=== PATIENT | female | born 1990 | race Caucasian/White ===

== ENCOUNTER → 2022-11-12 10:28 | Outpatient (BNVA) | payer MEDICAID, SELFPAY | PROVIDERS: Visit Provider Nurse Practitioner Family | DX: N89.8 Other specified noninflammatory disorders of vagina (principal) | CPT/HCPCS: 81000 ==

== ENCOUNTER → 2022-11-15 11:44 | Outpatient (BNVA) | payer MEDICAID, SELFPAY | PROVIDERS: Visit Provider Psychiatry & Neurology Psychiatry | DX: F20.9 Schizophrenia, unspecified (principal); F15.21 Other stimulant dependence, in remission | CPT/HCPCS: 80053; 80061; 83036; 84443; 85025 ==

== ENCOUNTER 2022-11-26 15:43 | Inpatient (IN) | payer MEDICAID, SELFPAY ==
[2022-11-26 15:55] VITALS: BP 101/78; PULSE 96; RESP 18; TEMP 36.8; O2SAT 96; BMI 43.3
--- NOTE | 2022-11-26 16:09 | W.ED.PSYCHS ---
HPI - Psych General: Chief Complaint: Psychiatric Symptoms Stated Complaint: 96 hr hold Time Seen by Provider: 11/26/22 15:55 Source: patient Mode of arrival: other (Police Department for 96-hour hold) Limitations: no limitations History of Present Illness: This patient was transported to our emergency department by Police Department under the auspices of a court ordered 96-hour hold. There is no illuminating history provided in terms of affidavit's etc. with this patient. Patient states that her understanding is that she was transported here by police department because she had used meth earlier today. Her rehab facility and apparently had used meth and resulted in her winding up in our facility. She denies any current thoughts of harm to self or harm to others. She denies any other drug or alcohol use today. She denies any constitutional or physical complaints. Associated symptoms: Deny homicidal ideation or suicidal ideation Treatments prior to arrival: placed on mental health hold Review of Systems Const: Denies: fever(s) or chills Eyes: Denies: change in vision ENMT: Denies: throat pain, odynophagia, nasal congestion or nasal obstruction Card: Denies: chest pain or syncope Resp: Denies: dyspnea, productive cough or non-productive cough GI: Denies: abdominal pain, nausea, vomiting or diarrhea : Reports: amenorrhea (Approximately 3 months); Denies: flank pain or vaginal bleeding Musc: Denies: neck pain, back pain, extremity pain or extremity swelling Skin/Breast: Denies: rash Psych: Denies: suicidal ideation or homicidal ideation Endo: Denies: polyuria or polydipsia PFSH ED PFSH: Medical History Psychiatric care Schizoaffective disorder Surgical History History of left knee surgery Family History Mother Cancer cervical Other Diabetes Hyperlipidemia Hypertension Denies family history of Colon cancer Ovarian cancer Heart disease Breast cancer Uterine cancer Thyroid disease Stroke Physical Exam Narrative: EXAM NARRATIVE: The patient has some intermittent lipsmacking behavior but makes good eye contact and will answer my questions in a reasonable and goal-directed fashion. She is cooperative. Const: COMMON NORMALS: patient oriented x3 and alert GENERAL APPEARANCE: cooperative NUTRITIONAL APPEARANCE: overweight ORIENTATION/CONSCIOUSNESS: Yes awake, Yes oriented to person and Yes oriented to place HENMT: COMMON NORMALS: normocephalic, Normal nasal mucous membranes and turbinates present, moist oral mucous membranes and oropharynx normal HEAD & SCALP: normocephalic NOSE: Normal nasal mucous membranes and turbinates present Eye: COMMON NORMALS: Equal, round and reactive pupils present, EOMs intact bilaterally and conjunctivae normal CONJUNCTIVA: Yes conjunctivae normal PUPIL: Yes Equal, round and reactive pupils present Neck/C-Spine: COMMON NORMALS: full ROM and no lymphadenopathy Chest: COMMONS NORMALS: normal inspection of the chest Resp: COMMON NORMALS: normal respiratory effort and clear to auscultation bilaterally EFFORT & INSPECTION: Yes able to speak in complete sentences AUSCULTATION: clear to auscultation bilaterally Cardio: COMMON NORMALS: regular rate, regular rhythm and Peripheral pulses 2+ throughout RATE: regular rate RHYTHM: regular rhythm PERIPHERAL PULSES: Peripheral pulses 2+ throughout GI: COMMON NORMALS: Normal to inspection, nondistended, normoactive bowel sounds present INSPECTION: Yes central obesity : COMMON NORMALS: Yes no CVA tenderness BLADDER/KIDNEY EXAM: Yes no CVA tenderness Back/Pelvis: COMMON NORMALS: no CVA tenderness, no thoracic nor lumbar tenderness and thoraco-lumbar ROM normal Extremity: COMMON NORMALS: normal to inspection, full ROM and no pedal edema Neuro: COMMON NORMALS: patient oriented x3, moves all extremities and no focal motor deficits SENSORIUM/ORIENTATION: Yes alert, Yes oriented to person and Yes oriented to place Psych: COMMON NORMALS: denies homicidal ideation and denies suicidal ideation ACTIVITY/MOTOR BEHAVIOR: Yes appropriate eye contact and Yes fidgeting SPEECH: Yes delayed MOOD & AFFECT: Yes anxious THOUGHT PROCESS: Circumstantial thought process present ATTENTION/CONCENTRATION: Yes attention grossly intact Skin: COMMON NORMALS: no rashes or lesions noted, no wounds and turgor normal GENERAL SKIN EXAM: no rashes or lesions noted and turgor normal Course Reevaluation(s): Reevaluation #1: We obtained additional information included the affidavit and application for her 96-hour hold. She apparently has been displaying increasingly bizarre behavior and hallucinations according to the affidavit. Time: 17:45 Consultations: Consultation #1: Discussed with on-call psychiatrist who agreed to admit the patient. Time: 17:50 Vital Signs: Vital signs: Vital Signs Temperature 98.3 F 11/26/22 15:55 Pulse Rate 96 11/26/22 15:55 Respiratory Rate 18 11/26/22 15:55 Blood Pressure 101/78 11/26/22 15:55 Pulse Oximetry 96 11/26/22 16:13 Oxygen Delivery Me thod Room Air 11/26/22 16:13 MDM - Psych Medical Decision Making This patient was transported to our emergency department by police department with 96-hour court ordered hold for mental health evaluation. Accompanying affidavit which eventually made its way to the emergency department attested to her bizarre behavior, hallucinations and history of methamphetamine abuse. There was no current reference of homicidality or suicidality. Clinical examination reveals her to not display any signs of acute medical illness. She did have reasonable eye contact, was cooperative during the evaluation and her clinical examination was otherwise reassuring. She denies any thoughts of self-harm or harm to others at the time of her ED evaluation. She had no obvious physical stigmata on clinical examination or laboratory evaluation that would preclude her from being placed as an inpatient for additional mental health evaluation. Differential Diagnosis Likely chronic schizophrenia and drug-induced psychotic disorder Lab Data I reviewed the patient's lab results. 11/26/22 16:23 11/26/22 16:23 Laboratory Results WBC 11.07 10^3/uL (3.29-11.43) 11/26/22 16: RBC 4.46 10^6/uL (3.85-5.65) 11/26/22 16: Hgb 13.70 g/dL (11.27-16.99) 11/26/22 16:23 Hct 39.5 % (36-47) 11/26/22 16:23 MCV 88.6 fl (85-98) 11/26/22 16: MCH 30.7 pg (27-33) 11/26/22 16: MCHC 34.7 g/dL (30-55) 11/26/22 16: RDW 11.8 % (12.1-15.1) L 11/26/22 16:23 Plt Count 263 10^3/cmm (157-399) 11/26/22 16: MPV 9.3 fL (7.4-10.4) 11/26/22 16: Neut % (Auto) 63.4 % 11/26/22 16:23 Lymph % (Auto) 28.0 % 11/26/22 16:23 Cass % (Auto) 6.7 % 11/26/22 16:23 Eos % (Auto) 1.0 % 11/26/22 16:23 Baso % (Auto) 0.4 % 11/26/22 16:23 Neut # (Auto) 7.03 10^3/uL (1.8-7.7) 11/26/22 16:23 Lymph # (Auto) 3.1 10^3/uL (0.8-4.8) 11/26/22 16:23 Cass # (Auto) 0.7 10^3/uL (0.2-0.9) 11/26/22 16:23 Eos # (Auto) 0.1 10^3/uL (0.0-0.8) 11/26/22 16: Baso # (Auto) 0.0 10^3/uL (0.0-0.1) 11/26/22 16: Nucleated RBC % (auto) 0 % 11/26/22 16: Nucleated RBCs # 0.0 /100WBC 11/26/22 16:23 Sodium 141 mmol/L (136-145) 11/26/22 16:23 Potassium 3.8 mmol/L (3.5-5.1) 11/26/22 16:23 Chloride 107 mmol/L (98-107) 11/26/22 16:23 Carbon Dioxide 26 mmol/L (22-29) 11/26/22 16:23 Anion Gap 11.8 (5-19) 11/26/22 16:23 BUN 16 mg/dL (6-20) 11/26/22 16:23 Creatinine 0.7 mg/dL (0.5-0.9) 11/26/22 16:23 GFR Calculation 97.0 mL/min (90-130) 11/26/22 16:23 Glucose 95 mg/dL (65-115) 11/26/22 16:23 Calculated Osmolality 293 mOsm/kg (285-295) 11/26/22 16:23 Calcium 9.1 mg/dL (8.5-10.5) 11/26/22 16:23 Total Bilirubin 0.2 mg/dL (0.15-1.2) 11/26/22 16:23 AST 13 U/L (0-32) 11/26/22 16:23 ALT 12 U/L (0-33) 11/26/22 16:23 Alkaline Phosphatase 74 U/L (35-105) 11/26/22 16:23 Total Protein 6.6 g/dL (6.6-8.7) 11/26/22 16:23 Albumin 4.0 g/dL (3.5-5.2) 11/26/22 16:23 Globulin 2.6 g/dL (1.3-4.6) 11/26/22 16:23 Salicylates 0.4 mg/dL (3-10) L 11/26/22 16:23 Acetaminophen < 5.0 ug/mL (10-30) L 11/26/22 16:23 Ethyl Alcohol < 10 mg/dL (0-10) 11/26/22 16:23 No radiology studies performed this visit Discharge Plan Discharge Patient Disposition: Admitted As Inpatient Clinical Impression: Chronic schizophrenia, Drug-induced psychotic disorder Condition: Stable Prescriptions: No Action Invega Sustenna 234 mg/1.5 mL syringe 234 mg IM .Q 3 weeks Qty: 1.5 2RF lamotrigine 25 mg tablet 25 mg PO DAILY gabapentin 300 mg capsule 300 mg PO BID escitalopram oxalate 10 mg tablet 10 mg PO DAILY Invega 6 mg Tablet Extended Release 24 Hr 6 mg PO QAM Coding Level of Care Code ED Financial Service Professional for Samantha Loco
[2022-11-26 16:13] VITALS: O2SAT 96
[2022-11-26 16:33] LABS: Basophils % 0.4 %; Eosinophils # 0.1 10^3/uL (0.0-0.8); Hematocrit 39.5 % (36-47); Lymphocytes # 3.1 10^3/uL (0.8-4.8); Mean Corpuscular HGB Conc 34.7 g/dL (30-55); Mean Corpuscular Hemoglobin 30.7 pg (27-33); Mean Corpuscular Volume 88.6 fl (85-98); Mean Platelet Volume 9.3 fL (7.4-10.4); Monocytes # 0.7 10^3/uL (0.2-0.9); Monocytes % 6.7 %; Neutrophils # 7.03 10^3/uL (1.8-7.7); Neutrophils % 63.4 %; Nucleated Red Blood Cells % 0 %; Platelet Count 263 10^3/cmm (157-399); Red Blood Count 4.46 10^6/uL (3.85-5.65); Red Cell Distribution Width 11.8 % (12.1-15.1); White Blood Count 11.07 10^3/uL (3.29-11.43)
[2022-11-26 16:46] LABS: Alanine Aminotransferase 12 U/L (0-33); Alkaline Phosphatase 74 U/L (35-105); Anion Gap 11.8 (5-19); Aspartate Amino Transferase 13 U/L (0-32); Blood Urea Nitrogen 16 mg/dL (6-20); Calcium 9.1 mg/dL (8.5-10.5); Carbon Dioxide 26 mmol/L (22-29); Chloride 107 mmol/L (98-107); Globulin 2.6 g/dL (1.3-4.6); Glucose 95 mg/dL (65-115); Osmolality Calculated 293 mOsm/kg (285-295); Potassium 3.8 mmol/L (3.5-5.1); Salicylate 0.4 mg/dL (3-10); Sodium 141 mmol/L (136-145); Total Bilirubin 0.2 mg/dL (0.15-1.2); Total Protein 6.6 g/dL (6.6-8.7)
[2022-11-26 17:08] LABS: Acetaminophen < 5.0 ug/mL (10-30); Alcohol Level < 10 mg/dL (0-10)
[2022-11-26 17:53] VITALS: BP 121/85; PULSE 86; RESP 18; TEMP 36.9; O2SAT 97
[2022-11-26 17:58] LABS: HCG Qualitative Urine. Negative (Negative)
[2022-11-26 18:09] LABS: Amphetamines Screen Urine Negative (Negative); Barbiturates Screen Urine Negative (Negative); Benzodiazepines Screen Urine Negative (Negative); Cocaine Screen Urine Negative (Negative); Opiate Screen Urine Negative (Negative); PCP Screen Urine Negative (Negative); THC Screen Urine Negative (Negative)
[2022-11-26 19:02] LABS: HCG Qualitative Urine. Negative (Negative)
[2022-11-26] MEDS: ibuprofen 600 mg Tablet PO (19:31)
[2022-11-26 20:24] VITALS: BP 121/78; PULSE 84; RESP 20; TEMP 36.9; O2SAT 95
[2022-11-27 06:00] VITALS: BP 98/61; PULSE 80; RESP 16; TEMP 36.9; O2SAT 93
[2022-11-27] MEDS: ibuprofen 600 mg Tablet PO (09:29)
[2022-11-27] MEDS: lamoTRIgine 25 mg Tablet PO (09:30)
[2022-11-27] MEDS: escitalopram 10 mg Tablet PO (09:30)
[2022-11-27] MEDS: gabapentin 300 mg Capsule PO ×2 (09:30→18:30)
--- NOTE | 2022-11-27 09:57 | PC.NURSE ---
Patient got up to eat breakfast this morning and then went back to bed. She appears disheveled in appearance. Patient denied si/hi and avh. However, she did take an extended period of time to respond to questions and would look around the room as if she was confused.
[2022-11-27 13:20] VITALS: BP 101/64; PULSE 76; RESP 14; TEMP 36.9; O2SAT 93
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
[2022-11-27 19:34] VITALS: BP 106/77; PULSE 89; RESP 18; TEMP 36.9; O2SAT 95
[2022-11-27 19:36] VITALS: BMI 43.2
[2022-11-28 06:00] VITALS: BP 120/84; PULSE 66; RESP 16; TEMP 36.8; O2SAT 95
[2022-11-28] MEDS: escitalopram 10 mg Tablet PO (09:52)
[2022-11-28] MEDS: lamoTRIgine 25 mg Tablet PO ×2 (09:52→17:41)
[2022-11-28] MEDS: gabapentin 300 mg Capsule PO ×2 (09:53→17:41)
[2022-11-28] MEDS: ibuprofen 600 mg Tablet PO (09:53)
[2022-11-28 14:00] VITALS: BP 78/51; PULSE 76; RESP 14; TEMP 36.8; O2SAT 97
[2022-11-28] MEDS: haloperidol 5 mg Tablet PO ×2 (14:33→17:42)
--- NOTE | 2022-11-28 16:12 | P.NPUPN_ITS ---
Subjective NPU Subjective: The patient is a 32-year-old white female with a history of methamphetamine abuse and psychosis who was admitted due to bizarre behavior and active paranoia and auditory hallucinations with an inability to care for herself. The patient continued to appear to be wandering around the unit without any particular direction. She had required some prompting to engage in leaving her room and e ating and showering. Patient had not engaged in any meaningful conversation today and appeared to isolate herself throughout the day. Mental Status Exam MSE Comments: Disheveled white female who appeared older than her stated age she was sitting in dayroom with a blank stare on her face. There was significant psychomotor retardation. There was no evidence of any abnormal involuntary motor movements tics or tremors appreciated. Her speech was monotone diminished in volume and diminished in productivity with signficant paucity of speech. Her thought process was concrete as she appeared very guarded on interview. She did appear at times to be responding to internal stimuli. Her mood was described as okay. Her affect was odd and subdued. She denied any homicidal or suicidal ideation. She appeared quite paranoid and she repeatedly asked at times why the administrative underwriter was asking these questions. Her recent and remote memory appeared impaired. Her insight is feeble. Her judgment is poor. Her impulse control appeared limited. Her attention span appeared impaired. Vitals/I&O/Wt Last Vital Signs Temp 98.2 F 11/28/22 14:00 Pulse 76 11/28/22 14:00 Resp 14 11/28/22 14:00 BP 78/51 11/28/22 14:00 Pulse Ox 97 11/28/22 14:00 O2 Del Method Room Air 11/28/22 14:00 Weight last 48 hrs Weight 128.962 kg Data NPU 11/26/22 16:23 11/26/22 16:23 A&P Assessment and plan (1) Chronic schizophrenia: (2) Drug-induced psychotic disorder: (3) Post-traumatic stress disorder, chronic: (4) Methamphetamine dependence: Plan This is a 32-year-old white female with schizophrenia admitted with disorganized thinking and disorganized behavior unable to maintain safety while residing in an inpatient substance abuse treatment center. 1. ?Encourage individual, group and milieu therapy. 2. Recommend sober living treatment at the highest level of care to which the patient is willing to commit. 3. Continue q-15 minute checks for safety.? 4. Haldol 5mg bid, lamotrigine 25mg bid. Involuntary Hold Information 96 Hour Hold: 96 Hour Involuntary Admission: Yes 96 Hour Hold Ending Date: 12/02/22 96 Hour Hold Ending Time: 15:55 Attestations NPU Medical Necessity Statement*: Inpatient hospitalization is medically necessary and deemed to be the ?clinically appropriate intervention ?at this time.? We will monitor/initiate medications and make changes as indicated.?? Her likely length of stay 7-10 days. Coding Level of Care Code Acute Code for [facility] Fwd Diagnoses Chronic schizophrenia F20.9 Drug-induced psychotic disorder F19.959 Post-traumatic stress disorder, chronic F43.12 Methamphetamine dependence F15.20
[2022-11-28 20:08] VITALS: BP 106/72; PULSE 88; RESP 15; O2SAT 93
[2022-11-28] MEDS: quetiapine 300 mg Tablet 150 MG PO (21:10)
[2022-11-29 06:00] VITALS: BP 110/72; PULSE 78; RESP 15; O2SAT 95
--- NOTE | 2022-11-29 08:56 | PC.NURSE ---
During morning assessment, patient stated that she was well . Patient denies all. Patient's responses are delayed. Patient pacing in place while this nurse attempted assessment.
[2022-11-29] MEDS: gabapentin 300 mg Capsule PO ×2 (09:48→17:25)
[2022-11-29] MEDS: escitalopram 10 mg Tablet PO (09:48)
[2022-11-29] MEDS: haloperidol 5 mg Tablet PO ×2 (09:48→17:25)
[2022-11-29] MEDS: lamoTRIgine 25 mg Tablet PO ×2 (09:48→17:25)
[2022-11-29 13:23] VITALS: BP 98/62; PULSE 85; RESP 14; O2SAT 95
--- NOTE | 2022-11-29 17:07 | W.PM.NPUPNS ---
Subjective NPU Subjective: The patient is a 32-year-old white female with a history of methamphetamine abuse and psychosis who was admitted due to bizarre behavior and active paranoia and auditory hallucinations with an inability to care for herself. previous notes had indicated that the patient had been prescribed Invega IM every 3 weeks it is unknown as to when she last received her IM Invega. She was restarted back on Haldol as previously suggested by Dr. Pace and continued to appear psychotic on the unit. She had come out for breakfast and did not appear to attend groups. She had continued to struggle with completion of activities of daily living. She had reported very little regarding her overall mood and continued to appear somewhat suspicious of others. The patient answered questions using a yes no fashion and was unable to elaborate regarding anything meaningful on interview other than the fact that she stated that she did not think that she needed to go back to [facility] for addiction treatment. Mental Status Exam MSE Comments: Disheveled white female who appeared older than her stated age who was seen staring off into space. There was significant psychomotor retardation. There was no evidence of any abnormal involuntary motor movements tics or tremors appreciated. Her speech was monotone diminished in volume and diminished in productivity in speech. Her thought process was concrete as she appeared very guarded on interview. She did appear at times to be responding to internal stimuli. Her mood was described as fine. Her affect was odd and subdued. She denied any homicidal or suicidal ideation. She appeared quite paranoid and she questioned the validity of the questions asked of her. Her recent and remote memory appeared impaired. Her insight is feeble. Her judgment is poor. Her impulse control appeared limited. Her attention span appeared impaired. Vitals/I&O/Wt Last Vital Signs Temp 98.2 F 11/28/22 14:00 Pulse 85 11/29/22 13:23 Resp 14 11/29/22 13:23 BP 98/62 11/29/22 13:23 Pulse Ox 95 11/29/22 13:23 O2 Del Method Room Air 11/29/22 13:23 Weight last 48 hrs Weight 128.962 kg Data NPU 11/26/22 16:23 11/26/22 16:23 A&P Assessment and plan (1) Chronic schizophrenia: (2) Drug-induced psychotic disorder: (3) Post-traumatic stress disorder, chronic: (4) Methamphetamine dependence: Plan This is a 32-year-old white female with schizophrenia admitted with disorganized thinking and disorganized behavior unable to maintain safety while residing in an inpatient substance abuse treatment center. 1. ?Encourage individual, group and milieu therapy. 2. Recommend sober living treatment at the highest level of care to which the patient is willing to commit. 3. Continue q-15 minute checks for safety.? 4. Haldol 5mg bid, lamotrigine 25mg bid. 5. Seroquel 150mg po qhs. Awaiting clarification as to WHEN the IM INVEGA was last given, will call [facility] inpatient to determine this. Involuntary Hold Information 96 Hour Hold: 96 Hour Involuntary Admission: Yes 96 Hour Hold Ending Date: 12/02/22 96 Hour Hold Ending Time: 15:55 Attestations NPU Medical Necessity Statement*: Inpatient hospitalization is medically necessary and deemed to be the ?clinically appropriate intervention ?at this time.? We will monitor/initiate medications and make changes as indicated.?? Her likely length of stay 7-10 days. Coding Level of Care Code Acute Code for [facility] Fwd Diagnoses Chronic schizophrenia F20.9 Drug-induced psychotic disorder F19.959 Post-traumatic stress disorder, chronic F43.12 Methamphetamine dependence F15.20
[2022-11-29] MEDS: hyDROXYzine 25 mg Capsule 50 MG PO (17:47)
--- NOTE | 2022-11-29 17:48 | PC.NURSE ---
ADMINISTERED 50MG VISTARIL PO TO PATIENT FOR ANXIETY. PATIENT WANTING TO BE TRANSFERRED TO ANOTHER FLOOR TO HAVE AN IV STARTED.
[2022-11-29] MEDS: quetiapine 300 mg Tablet 150 MG PO (20:32)
[2022-11-29 20:34] VITALS: BP 110/78; PULSE 78; RESP 14; TEMP 36.7; O2SAT 93
[2022-11-30 06:00] VITALS: BP 80/56; PULSE 92; RESP 15; TEMP 36.9; O2SAT 92
[2022-11-30] MEDS: escitalopram 10 mg Tablet PO (08:17)
[2022-11-30] MEDS: lamoTRIgine 25 mg Tablet PO ×2 (08:17→17:01)
[2022-11-30] MEDS: gabapentin 300 mg Capsule PO ×2 (08:17→17:01)
[2022-11-30] MEDS: haloperidol 5 mg Tablet PO ×2 (08:17→17:01)
--- NOTE | 2022-11-30 09:41 | PC.NURSE ---
During morning assessment, patient denies SI, HI, AVH, depression, and anxiety. Patient is less delayed during conversation this morning
--- NOTE | 2022-11-30 10:59 | PC.NURSE ---
THIS NURSE CONTACTED [facility]AL[facility] TO INQUIRE ABOUT THE LAST TIME PT RECEIVED HER INVEGA INJECTIONS. [facility] NURSE MARIANELA STATED THAT SHE LAST GAVE HER AND INJECTION ON 11/08/22 AT 1430
[2022-11-30] MEDS: paliperidone palmitate 234 mg Syringe IM (12:51)
--- NOTE | 2022-11-30 12:55 | PC.NURSE ---
Administered Invega Sustenna 234mg/1.5mL in right deltoid muscle. tolerated well. no adverse reactions. Lot:[id number] EXP: 04/2024
[2022-11-30 14:00] VITALS: BP 104/71; PULSE 94; RESP 16; TEMP 36.8; O2SAT 97
--- NOTE | 2022-11-30 16:17 | P.NPUPN_ITS ---
Subjective NPU Subjective: 32-year-old white female with a history of polysubstance abuse including methamphetamine abuse who was residing in a inpatient substance abuse treatment facility but presenting with continued worsening psychosis despite being on Invega Sustenna every 3 weeks. The patient continued to appear somewhat apathetic and a motivated. She had appeared to come out of the room a little more but continued to be minimally engaged while requiring significant prompting for showering. The patient received her routine 234 mg Invega sustain a today. She was unable to provide any clear information regarding where she was going when she left here and reported that she felt that she just was able to go home instead of returning back to [facility]. The patient had reported having few social supports. Staff notes patient had been sleeping and spent much of the day in bed. Mental Status Exam MSE Comments: Malodorous obese, unkempt, white female with severe lack of eye contact with a slow and steady gait. There was note no evidence of any abnormal involuntary motor movements tics or tremors appreciated. Her speech was monotone and quality with limited speech production and limited spontaneity of speech. There did appear to be a halting sound to her speech with increased latency in speech. Her thought process was concrete and nonlinear and she struggled to answer questions appropriately. Her thought content revealed no evidence of homicidal or suicidal ideation. Appeared unwilling to discuss any of her past issues. There was no clear evidence of any bizarre delusions today. Her recent and remote memory appeared poor. Her insight is poor. Her judgment is poor. Her impulse control appeared impaired. Vitals/I&O/Wt Last Vital Signs Temp 98.3 F 11/30/22 14:00 Pulse 94 11/30/22 14:00 Resp 16 11/30/22 14:00 BP 104/71 11/30/22 14:00 Pulse Ox 97 11/30/22 14:00 O2 Del Method Room Air 11/30/22 14:00 Data NPU 11/26/22 16:23 11/26/22 16:23 A&P Assessment and plan (1) Chronic schizophrenia: (2) Drug-induced psychotic disorder: (3) Post-traumatic stress disorder, chronic: (4) Methamphetamine dependence: (5) Depression, unspecified: Plan This is a 32-year-old white female with schizophrenia admitted with disorganized thinking and disorganized behavior unable to maintain safety while residing in an inpatient substance abuse treatment center. 1. ?Encourage individual, group and milieu therapy. 2. Recommend sober living treatment at the highest level of care to which the patient is willing to commit. 3. Continue q-15 minute checks for safety.? 4. Haldol 5mg bid, lamotrigine 25mg bid, lexapro 10mg daily, Invega IM 234mg q 3 weeks given today on 11/30/22. 5. continue Seroquel 150mg po qhs. Involuntary Hold Information 96 Hour Hold: 96 Hour Involuntary Admission: Yes 96 Hour Hold Ending Date: 12/02/22 96 Hour Hold Ending Time: 15:55 Attestations NPU Medical Necessity Statement*: Inpatient hospitalization is medically necessary and deemed to be the ?clinically appropriate intervention ?at this time.? We will monitor/initiate medications and make changes as indicated.??She remains on a hold at this time and will require continued intervention. Coding Level of Care Code Acute Code for [facility] Fwd Diagnoses Chronic schizophrenia F20.9 Drug-induced psychotic disorder F19.959 Post-traumatic stress disorder, chronic F43.12 Methamphetamine dependence F15.20 Depression, unspecified F32.A
[2022-11-30] MEDS: ibuprofen 600 mg Tablet PO (16:22)
--- NOTE | 2022-11-30 16:40 | PC.NURSE ---
Patient reports kidney pain, denies pain while voiding. ordered urinalysis to check for infection.
[2022-11-30 17:07] LABS: Bilirubin Urine Neg (Negative); Blood Urine Neg (Negative); Glucose Urine UA Norm (Normal); Ketones Urine Negative (Negative); Leukocyte Esterase Urine Trace (Negative); Nitrate Urine Negative (Negative); Protein Urine Neg (Negative); Specific Gravity, Urine 1.015 (1.005-1.030); Urine Appearance Cloudy (CLEAR); Urine Color Yellow (Yellow); Urobilinogen Urine Norm (Negative); pH Urine 7 (5-7)
[2022-11-30 17:11] LABS: Bacteria Urine 1+ /hpf; Mucus Urine 1+ /hpf; RBC Urine 0-4 /hpf (0-2); WBC Urine 0-4 /hpf (0-5)
[2022-11-30 17:12] LABS: Add Urine Culture? No
[2022-11-30 19:47] VITALS: BP 106/66; PULSE 77; RESP 17; TEMP 36.7; O2SAT 95
[2022-11-30] MEDS: quetiapine 300 mg Tablet 150 MG PO (20:57)
[2022-11-30 20:58] LABS: HIV 1 & 2 Antibody Non-Reactive (Non-Reactiv); HIV 1 & 2 Antigen Non-Reactive (Non-Reactiv)
[2022-11-30 21:33] LABS: Hepatitis C Virus Antibody Non-Reactive (Nonreactive)
[2022-11-30 21:35] LABS: Rapid Plasma Reagin Syphilis Nonreactive (Nonreactive)
[2022-12-01 06:00] VITALS: BP 107/68; PULSE 60; RESP 18; TEMP 36.8; O2SAT 94
[2022-12-01] MEDS: lamoTRIgine 25 mg Tablet PO ×2 (08:58→18:24)
[2022-12-01] MEDS: gabapentin 300 mg Capsule PO ×2 (08:58→18:24)
[2022-12-01] MEDS: escitalopram 10 mg Tablet PO (08:58)
[2022-12-01] MEDS: haloperidol 5 mg Tablet PO ×2 (08:58→18:24)
[2022-12-01 14:00] VITALS: BP 112/69; PULSE 69; RESP 16; TEMP 36.6; O2SAT 98
--- NOTE | 2022-12-01 16:49 | W.PM.NPUPNS ---
Subjective NPU Subjective: 32-year-old white female with a history of polysubstance abuse including methamphetamine abuse who was residing in a inpatient substance abuse treatment facility but presenting with continued worsening psychosis despite being on Invega Sustenna every 3 weeks. Continued psychosis noted as patient had reported that she needed a line to put methamphetamine inside of her. She repeatedly asked when she could go home. She continued to isolate on the mileu and did not attend groups. She reported adequate sleep and minimized having any problems here that require medication. Mental Status Exam MSE Comments: Malodorous obese, unkempt, malodorous white female with severe lack of eye contact with a slow and steady gait. There was note no evidence of any abnormal involuntary motor movements tics or tremors appreciated. Her speech was monotone and quality with limited speech production and limited spontaneity of speech. There was continued evidence of increased latency in speech. Her thought process was concrete and nonlinear and she struggled to answer questions appropriately. Her thought content revealed no evidence of homicidal or suicidal ideation. Appeared unwilling to discuss any of her past issues. There was no clear evidence of any bizarre delusions today. Her recent and remote memory appeared poor. Her insight is poor. Her judgment is poor. Her impulse control appeared impaired. Her intelligence was commensurate with mild cognitive impairment. Vitals/I&O/Wt Last Vital Signs Temp 98 F 12/01/22 14:00 Pulse 69 12/01/22 14:00 Resp 16 12/01/22 14:00 BP 112/69 12/01/22 14:00 Pulse Ox 98 12/01/22 14:00 O2 Del Method Room Air 12/01/22 14:00 Data NPU 11/26/22 16:23 11/26/22 16:23 A&P Assessment and plan (1) Chronic schizophrenia: (2) Drug-induced psychotic disorder: (3) Post-traumatic stress disorder, chronic: (4) Methamphetamine dependence: (5) Depression, unspecified: Plan This is a 32-year-old white female with schizophrenia admitted with disorganized thinking and disorganized behavior unable to maintain safety while residing in an inpatient substance abuse treatment center. 1. ?Encourage individual, group and milieu therapy. 2. Recommend sober living treatment at the highest level of care to which the patient is willing to commit. 3. Continue q-15 minute checks for safety.? 4. Haldol 5mg bid, lamotrigine 25mg bid, lexapro 10mg daily, Invega IM 234mg q 3 weeks given 11/30/22. 5. continue Seroquel 150mg po qhs. Involuntary Hold Information 96 Hour Hold: 96 Hour Involuntary Admission: Yes 96 Hour Hold Ending Date: 12/02/22 96 Hour Hold Ending Time: 15:55 Attestations NPU Medical Necessity Statement*: Inpatient hospitalization is medically necessary and deemed to be the ?clinically appropriate intervention ?at this time.? We will monitor/initiate medications and make changes as indicated.??She remains on a hold at this time and will require continued intervention. Her likely length of stay is 7-10 days. Coding Level of Care Code Acute Code for [facility] Fwd Diagnoses Chronic schizophrenia F20.9 Drug-induced psychotic disorder F19.959 Post-traumatic stress disorder, chronic F43.12 Methamphetamine dependence F15.20 Depression, unspecified F32.A
[2022-12-01] MEDS: quetiapine 300 mg Tablet 150 MG PO (20:21)
[2022-12-01 20:48] VITALS: BP 93/60; PULSE 67; RESP 15; TEMP 36.5; O2SAT 95
[2022-12-02 06:00] VITALS: BP 111/66; PULSE 60; RESP 15; TEMP 37.1; O2SAT 94
[2022-12-02] MEDS: lamoTRIgine 25 mg Tablet PO ×2 (08:59→17:42)
[2022-12-02] MEDS: haloperidol 5 mg Tablet PO ×2 (08:59→17:42)
[2022-12-02] MEDS: escitalopram 10 mg Tablet PO (08:59)
[2022-12-02] MEDS: gabapentin 300 mg Capsule PO ×2 (08:59→17:42)
[2022-12-02] MEDS: hyDROXYzine 25 mg Capsule 50 MG PO (09:03)
--- NOTE | 2022-12-02 12:10 | P.NPUPN_ITS ---
Subjective NPU Subjective: Patient presents today reporting she was doing better and wondering about discharge. She was quite odd in her statements and was unable to speak other than strangely. She was reported things affirmatively and positively even when it was incongruent with the presentation. Mental Status Exam MSE Comments: Malodorous obese, unkempt, malodorous white female with severe lack of eye contact with a slow and steady gait. There was note no evidence of any abnormal involuntary motor movements tics or tremors appreciated. Her speech was monotone and quality with limited speech production and limited spontaneity of speech. Mood described as okay and ready go, affect odd. There was continued ev idence of increased latency in speech. Her thought process was concrete and nonlinear and she struggled to answer questions appropriately. Her thought content revealed no evidence of homicidal or suicidal ideation. Appeared unwilling to discuss any of her past issues. There was no clear evidence of any bizarre delusions today. Her recent and remote memory appeared poor. Her insight is poor. Her judgment is poor. Her impulse control appeared impaired. Her intelligence was commensurate with mild cognitive impairment. Vitals/I&O/Wt Last Vital Signs Temp 98.7 F 12/02/22 06:00 Pulse 60 12/02/22 06:00 Resp 15 12/02/22 06:00 BP 111/66 12/02/22 06:00 Pulse Ox 94 12/02/22 06:00 O2 Del Method Room Air 12/02/22 06:00 Data NPU 11/26/22 16:23 11/26/22 16:23 A&P Assessment and plan (1) Chronic schizophrenia: (2) Drug-induced psychotic disorder: (3) Post-traumatic stress disorder, chronic: (4) Methamphetamine dependence: (5) Depression, unspecified: Plan This is a 32-year-old white female with schizophrenia admitted with disorganized thinking and disorganized behavior unable to maintain safety while residing in an inpatient substance abuse treatment center. 1. ?Encourage individual, group and milieu therapy. 2. Recommend sober living treatment at the highest level of care to which the patient is willing to commit. 3. Continue q-15 minute checks for safety.? 4. Haldol 5mg bid, lamotrigine 25mg bid, lexapro 10mg daily, Invega IM 234mg q 3 weeks given 10/3/23. 5. continue Seroquel 150mg po qhs. 6. 21-day hold filed in hearing on 12/07/2022 Involuntary Hold Information 96 Hour Hold: 96 Hour Involuntary Admission: Yes 96 Hour Hold Ending Date: 12/02/22 96 Hour Hold Ending Time: 15:55 Attestations NPU Medical Necessity Statement*: Inpatient hospitalization is medically necessary and deemed to be the ?clinically appropriate intervention ?at this time.? We will monitor/initiate medications and make changes as indicated.??She remains on a hold at this time and will require continued intervention. Her likely length of stay is 7-10 days. Coding Level of Care Code Acute Code for [facility] Fwd Diagnoses Chronic schizophrenia F20.9 Drug-induced psychotic disorder F19.959 Post-traumatic stress disorder, chronic F43.12 Methamphetamine dependence F15.20 Depression, unspecified F32.A
[2022-12-02] MEDS: ibuprofen 600 mg Tablet PO (13:21)
[2022-12-02 14:00] VITALS: BP 102/62; PULSE 99; RESP 16; TEMP 36.6; O2SAT 97
[2022-12-02 17:14] LABS: Chlamydia Trachomatis RNA TMA NOT DETECTED (NOT DETECTED); Neisseria Gonorrhoeae RNA, TMA NOT DETECTED (NOT DETECTED); Trichomonas Vaginalis RNA NOT DETECTED (NOT DETECTED)
[2022-12-02] MEDS: quetiapine 300 mg Tablet 150 MG PO (20:02)
[2022-12-02 20:26] VITALS: BP 111/62; PULSE 73; RESP 16; TEMP 36.6; O2SAT 96
[2022-12-03 06:00] VITALS: BP 102/67; PULSE 79; RESP 18; TEMP 36.8; O2SAT 95
[2022-12-03] MEDS: gabapentin 300 mg Capsule PO ×2 (07:57→17:31)
[2022-12-03] MEDS: haloperidol 5 mg Tablet PO ×2 (07:57→17:31)
[2022-12-03] MEDS: escitalopram 10 mg Tablet PO (07:57)
[2022-12-03] MEDS: lamoTRIgine 25 mg Tablet PO ×2 (07:57→17:31)
--- NOTE | 2022-12-03 11:15 | W.PM.NPUPNS ---
Subjective NPU Subjective: Patient presented today reporting that she would like to leave. Outside of that she continued to be somewhat nonsensical in her speech she continued to be clearly psychotic and we discussed her being on a hold till next Tuesday and the possibility for an extension to a 21-day hold. She is taking her medication as prescribed. Mental Status Exam MSE Comments: This is an obese versus morbidly obese white female in hospital scrubs with poor grooming but adequate eye contact. She was malodorous and unkempt. No abnormal movements except for significant psychomotor agitation shifting [id number] between her feet as she almost marches in place. Cooperative with exam in mild distress. Her speech was monotone and quality with limited speech production and limited spontaneity of speech. Mood described as fine I think I am ready to go, affect odd. Her thought process was concrete and nonlinear and she struggled to answer questions appropriately. Thought content: Patient denies suicidal or homicidal ideation, there were no delusions reported but paranoia noted, she denied auditory or visual hallucinations but concerns about hallucinations exist. Attention and concentration are limited and memory appears unreliable but none were formally tested. Her insight is poor. Her judgment is poor. Her impulse control appeared impaired. Intellectual ability appears limited. Vitals/I&O/Wt Last Vital Signs Temp 98.3 F 12/03/22 06:00 Pulse 79 12/03/22 06:00 Resp 18 12/03/22 06:00 BP 102/67 12/03/22 06:00 Pulse Ox 95 12/03/22 06:00 O2 Del Method Room Air 12/03/22 06:00 Data NPU 11/26/22 16:23 11/26/22 16:23 A&P Assessment and plan (1) Chronic schizophrenia: (2) Drug-induced psychotic disorder: (3) Post-traumatic stress disorder, chronic: (4) Methamphetamine dependence: (5) Depression, unspecified: Plan This is a 32-year-old white female with schizophrenia admitted with disorganized thinking and disorganized behavior unable to maintain safety while residing in an inpatient substance abuse treatment center. 1. ?Encourage individual, group and milieu therapy. 2. Recommend sober living treatment at the highest level of care to which the patient is willing to commit. 3. Continue q-15 minute checks for safety.? 4. Haldol 5mg bid, lamotrigine 25mg bid, lexapro 10mg daily, Invega IM 234mg q 3 weeks given 11/30/22. 5. continue Seroquel 150mg po qhs. 6. 21-day hold filed in hearing on 12/07/2022 Involuntary Hold Information 96 Hour Hold: 96 Hour Involuntary Admission: Yes 96 Hour Hold Ending Date: 12/02/22 96 Hour Hold Ending Time: 15:55 Attestations NPU Medical Necessity Statement*: Inpatient hospitalization is medically necessary and deemed to be the ?clinically appropriate intervention ?at this time.? We will monitor/initiate medications and make changes as indicated.??She remains on a hold at this time and will require continued intervention. Her likely length of stay is 7-10 days. Coding Level of Care Code Acute Code for g Fwd Diagnoses Chronic schizophrenia F20.9 Drug-induced psychotic disorder F19.959 Post-traumatic stress disorder, chronic F43.12 Methamphetamine dependence F15.20 Depression, unspecified F32.A
[2022-12-03] MEDS: hyDROXYzine 25 mg Capsule 50 MG PO (12:12)
[2022-12-03 14:00] VITALS: BP 122/81; PULSE 88; RESP 14; TEMP 36.6; O2SAT 97
[2022-12-03 20:10] VITALS: BP 117/78; PULSE 84; RESP 16; TEMP 36.9; O2SAT 93
[2022-12-03] MEDS: quetiapine 300 mg Tablet 150 MG PO (20:34)
[2022-12-04 06:00] VITALS: BP 110/82; PULSE 90; RESP 16; O2SAT 94
[2022-12-04] MEDS: haloperidol 5 mg Tablet PO ×2 (08:34→17:34)
[2022-12-04] MEDS: escitalopram 10 mg Tablet PO (08:34)
[2022-12-04] MEDS: lamoTRIgine 25 mg Tablet PO ×2 (08:34→17:34)
[2022-12-04] MEDS: gabapentin 300 mg Capsule PO ×2 (08:34→17:34)
--- NOTE | 2022-12-04 08:45 | PC.NURSE ---
During morning assessment, patient denied anxiety, depression, SI, HI, and AVH. Patient reports feeling jittery still . Patient pacing in place during assessment and smaking lips. Patient's speech somewhat delayed in response. Patient to take shower.
[2022-12-04] MEDS: ibuprofen 600 mg Tablet PO ×2 (09:54→16:47)
[2022-12-04] MEDS: ondansetron 4 MG Tablet PO (10:30)
--- NOTE | 2022-12-04 10:30 | PC.NURSE ---
Administered zofran 4mg PO to patient for nausea and vomiting. Will continue to monitor.
[2022-12-04 14:00] VITALS: BP 117/70; PULSE 83; RESP 17; TEMP 36.9; O2SAT 94
--- NOTE | 2022-12-04 16:32 | W.PM.NPUPNS ---
Subjective NPU Subjective: Patient presented today continuing to be somewhat confused and clearly psychotic. She continued to make random statements with odd topics. She did not really want to talk much as at the time he spoke she had just recently vomited and she had no explanation for why she threw up. We discussed keeping an eye on things and considering a consult if she continues to feel under the weather tomorrow. Mental Status Exam MSE Comments: This is an obese versus morbidly obese white female in hospital scrubs with poor grooming but adequate eye contact. She was malodorous and unkempt. No abnormal movements except for significant psychomotor agitation shifting [id number] between her feet as she almost marches in place. Cooperative with exam in mild distress. Her speech was monotone and quality with limited speech production and limited spontaneity of speech. Mood described as fine I think I am ready to go, affect odd. Her thought process was concrete and nonlinear and she struggled to answer questions appropriately. Thought content: Patient denies suicidal or homicidal ideation, there were no delusions reported but paranoia noted, she denied auditory or visual hallucinations but concerns about hallucinations exist. Attention and concentration are limited and memory appears unreliable but none were formally tested. Her insight is poor. Her judgment is poor. Her impulse control appeared impaired. Intellectual ability appears limited. Vitals/I&O/Wt Last Vital Signs Temp 98.5 F 12/04/22 14:00 Pulse 83 12/04/22 14:00 Resp 17 12/04/22 14:00 BP 117/70 12/04/22 14:00 Pulse Ox 94 12/04/22 14:00 O2 Del Method Room Air 12/04/22 06:00 Data NPU 11/26/22 16:23 11/26/22 16:23 A&P Assessment and plan (1) Chronic schizophrenia: (2) Drug-induced psychotic disorder: (3) Post-traumatic stress disorder, chronic: (4) Methamphetamine dependence: (5) Depression, unspecified: Plan This is a 32-year-old white female with schizophrenia admitted with disorganized thinking and disorganized behavior unable to maintain safety while residing in an inpatient substance abuse treatment center. 1. ?Encourage individual, group and milieu therapy. 2. Recommend sober living treatment at the highest level of care to which the patient is willing to commit. 3. Continue q-15 minute checks for safety.? 4. Haldol 5mg bid, lamotrigine 25mg bid, lexapro 10mg daily, Invega IM 234mg q 3 weeks given 11/30/22. 5. continue Seroquel 150mg po qhs. 6. 21-day hold filed in hearing on 12/07/2022 7. Monitor for additional emesis. If issues persist tomorrow we will consider a hospitalist consult. Involuntary Hold Information 96 Hour Hold: 96 Hour Involuntary Admission: Yes 96 Hour Hold Ending Date: 12/02/22 96 Hour Hold Ending Time: 15:55 Attestations NPU Medical Necessity Statement*: Inpatient hospitalization is medically necessary and deemed to be the ?clinically appropriate intervention ?at this time.? We will monitor/initiate medications and make changes as indicated.??She remains on a hold at this time and will require continued intervention. Her likely length of stay is 7-10 days. Coding Level of Care Code Acute Code for [facility] Fwd Diagnoses Chronic schizophrenia F20.9 Drug-induced psychotic disorder F19.959 Post-traumatic stress disorder, chronic F43.12 Methamphetamine dependence F15.20 Depression, unspecified F32.A
[2022-12-04] MEDS: quetiapine 300 mg Tablet 150 MG PO (20:22)
[2022-12-04 22:00] VITALS: BP 111/70; PULSE 80; RESP 16; TEMP 36.8; O2SAT 94
[2022-12-05 06:00] VITALS: BP 166/71; PULSE 75; RESP 16; O2SAT 95
[2022-12-05] MEDS: gabapentin 300 mg Capsule PO ×2 (08:29→17:15)
[2022-12-05] MEDS: lamoTRIgine 25 mg Tablet PO ×2 (08:29→17:14)
[2022-12-05] MEDS: escitalopram 10 mg Tablet PO (08:29)
[2022-12-05] MEDS: haloperidol 5 mg Tablet PO ×2 (08:29→17:15)
[2022-12-05] MEDS: blistex lip oint 7 gm Tube 1 APPLIC TOPICAL (09:42)
--- NOTE | 2022-12-05 12:28 | P.NPUPN_ITS ---
Subjective NPU Subjective: Patient presented today reporting that she is doing okay. She is feeling better than she did yesterday and denied any additional emesis. She reports that she is tolerating the medication fine and denied any additional issues. We discussed working with the social work team on discharge possibilities when they return tomorrow but that she was still having clear psychosis per staff and pres entation and will continue here on her hold. Mental Status Exam MSE Comments: This is an obese versus morbidly obese white female in hospital scrubs with poor grooming but adequate eye contact. She was malodorous and unkempt. No abnormal movements except for significant psychomotor agitation. Cooperative with exam in mild distress. Her speech was monotone with limited speech production and limited spontaneity of speech. Mood described as fine, affect odd. Her thought process was concrete and nonlinear and she struggled to answer questions appropriately. Thought content: Patient denies suicidal or homicidal ideation, there were no delusions reported but paranoia noted, she denied auditory or visual hallucinations but concerns about hallucinations exist. Attention and concentration are limited and memory appears unreliable but none were formally tested. Her insight is poor. Her judgment is poor. Her impulse control appeared impaired. Intellectual ability appears limited. Vitals/I&O/Wt Last Vital Signs Temp 98.2 F 12/04/22 22:00 Pulse 75 12/05/22 06:00 Resp 16 12/05/22 06:00 BP 166/71 12/05/22 06:00 Pulse Ox 95 12/05/22 06:00 O2 Del Method Room Air 12/05/22 06:00 Weight last 48 hrs Weight 417.759 kg Data NPU 11/26/22 16:23 11/26/22 16:23 A&P Assessment and plan (1) Chronic schizophrenia: (2) Drug-induced psychotic disorder: (3) Post-traumatic stress disorder, chronic: (4) Methamphetamine dependence: (5) Depression, unspecified: Plan This is a 32-year-old white female with schizophrenia admitted with disorganized thinking and disorganized behavior unable to maintain safety while residing in an inpatient substance abuse treatment center. 1. ?Encourage individual, group and milieu therapy. 2. Recommend sober living treatment at the highest level of care to which the patient is willing to commit. 3. Continue q-15 minute checks for safety.? 4. Haldol 5mg bid, lamotrigine 25mg bid, lexapro 10mg daily, Invega IM 234mg q 3 weeks given 11/30/22. 5. continue Seroquel 150mg po qhs. 6. 21-day hold filed in hearing on 12/07/2022 7. Monitor for additional emesis. If issues persist tomorrow we will consider a hospitalist consult. Involuntary Hold Information 96 Hour Hold: 96 Hour Involuntary Admission: Yes 96 Hour Hold Ending Date: 12/02/22 96 Hour Hold Ending Time: 15:55 Attestations NPU Medical Necessity Statement*: Inpatient hospitalization is medically necessary and deemed to be the ?clinically appropriate intervention ?at this time.? We will monitor/initiate medications and make changes as indicated.??She remains on a hold at this time and will require continued intervention. Her likely length of stay is 7-10 days. Coding Level of Care Code Acute Code for g Fwd Diagnoses Chronic schizophrenia F20.9 Drug-induced psychotic disorder F19.959 Post-traumatic stress disorder, chronic F43.12 Methamphetamine dependence F15.20 Depression, unspecified F32.A
[2022-12-05 14:00] VITALS: BP 119/75; PULSE 102; RESP 18; TEMP 36.9; O2SAT 95
[2022-12-05] MEDS: quetiapine 300 mg Tablet 150 MG PO (20:17)
[2022-12-05 20:19] VITALS: BP 99/61; PULSE 89; RESP 15; TEMP 36.9; O2SAT 93
[2022-12-06 06:00] VITALS: BP 96/68; PULSE 81; RESP 14; TEMP 36.6; O2SAT 96
[2022-12-06] MEDS: lamoTRIgine 25 mg Tablet PO ×2 (08:18→20:53)
[2022-12-06] MEDS: escitalopram 10 mg Tablet PO (08:18)
[2022-12-06] MEDS: gabapentin 300 mg Capsule PO ×2 (08:18→20:52)
[2022-12-06] MEDS: haloperidol 5 mg Tablet PO ×2 (08:19→20:52)
--- NOTE | 2022-12-06 11:12 | W.PM.NPUPNS ---
Subjective NPU Subjective: Patient presented today reporting that she is doing okay. She continued to have odd purposeless movements like opening and closing her mouth in different ways she was moving. She reports that the medications are helpful. We discussed her 21-day hold hearing tomorrow and she was asking whether she needed to stay. We discussed her oddities and continued psychosis and the need to continue her staying to work on those psychotic symptoms. Mental Status Exam MSE Comments: This is an obese versus morbidly obese white female in hospital scrubs with poor grooming but adequate eye contact. She was malodorous and unkempt. No abnormal movements except for psychomotor agitation. She was moving her mouth up and down making it almost smacking sound and when asked why she was doing that she said because she had been in rehab for almost a year and she might still be high. Cooperative with exam in mild distress. Her speech was monotone with good mostly normal rate and volume. Mood described as fine, affect odd. Her thought process was concrete and nonlinear and she struggled to answer questions appropriately. Thought content: Patient denies suicidal or homicidal ideation, there were no delusions reported but paranoia noted, she denied auditory or visual hallucinations but concerns about hallucinations exist. Attention and concentration are limited and memory appears unreliable but none were formally tested. Her insight is poor. Her judgment is poor. Her impulse control appeared impaired. Intellectual ability appears limited. Vitals/I&O/Wt Last Vital Signs Temp 97.8 F 12/06/22 06:00 Pulse 81 12/06/22 06:00 Resp 14 12/06/22 06:00 BP 96/68 12/06/22 06:00 Pulse Ox 96 12/06/22 06:00 O2 Del Method Room Air 12/06/22 06:00 Weight last 48 hrs Weight 417.759 kg Data NPU 11/26/22 16:23 11/26/22 16:23 A&P Assessment and plan (1) Chronic schizophrenia: (2) Drug-induced psychotic disorder: (3) Post-traumatic stress disorder, chronic: (4) Methamphetamine dependence: (5) Depression, unspecified: Plan This is a 32-year-old white female with schizophrenia admitted with disorganized thinking and disorganized behavior unable to maintain safety while residing in an inpatient substance abuse treatment center. 1. ?Encourage individual, group and milieu therapy. 2. Recommend sober living treatment at the highest level of care to which the patient is willing to commit. 3. Continue q-15 minute checks for safety.? 4. Haldol 5mg bid, lamotrigine 25mg bid, lexapro 10mg daily, Invega IM 234mg q 3 weeks given 11/30/22. 5. continue Seroquel 150mg po qhs. 6. 21-day hold filed in hearing on 12/07/2022 Involuntary Hold Information 96 Hour Hold: 96 Hour Involuntary Admission: Yes 96 Hour Hold Ending Date: 12/02/22 96 Hour Hold Ending Time: 15:55 Attestations NPU Medical Necessity Statement*: Inpatient hospitalization is medically necessary and deemed to be the ?clinically appropriate intervention ?at this time.? We will monitor/initiate medications and make changes as indicated.??She remains on a hold at this time and will require continued intervention. Her likely length of stay is 7-10 days. Coding Level of Care Code Acute Code for [facility] Fwd Diagnoses Chronic schizophrenia F20.9 Drug-induced psychotic disorder F19.959 Post-traumatic stress disorder, chronic F43.12 Methamphetamine dependence F15.20 Depression, unspecified F32.A
[2022-12-06 14:00] VITALS: BP 110/77; PULSE 112; RESP 16; TEMP 36.6; O2SAT 96
[2022-12-06] MEDS: nicotine 2 mg Gum BUCCAL ×2 (15:35→18:22)
[2022-12-06] MEDS: OLANZapine 5 mg ODT PO (18:47)
--- NOTE | 2022-12-06 18:48 | PC.NURSE ---
PRN ZYPREXA ZYDIS 5 MG GIVEN PO PER PT C/O SLIGHT AGITATION. OFFERED PRN VISTARIL FOR ANXIETY, STATED IT DOESN'T HELP PATIENT REQUESTING BENADRYL FOR HER COME DOWN THEN ASKED STAFF FOR A SLEEP AID. WAS TOLD BY NURSING STAFF SHE COULDN'T HAVE PRN TRAZODONE UNTIL 8PM OR LATER.
[2022-12-06 19:46] VITALS: BP 108/88; PULSE 122; RESP 18; TEMP 36.5; O2SAT 95
[2022-12-06] MEDS: quetiapine 300 mg Tablet 150 MG PO (20:53)
[2022-12-07 06:00] VITALS: BP 100/71; PULSE 79; RESP 16; O2SAT 93
[2022-12-07] MEDS: haloperidol 5 mg Tablet PO (08:59)
[2022-12-07] MEDS: escitalopram 10 mg Tablet PO (08:59)
[2022-12-07] MEDS: nicotine 2 mg Gum BUCCAL (08:59)
[2022-12-07] MEDS: gabapentin 300 mg Capsule PO (08:59)
[2022-12-07] MEDS: lamoTRIgine 25 mg Tablet PO (08:59)
--- NOTE | 2022-12-07 10:56 | W.PM.NPUPNS ---
Subjective NPU Subjective: Patient presented today reporting that things are going fine but she wants to leave. She continued to have odd behaviors and bizarre statements per staff and during her interview. She is somewhat isolative and very unclear on what she thinks should happen. We discussed her having her 21-day hold hearing today and that this entry writer would attend that hearing express our concerns about her continued psychosis and the need for continued care. We also discussed the fact that providers at [facility] who have known her for the past 10 months believe that guardianship is the appropriate direction and have engaged in that process. Mental Status Exam MSE Comments: This is an obese versus morbidly obese white female in hospital scrubs with poor grooming but adequate eye contact. She was malodorous and unkempt. No abnormal movements except for psychomotor agitation. She was moving her mouth up and down making it almost smacking sound and when asked why she was doing that she said because she had been in rehab for almost a year and she might still be high. Cooperative with exam in mild distress. Her speech was monotone with good mostly normal rate and volume. Mood described as fine, affect odd. Her thought process was concrete and nonlinear and she struggled to answer questions appropriately. Thought content: Patient denies suicidal or homicidal ideation, there were no delusions reported but paranoia noted, she denied auditory or visual hallucinations but concerns about hallucinations exist. Attention and concentration are limited and memory appears unreliable but none were formally tested. Her insight is poor. Her judgment is poor. Her impulse control appeared impaired. Intellectual ability appears limited. Vitals/I&O/Wt Last Vital Signs Temp 97.7 F 12/06/22 19:46 Pulse 79 12/07/22 06:00 Resp 16 12/07/22 06:00 BP 100/71 12/07/22 06:00 Pulse Ox 93 12/07/22 06:00 O2 Del Method Room Air 12/06/22 19:46 Data NPU 11/26/22 16:23 11/26/22 16:23 A&P Assessment and plan (1) Chronic schizophrenia: (2) Drug-induced psychotic disorder: (3) Post-traumatic stress disorder, chronic: (4) Methamphetamine dependence: (5) Depression, unspecified: Plan This is a 32-year-old white female with schizophrenia admitted with disorganized thinking and disorganized behavior unable to maintain safety while residing in an inpatient substance abuse treatment center. 1. ?Encourage individual, group and milieu therapy. 2. Recommend sober living treatment at the highest level of care to which the patient is willing to commit. 3. Continue q-15 minute checks for safety.? 4. Haldol 5mg bid, lamotrigine 25mg bid, lexapro 10mg daily, Invega IM 234mg q 3 weeks given 11/30/22. 5. continue Seroquel 150mg po qhs. 6. 21-day hold filed in hearing on 12/07/2022 at 1500 Involuntary Hold Information 96 Hour Hold: 96 Hour Involuntary Admission: Yes 96 Hour Hold Ending Date: 12/02/22 96 Hour Hold Ending Time: 15:55 Attestations NPU Medical Necessity Statement*: Inpatient hospitalization is medically necessary and deemed to be the ?clinically appropriate intervention ?at this time.? We will monitor/initiate medications and make changes as indicated.??She remains on a hold at this time and will require continued intervention. Her likely length of stay is 7-10 days. Coding Level of Care Code Acute Code for [facility] Fwd Diagnoses Chronic schizophrenia F20.9 Drug-induced psychotic disorder F19.959 Post-traumatic stress disorder, chronic F43.12 Methamphetamine dependence F15.20 Depression, unspecified F32.A
[2022-12-07 14:00] VITALS: BP 132/90; PULSE 118; RESP 16; TEMP 36.9; O2SAT 96
--- NOTE | 2022-12-07 14:54 | PC.NURSE ---
off unit for [address]
--- NOTE | 2022-12-07 15:46 | PC.NURSE ---
RETURN TO UNIT FROM COURT
[2022-12-07] MEDS: ibuprofen 600 mg Tablet PO (16:37)
[2022-12-07] MEDS: hyDROXYzine 25 mg Capsule 50 MG PO (17:04)
--- NOTE | 2022-12-07 17:04 | PC.NURSE ---
PRN VISTARIL VISTARIL 50 MG GIVEN PO PER PT C/O STATED ANXIETY, SPECIFICALLY ASKING FOR XANAX OR KLONOPIN OR BENADRYL
[2022-12-07 21:03] VITALS: BP 85/55; PULSE 75; RESP 20; O2SAT 94
[2022-12-08 06:00] VITALS: BP 145/87; PULSE 98; RESP 18; TEMP 36.7; O2SAT 94
--- NOTE | 2022-12-08 09:14 | W.PM.NPUPNS ---
Subjective NPU Subjective: Patient presented today reporting that she is doing fine. 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 She reports that she is trying to get a job here in [place] or back in [place]. She also asked for of her recovery book eventually. She was glad that the hearing yesterday was not about guardianship but she does not seem to understand that it does appear [employer] or someone connected with [employer] is pursuing guardianship. We did discuss in court that her current functioning is suggestive that guardianship would be reasonable. Mental Status Exam MSE Comments: This is an obese versus morbidly obese white female in hospital scrubs with poor grooming but adequate eye contact. She was malodorous and unkempt. No abnormal movements except for psychomotor agitation. She was moving her mouth up and down making it almost smacking sound. Cooperative with exam in mild distress. Her speech was monotone with mostly normal rate and volume. Mood described as fine, affect odd. Her thought process was concrete and nonlinear and she struggled to answer questions appropriately. Thought content: Patient denies suicidal or homicidal ideation, there were no delusions reported but paranoia and bizarre delusions/beliefs noted, she denied auditory or visual hallucinations but concerns about hallucinations exist. Attention and concentration are limited and memory appears unreliable but none were formally tested. Her insight is poor. Her judgment is poor. Her impulse control appeared impaired. Intellectual ability appears limited. Vitals/I&O/Wt Last Vital Signs Temp 98.0 F 12/08/22 06:00 Pulse 98 12/08/22 06:00 Resp 18 12/08/22 06:00 BP 145/87 12/08/22 06:00 Pulse Ox 94 12/08/22 06:00 O2 Del Method Room Air 12/08/22 06:00 Data NPU 11/26/22 16:23 11/26/22 16:23 A&P Assessment and plan (1) Chronic schizophrenia: (2) Drug-induced psychotic disorder: (3) Post-traumatic stress disorder, chronic: (4) Methamphetamine dependence: (5) Depression, unspecified: Plan This is a 32-year-old white female with schizophrenia admitted with disorganized thinking and disorganized behavior unable to maintain safety while residing in an inpatient substance abuse treatment center. 1. ?Encourage individual, group and milieu therapy. 2. Recommend sober living treatment at the highest level of care to which the patient is willing to commit. 3. Continue q-15 minute checks for safety.? 4. Haldol 5mg bid, lamotrigine 25mg bid, lexapro 10mg daily, Invega IM 234mg q 3 weeks given 11/30/22. 5. continue Seroquel 150mg po qhs. 6. Patient placed on 21-day hold 12/07/2022. Involuntary Hold Information 96 Hour Hold: 96 Hour Involuntary Admission: Yes 96 Hour Hold Ending Date: 12/02/22 96 Hour Hold Ending Time: 15:55 Attestations NPU Medical Necessity Statement*: Inpatient hospitalization is medically necessary and deemed to be the ?clinically appropriate intervention ?at this time.? We will monitor/initiate medications and make changes as indicated.??She remains on a hold at this time and will require continued intervention. Her likely length of stay is 7-10 days. Coding Level of Care Code Acute Code for [facility] Fwd Diagnoses Chronic schizophrenia F20.9 Drug-induced psychotic disorder F19.959 Post-traumatic stress disorder, chronic F43.12 Methamphetamine dependence F15.20 Depression, unspecified F32.A
[2022-12-08] MEDS: gabapentin 300 mg Capsule PO ×2 (10:37→20:37)
[2022-12-08] MEDS: lamoTRIgine 25 mg Tablet PO ×2 (10:38→20:39)
[2022-12-08] MEDS: escitalopram 10 mg Tablet PO (10:38)
[2022-12-08] MEDS: haloperidol 5 mg Tablet PO ×2 (10:38→20:39)
[2022-12-08] MEDS: nicotine 2 mg Gum BUCCAL ×2 (12:39→17:55)
[2022-12-08 14:00] VITALS: BP 106/77; PULSE 108; RESP 18; TEMP 36.9; O2SAT 96
[2022-12-08] MEDS: hyDROXYzine 25 mg Capsule 50 MG PO (18:41)
[2022-12-08] MEDS: quetiapine 300 mg Tablet 150 MG PO (20:37)
[2022-12-08 21:02] VITALS: BP 108/62; PULSE 82; RESP 18; TEMP 36.9; O2SAT 95
[2022-12-08] MEDS: trazodone 50 mg Tablet PO (22:00)
--- NOTE | 2022-12-09 06:59 | PC.NURSE ---
pt ref vs resp 16
[2022-12-09] MEDS: haloperidol 5 mg Tablet PO ×2 (08:17→20:05)
[2022-12-09] MEDS: escitalopram 10 mg Tablet PO (08:17)
[2022-12-09] MEDS: lamoTRIgine 25 mg Tablet PO ×2 (08:17→20:06)
[2022-12-09] MEDS: gabapentin 300 mg Capsule PO ×2 (08:17→20:05)
--- NOTE | 2022-12-09 12:02 | W.PM.NPUPNS ---
Subjective NPU Subjective: Patient presented to reporting that she is doing okay. She reports getting somewhat used to being here on the unit but not wanting to stay here too long. We discussed continuing to monitor her with the medication changes and identifying when there is improvement. She is not sold on the idea of guardianship but we discussed focusing first on her getting better and then about those kind of arrangements. Mental Status Exam MSE Comments: This is an obese versus morbidly obese white female in hospital scrubs with poor grooming but adequate eye contact. She was malodorous and unkempt. No abnormal movements except for psychomotor agitation. She was moving her mouth up and down making almost smacking sound. Cooperative with exam in mild distress. Her speech was monotone with mostly normal rate and volume. Mood described as fine, affect odd. Her thought process was concrete and nonlinear and she struggled to answer questions appropriately. Thought content: Patient denies suicidal or homicidal ideation, there were no delusions reported but paranoia and bizarre delusions/beliefs noted, she denied auditory or visual hallucinations but concerns about hallucinations exist. Attention and concentration are limited and memory appears unreliable but none were formally tested. Her insight is poor. Her judgment is poor. Her impulse control appeared impaired. Intellectual ability appears limited. Vitals/I&O/Wt Last Vital Signs Temp 98.5 F 12/08/22 21:02 Pulse 82 12/08/22 21:02 Resp 18 12/08/22 21:02 BP 108/62 12/08/22 21:02 Pulse Ox 95 12/08/22 21:02 O2 Del Method Room Air 12/08/22 21:02 Data NPU 11/26/22 16:23 11/26/22 16:23 A&P Assessment and plan (1) Chronic schizophrenia: (2) Drug-induced psychotic disorder: (3) Post-traumatic stress disorder, chronic: (4) Methamphetamine dependence: (5) Depression, unspecified: Plan This is a 32-year-old white female with schizophrenia admitted with disorganized thinking and disorganized behavior unable to maintain safety while residing in an inpatient substance abuse treatment center. 1. ?Encourage individual, group and milieu therapy. 2. Recommend sober living treatment at the highest level of care to which the patient is willing to commit. 3. Continue q-15 minute checks for safety.? 4. Haldol 5mg bid, lamotrigine 25mg bid, lexapro 10mg daily, Invega IM 234mg q 3 weeks given 11/30/22. 5. continue Seroquel 150mg po qhs. 6. Patient placed on 21-day hold 12/07/2022. Involuntary Hold Information 96 Hour Hold: 96 Hour Involuntary Admission: Yes 96 Hour Hold Ending Date: 12/02/22 96 Hour Hold Ending Time: 15:55 Attestations NPU Medical Necessity Statement*: Inpatient hospitalization is medically necessary and deemed to be the ?clinically appropriate intervention ?at this time.? We will monitor/initiate medications and make changes as indicated.??She remains on a hold at this time and will require continued intervention. Her likely length of stay is 7-10 days. Coding Level of Care Code Acute Code for g Fwd Diagnoses Chronic schizophrenia F20.9 Drug-induced psychotic disorder F19.959 Post-traumatic stress disorder, chronic F43.12 Methamphetamine dependence F15.20 Depression, unspecified F32.A
[2022-12-09 14:00] VITALS: BP 107/66; PULSE 86; RESP 17; TEMP 36.9; O2SAT 95
[2022-12-09] MEDS: quetiapine 300 mg Tablet 150 MG PO (20:05)
[2022-12-09 20:27] VITALS: BP 99/65; PULSE 85; RESP 16; TEMP 36.9; O2SAT 94
[2022-12-10 06:00] VITALS: RESP 16
--- NOTE | 2022-12-10 06:56 | PC.NURSE ---
patient refused vitals RR obtained
[2022-12-10] MEDS: gabapentin 300 mg Capsule PO ×2 (08:22→21:23)
[2022-12-10] MEDS: haloperidol 5 mg Tablet PO ×2 (08:22→21:24)
[2022-12-10] MEDS: lamoTRIgine 25 mg Tablet PO ×2 (08:22→21:24)
[2022-12-10] MEDS: nicotine 2 mg Gum BUCCAL ×2 (08:22→18:22)
[2022-12-10] MEDS: escitalopram 10 mg Tablet PO (08:22)
[2022-12-10 14:00] VITALS: BP 106/73; PULSE 86; RESP 16; TEMP 36.9; O2SAT 95
--- NOTE | 2022-12-10 14:04 | P.NPUPN_ITS ---
Subjective NPU Subjective: Patient presented today reporting that she is doing fine. We did discuss the guardianship pursuit of [employer]. She continues to say she does not think she needs a guardian but continues to have limitations functionally. We discussed the importance of her working with the treatment team to get better so that she could argue against guardianship. Otherwise she is somewhat isolative per staff and observation. Mental Status Exam MSE Comments: This is an obese versus morbidly obese white female in hospital scrubs with poor grooming but adequate eye contact. She was malodorous and unkempt. No abnormal movements except for psychomotor agitation. She was moving her mouth up and down making almost smacking sound. Cooperative with exam in mild distress. Her speech was monotone with mostly normal rate and volume. Mood described as fine, affect odd. Her thought process was concrete and nonlinear and she struggled to answer questions appropriately. Thought content: Patient denies suicidal or homicidal ideation, there were no delusions reported but paranoia and bizarre delusions/beliefs noted, she denied auditory or visual hallucinations but concerns about hallucinations exist. Attention and concentration are limited and memory appears unreliable but none were formally tested. Her insight is poor. Her judgment is poor. Her impulse control appeared impaired. Intellect ual ability appears limited. Vitals/I&O/Wt Last Vital Signs Temp 98.4 F 12/09/22 20:27 Pulse 85 12/09/22 20:27 Resp 16 12/10/22 06:00 BP 99/65 12/09/22 20:27 Pulse Ox 94 12/09/22 20:27 O2 Del Method Room Air 12/09/22 20:27 Data NPU 11/26/22 16:23 11/26/22 16:23 A&P Assessment and plan (1) Chronic schizophrenia: (2) Drug-induced psychotic disorder: (3) Post-traumatic stress disorder, chronic: (4) Methamphetamine dependence: (5) Depression, unspecified: Plan This is a 32-year-old white female with schizophrenia admitted with disorganized thinking and disorganized behavior unable to maintain safety while residing in an inpatient substance abuse treatment center. 1. ?Encourage individual, group and milieu therapy. 2. Recommend sober living treatment at the highest level of care to which the patient is willing to commit. 3. Continue q-15 minute checks for safety.? 4. Haldol 5mg bid, lamotrigine 25mg bid, lexapro 10mg daily, Invega IM 234mg q 3 weeks given 11/30/22. 5. continue Seroquel 150mg po qhs. 6. Patient placed on 21-day hold 12/07/2022. Involuntary Hold Information 96 Hour Hold: 96 Hour Involuntary Admission: Yes 96 Hour Hold Ending Date: 12/02/22 96 Hour Hold Ending Time: 15:55 Attestations NPU Medical Necessity Statement*: Inpatient hospitalization is medically necessary and deemed to be the ?clinically appropriate intervention ?at this time.? We will monitor/initiate medications and make changes as indicated.??She remains on a hold at this time and will require continued intervention. Her likely length of stay is 7-10 days. Coding Level of Care Code Acute Code for g Fwd Diagnoses Chronic schizophrenia F20.9 Drug-induced psychotic disorder F19.959 Post-traumatic stress disorder, chronic F43.12 Methamphetamine dependence F15.20 Depression, unspecified F32.A
[2022-12-10] MEDS: nicotine 4 mg lozenge MUCOUS MEM (15:50)
--- NOTE | 2022-12-10 20:58 | PC.NURSE ---
PT IN BED RESTING WITH COVERS OVER HEAD. ANSWERED ALL QUESTIONS YES/NO, VERY EVASIVE. PT WAS ENCOURAGED TO COME TAKE PM MEDS 3 SEPARATE TIMES AND CONTINUES TO DECLINE AND STAY IN BED. PT DENIES SI/HI AND AVH AT THIS TIME. DENIES PAIN. LAST BM ON 12/10/22
[2022-12-10] MEDS: quetiapine 300 mg Tablet 150 MG PO (21:24)
--- NOTE | 2022-12-10 21:25 | PC.NURSE ---
PT CAME TO NURSES STATION AND TOOK ALL PM MEDS ORDERED.
[2022-12-11 06:00] VITALS: BP 94/65; PULSE 87; RESP 16; TEMP 36.7; O2SAT 92
--- NOTE | 2022-12-11 08:25 | W.PM.NPUPNS ---
Subjective NPU Subjective: Patient presented today reporting that she is doing okay. For the second day in a row she is asking about Suboxone. We discussed contacting [facility] to see what their thoughts are given her history and their experience with her. Especially because once she is deemed stable she would likely return there and they are working on guardianship. She was okay with that plan. Otherwise she denies any concerns or problems. Mental Status Exam MSE Comments: This is an obese versus morbidly obese white female in hospital scrubs with poor grooming but adequate eye contact. She was malodorous and unkempt. No abnormal movements except for psychomotor agitation. She was moving her mouth up and down making almost smacking sound. Cooperative with exam in mild distress. Her speech was monotone with mostly normal rate and volume. Mood described as fine, affect odd. Her thought process was concrete and nonlinear and she struggled to answer questions appropriately. Thought content: Patient denies suicidal or homicidal ideation, there were no delusions reported but paranoia and bizarre delusions/beliefs noted, she denied auditory or visual hallucinations but concerns about hallucinations exist. Attention and concentration are limited and memory appears unreliable but none were formally tested. Her insight is poor. Her judgment is poor. Her impulse control appeared impaired. Intellectual ability appears limited. Vitals/I&O/Wt Last Vital Signs Temp 98.1 F 12/11/22 06:00 Pulse 87 12/11/22 06:00 Resp 16 12/11/22 06:00 BP 94/65 12/11/22 06:00 Pulse Ox 92 12/11/22 06:00 O2 Del Method Room Air 12/11/22 06:00 Data NPU 11/26/22 16:23 11/26/22 16:23 A&P Assessment and plan (1) Chronic schizophrenia: (2) Drug-induced psychotic disorder: (3) Post-traumatic stress disorder, chronic: (4) Methamphetamine dependence: (5) Depression, unspecified: Plan This is a 32-year-old white female with schizophrenia admitted with disorganized thinking and disorganized behavior unable to maintain safety while residing in an inpatient substance abuse treatment center. 1. ?Encourage individual, group and milieu therapy. 2. Recommend sober living treatment at the highest level of care to which the patient is willing to commit. 3. Continue q-15 minute checks for safety.? 4. Haldol 5mg bid, lamotrigine 25mg bid, lexapro 10mg daily, Invega IM 234mg q 3 weeks given 11/30/22. 5. continue Seroquel 150mg po qhs. 6. Patient placed on 21-day hold 12/07/2022. Involuntary Hold Information 96 Hour Hold: 96 Hour Involuntary Admission: Yes 96 Hour Hold Ending Date: 12/02/22 96 Hour Hold Ending Time: 15:55 Attestations NPU Medical Necessity Statement*: Inpatient hospitalization is medically necessary and deemed to be the ?clinically appropriate intervention ?at this time.? We will monitor/initiate medications and make changes as indicated.??She remains on a hold at this time and will require continued intervention. Her likely length of stay is 7-10 days. Coding Level of Care Code Acute Code for g Fwd Diagnoses Chronic schizophrenia F20.9 Drug-induced psychotic disorder F19.959 Post-traumatic stress disorder, chronic F43.12 Methamphetamine dependence F15.20 Depression, unspecified F32.A
[2022-12-11] MEDS: lamoTRIgine 25 mg Tablet PO ×2 (08:37→20:32)
[2022-12-11] MEDS: haloperidol 5 mg Tablet PO ×2 (08:37→20:32)
[2022-12-11] MEDS: escitalopram 10 mg Tablet PO (08:37)
[2022-12-11] MEDS: gabapentin 300 mg Capsule PO ×2 (08:37→20:32)
[2022-12-11 14:00] VITALS: BP 108/72; PULSE 81; RESP 16; TEMP 36.8; O2SAT 93
[2022-12-11] MEDS: nicotine 2 mg Gum BUCCAL (16:15)
[2022-12-11 20:09] VITALS: BP 86/59; PULSE 82; RESP 16; TEMP 36.7; O2SAT 96
--- NOTE | 2022-12-11 20:30 | PC.NURSE ---
PT OBSERVED EATING A SANDWICH WHILE LAYING DOWN FLAT ON HER BACK. PT WAS ENCOURAGED TO SIT UP TO EAT. PT DECLINES STATING I ALWAYS EAT LIKE THIS I'M FINE. PT WAS EDUCATED ON ADVERSE AFFECTS THAT CAN ARISE WHILE EATING LAYING FLAT. PT CONTINUED TO IGNORE RN. PT REPORTS PAIN IN MY KIDNEYS. RATES THE PAIN A 1/10, THE PAIN SCALE WAS EXPLAINED TO PT, PT THEN CHANGED HER RESPONSE TO 4/10. PT WAS UNABLE TO POINT TO HER KIDNEYS AND SHOW ME WHERE THE PAIN WAS. RN WILL ADMINISTER IBUPROFEN WHEN PT COMES UP FOR PM MEDS. PT DENIES SI/HI AND AVH AT THIS TIME. PT VERY EVASIVE AND DOES NOT CONVERSE APPROPRIATELY WITH STAFF. PT WAS ENCOURAGED 2 TIMES TO COME TO THE [facility] TO GET MEDS BUT PT HAS NOT ARRIVED. WILL CONTINUE TO ENCOURAGE MEDICATIONS. SUPPORT WAS VOICED.
[2022-12-11] MEDS: ibuprofen 600 mg Tablet PO (20:31)
[2022-12-11] MEDS: quetiapine 300 mg Tablet 150 MG PO (20:32)
[2022-12-12 06:00] VITALS: BP 108/70; PULSE 71; RESP 15; TEMP 36.9; O2SAT 93; BMI 43.7
[2022-12-12] MEDS: gabapentin 300 mg Capsule PO ×2 (09:41→20:25)
[2022-12-12] MEDS: lamoTRIgine 25 mg Tablet PO ×2 (09:41→20:25)
[2022-12-12] MEDS: escitalopram 10 mg Tablet PO (09:41)
[2022-12-12] MEDS: haloperidol 5 mg Tablet PO ×2 (09:41→20:25)
[2022-12-12 10:09] LABS: Add Urine Microscopic? YES; Bilirubin Urine Neg (Negative); Blood Urine Neg (Negative); Glucose Urine UA Norm (Normal); Ketones Urine Negative (Negative); Leukocyte Esterase Urine Negative (Negative); Nitrate Urine Negative (Negative); Protein Urine Neg (Negative); Specific Gravity, Urine 1.015 (1.005-1.030); Urine Appearance Hazy (CLEAR); Urine Color Yellow (Yellow); Urobilinogen Urine Norm (Negative); pH Urine 6.5 (5-7)
[2022-12-12 10:11] LABS: Squamous Epithelial Cell Urine 25-40 /hpf (0-5); WBC Urine RARE /hpf (0-5)
[2022-12-12 10:12] LABS: Add Urine Culture? No; Bacteria Urine 2+ /hpf; Mucus Urine 2+ /hpf
--- NOTE | 2022-12-12 12:41 | W.PM.NPUPNS ---
Subjective NPU Subjective: Patient presented today reporting that she is doing okay. She continued to her team of wondering if she could have Suboxone as part of her treatment regimen. We continue to discuss that we would connect with [facility] tomorrow when there is full staff returns and they are more likely to answer the phone to find out if Suboxone is ever been considered or if they think there is any role he could play in her recovery given their much greater knowledge of her and her history. Otherwise she continues to be in her room a lot and we encouraged less isolation. Mental Status Exam MSE Comments: This is an obese versus morbidly obese white female in hospital scrubs with poor grooming but adequate eye contact. She was malodorous and unkempt. No abnormal movements except for psychomotor agitation. She was moving her mouth up and down making almost smacking sound. Cooperative with exam in mild distress. Her speech was monotone with mostly normal rate and volume. Mood described as fine, affect odd. Her thought process was concrete and nonlinear and she struggled to answer questions appropriately. Thought content: Patient denies suicidal or homicidal ideation, there were no delusions reported but paranoia and bizarre delusions/beliefs noted, she denied auditory or visual hallucinations but concerns about hallucinations exist. Attention and concentration are limited and memory appears unreliable but none were formally tested. Her insight is poor. Her judgment is poor. Her impulse control appeared impaired. Intellectual ability appears limited. Vitals/I&O/Wt Last Vital Signs Temp 98.5 F 12/12/22 06:00 Pulse 71 12/12/22 06:00 Resp 15 12/12/22 06:00 BP 108/70 12/12/22 06:00 Pulse Ox 93 12/12/22 06:00 O2 Del Method Room Air 12/12/22 06:00 Weight last 48 hrs Weight 130.408 kg Weight 130.408 kg Data NPU 11/26/22 16:23 11/26/22 16:23 A&P Assessment and plan (1) Chronic schizophrenia: (2) Drug-induced psychotic disorder: (3) Post-traumatic stress disorder, chronic: (4) Methamphetamine dependence: (5) Depression, unspecified: Plan This is a 32-year-old white female with schizophrenia admitted with disorganized thinking and disorganized behavior unable to maintain safety while residing in an inpatient substance abuse treatment center. 1. ?Encourage individual, group and milieu therapy. 2. Recommend sober living treatment at the highest level of care to which the patient is willing to commit. 3. Continue q-15 minute checks for safety.? 4. Haldol 5mg bid, lamotrigine 25mg bid, lexapro 10mg daily, Invega IM 234mg q 3 weeks given 11/30/22. We will speak to [facility] tomorrow and find out if there is any role that Suboxone has played or they feel could play in the progress of her recovery. 5. continue Seroquel 150mg po qhs. 6. Patient placed on 21-day hold 12/07/2022. Involuntary Hold Information 96 Hour Hold: 96 Hour Involuntary Admission: Yes 96 Hour Hold Ending Date: 12/02/22 96 Hour Hold Ending Time: 15:55 Attestations NPU Medical Necessity Statement*: Inpatient hospitalization is medically necessary and deemed to be the ?clinically appropriate intervention ?at this time.? We will monitor/initiate medications and make changes as indicated.??She remains on a hold at this time and will require continued intervention. Her likely length of stay is 7-10 days. Coding Level of Care Code Acute Code for g Fwd Diagnoses Chronic schizophrenia F20.9 Drug-induced psychotic disorder F19.959 Post-traumatic stress disorder, chronic F43.12 Methamphetamine dependence F15.20 Depression, unspecified F32.A
[2022-12-12 14:00] VITALS: BP 108/72; PULSE 93; RESP 18; TEMP 36.5; O2SAT 96
[2022-12-12] MEDS: nicotine 2 mg Gum BUCCAL (17:44)
--- NOTE | 2022-12-12 18:06 | PC.NURSE ---
Patient asked this RN, do you have any tobacco I can have? This RN stated I did not, but did offer nicotine chewing gum and patient chose to try it. She also asked for job applications for multiple fast food chains and several were printed and given to her.
[2022-12-12] MEDS: ibuprofen 600 mg Tablet PO (18:46)
[2022-12-12 19:30] VITALS: BP 111/73; PULSE 89; RESP 13; TEMP 36.8; O2SAT 95
[2022-12-12] MEDS: quetiapine 300 mg Tablet 150 MG PO (20:25)
--- NOTE | 2022-12-12 20:38 | PC.NURSE ---
IN BED RESTING AROUSES TO VOICE. PT DENIES SI/HI AND AVH AT THIS TIME. URINALYSIS RESULTS REVIEWED. PT THOUGHT SHE HAD A UTI, PT WAS EDUCATED THAT THE UA WAS NEGATIVE, PT ENCOURAGED TO INCREASE PO INTAKE. PT EVASIVE WITH STAFF AND CONTINUES TO HAVE TIMES SHE IS IMPULSIVE. ALL QUESTIONS ANSWERED AND SUPPORT WAS VOICED.
[2022-12-13 06:00] VITALS: BP 113/70; PULSE 76; RESP 14; TEMP 36.9; O2SAT 95
[2022-12-13] MEDS: haloperidol 5 mg Tablet PO ×2 (08:35→20:33)
[2022-12-13] MEDS: escitalopram 10 mg Tablet PO (08:35)
[2022-12-13] MEDS: lamoTRIgine 25 mg Tablet PO ×2 (08:35→20:32)
[2022-12-13] MEDS: gabapentin 300 mg Capsule PO ×2 (08:35→20:32)
--- NOTE | 2022-12-13 13:58 | P.NPUPN_ITS ---
Subjective NPU Subjective: Patient presented today reporting that she is doing fine and adjusting to the medications. She once again brought up the request about Suboxone. We discussed that we were awaiting some kind of response from the [facility] staff about where things were. We did identify that the guardianship paperwork has been filed and we are hopeful for a speedy movement towards a trial/hearing date. Otherwise she denied any problems with her medications but does continue to be fairly isolative per staff and per observation. Mental Status Exam MSE Comments: This is an obese versus morbidly obese white female in hospital scrubs with poor grooming but adequate eye contact. She was malodorous and unkempt. No abnormal movements except for psychomotor agitation. She was moving her mouth up and down making almost smacking sound. Cooperative with exam in mild distress. Her speech was monotone with mostly normal rate and volume. Mood described as fine, affect odd. Her thought process was concrete and nonlinear and she struggled to answer questions appropriately. Thought content: Patient denies suicidal or homicidal ideation, there were no delusions reported but paranoia and bizarre delusions/beliefs noted, she denied auditory or visual hallucinations but concerns about hallucinations exist. Attention and concentration are limited and memory appears unreliable but none were formally tested. Her insight is poor. Her judgment is poor. Her impulse control appeared impaired. Intelle ctual ability appears limited. Vitals/I&O/Wt Last Vital Signs Temp 98.4 F 12/13/22 06:00 Pulse 76 12/13/22 06:00 Resp 14 12/13/22 06:00 BP 113/70 12/13/22 06:00 Pulse Ox 95 12/13/22 06:00 O2 Del Method Room Air 12/13/22 06:00 Weight last 48 hrs Weight 130.408 kg Weight 130.408 kg Data NPU 11/26/22 16:23 11/26/22 16:23 Micro: Microbiology 12/12/22 09:46 Urine Culture - Preliminary Urine,Clean Catch Gram Negative Rods Microbiology 12/12/22 09:46 Urine,Clean Catch Urine Culture - Preliminary Gram Negative Rods A&P Assessment and plan (1) Chronic schizophrenia: (2) Drug-induced psychotic disorder: (3) Post-traumatic stress disorder, chronic: (4) Methamphetamine dependence: (5) Depression, unspecified: Plan This is a 32-year-old white female with schizophrenia admitted with disorganized thinking and disorganized behavior unable to maintain safety while residing in a inpatient substance abuse treatment center. 1. ?Encourage individual, group and milieu therapy. 2. Recommend sober living treatment at the highest level of care to which the patient is willing to commit. 3. Continue q-15 minute checks for safety.? 4. Haldol 5mg bid, lamotrigine 25mg bid, lexapro 10mg daily, Invega IM 234mg q 3 weeks given 11/30/22. We will speak to [facility] tomorrow and find out if there is any role that Suboxone has played or they feel could play in the progr ess of her recovery. 5. continue Seroquel 150mg po qhs. 6. Patient placed on 21-day hold 12/07/2022. Involuntary Hold Information 96 Hour Hold: 96 Hour Involuntary Admission: Yes 96 Hour Hold Ending Date: 12/02/22 96 Hour Hold Ending Time: 15:55 Attestations NPU Medical Necessity Statement*: Inpatient hospitalization is medically necessary and deemed to be the ?clinically appropriate intervention ?at this time.? We will monitor/initiate m edications and make changes as indicated.??She remains on a hold at this time and will require continued intervention. Her likely length of stay is 7-10 days. Coding Level of Care Code Acute Code for [facility] Fwd Diagnoses Chronic schizophrenia F20.9 Drug-induced psychotic disorder F19.959 Post-traumatic stress disorder, chronic F43.12 Methamphetamine dependence F15.20 Depression, unspecified F32.A
[2022-12-13 14:00] VITALS: BP 124/91; PULSE 89; RESP 18; TEMP 36.7; O2SAT 99
[2022-12-13] MEDS: ibuprofen 600 mg Tablet PO (17:15)
[2022-12-13] MEDS: nicotine 2 mg Gum BUCCAL (18:03)
[2022-12-13 20:08] VITALS: BP 96/63; PULSE 93; RESP 18; TEMP 36.8; O2SAT 96
[2022-12-13] MEDS: quetiapine 300 mg Tablet 150 MG PO (20:32)
--- NOTE | 2022-12-13 21:19 | PC.NURSE ---
IN BED AROUSES TO VOICE. PT DENIES PAIN. DENIES SI/HI AND AVH AT THIS TIME. PT WAS ENCOURAGED TO GET UP AND PIN WORKER HER ROOM DUE TO HAVING TRASH, SNACK WRAPPERS AND FOOD IN THE FLOOR. PT DECLINED AT FIRST BUT DID EVENTUALLY GET UP AND CLEAN UP THE ROOM. PT WAS EDUCATED ON THE NEED TO CLEAN AND CARE FOR SELF. PT VERBALIZED UNDERSTANDING. TOOK PM MEDICATIONS WITHOUT ISSUES. SUPPORT VOICED.
[2022-12-14] MEDS: gabapentin 300 mg Capsule PO ×2 (10:47→20:55)
[2022-12-14] MEDS: haloperidol 5 mg Tablet PO ×2 (10:47→20:56)
[2022-12-14] MEDS: escitalopram 10 mg Tablet PO (10:48)
[2022-12-14] MEDS: lamoTRIgine 25 mg Tablet PO ×2 (10:48→20:56)
--- NOTE | 2022-12-14 13:26 | W.PM.NPUPNS ---
Subjective NPU Subjective: Patient presented today continuing to really focus on her desire for Suboxone. She reiterated her addiction and the medication helping with her withdrawal. We once again discussed the fact that she had been in a sober living facility for the last 10 to 12 months and they are not being continuum withdrawal symptoms this along away from use. We discussed the fact that guardianship paperwork has been filed and that we would not be clear on whether she would be returning to [facility] or not at the end of this process. Mental Status Exam MSE Comments: This is an obese versus morbidly obese white female in hospital scrubs with poor grooming but adequate eye contact. She was less malodorous and unkempt. No abnormal movements except for mild psychomotor agitation. She was moving her mouth up and down making almost smacking sound. Cooperative with exam in mild distress. Her speech was monotone with mostly normal rate and volume. Mood described as fine, affect odd. Her thought process was concrete and nonlinear and she struggled to answer questions appropriately. Thought content: Patient denies suicidal or homicidal ideation, there were no delusions reported but paranoia and bizarre delusions/beliefs noted, she denied auditory or visual hallucinations but concerns about hallucinations exist. Attention and concentration are limited and memory appears unreliable but none were formally tested. Her insight is poor. Her judgment is poor. Her impulse control appeared impaired. Intellectual ability appears limited. Vitals/I&O/Wt Last Vital Signs Temp 98.3 F 12/13/22 20:08 Pulse 93 12/13/22 20:08 Resp 18 12/13/22 20:08 BP 96/63 12/13/22 20:08 Pulse Ox 96 12/13/22 20:08 O2 Del Method Room Air 12/13/22 20:08 Data NPU 11/26/22 16:23 11/26/22 16:23 Micro: Microbiology 12/12/22 09:46 Urine Culture - Final Urine,Clean Catch Proteus mirabilis Microbiology 12/12/22 09:46 Urine,Clean Catch Urine Culture - Final Proteus mirabilis A&P Assessment and plan (1) Chronic schizophrenia: (2) Drug-induced psychotic disorder: (3) Post-traumatic stress disorder, chronic: (4) Methamphetamine dependence: (5) Depression, unspecified: Plan This is a 32-year-old white female with schizophrenia admitted with disorganized thinking and disorganized behavior unable to maintain safety while residing in an inpatient substance abuse treatment center. 1. ?Encourage individual, group and milieu therapy. 2. Recommend sober living treatment at the highest level of care to which the patient is willing to commit. 3. Continue q-15 minute checks for safety.? 4. Haldol 5mg bid, lamotrigine 25mg bid, lexapro 10mg daily, Invega IM 234mg q 3 weeks given 11/30/22. We will speak to [facility] tomorrow and find out if there is any role that Suboxone has played or they feel could play in the progress of her recovery. 5. continue Seroquel 150mg po qhs. 6. Patient placed on 21-day hold 12/07/2022. Involuntary Hold Information 96 Hour Hold: 96 Hour Involuntary Admission: Yes 96 Hour Hold Ending Date: 12/02/22 96 Hour Hold Ending Time: 15:55 Attestations NPU Medical Necessity Statement*: Inpatient hospitalization is medically necessary and deemed to be the ?clinically appropriate intervention ?at this time.? We will monitor/initiate medications and make changes as indicated.??She remains on a hold at this time and will require continued intervention. Her likely length of stay is 7-10 days. Coding Level of Care Code Acute Code for [facility] Fwd Diagnoses Chronic schizophrenia F20.9 Drug-induced psychotic disorder F19.959 Post-traumatic stress disorder, chronic F43.12 Methamphetamine dependence F15.20 Depression, unspecified F32.A
[2022-12-14 14:00] VITALS: BP 105/70; PULSE 90; RESP 18; TEMP 36.7; O2SAT 94
[2022-12-14] MEDS: OLANZapine 5 mg ODT PO (18:07)
[2022-12-14] MEDS: nicotine 2 mg Gum BUCCAL (18:09)
[2022-12-14 20:28] VITALS: BP 107/72; PULSE 115; RESP 15; TEMP 37; O2SAT 94
[2022-12-14] MEDS: quetiapine 300 mg Tablet 150 MG PO (20:55)
[2022-12-14] MEDS: trazodone 50 mg Tablet PO (20:56)
[2022-12-15 06:00] VITALS: BP 99/62; PULSE 88; RESP 15; TEMP 36.8; O2SAT 95
[2022-12-15] MEDS: haloperidol 5 mg Tablet PO ×2 (10:46→20:08)
[2022-12-15] MEDS: gabapentin 300 mg Capsule PO ×2 (10:47→20:08)
[2022-12-15] MEDS: lamoTRIgine 25 mg Tablet PO ×2 (10:47→20:08)
[2022-12-15] MEDS: escitalopram 10 mg Tablet PO (10:47)
[2022-12-15 14:00] VITALS: BP 96/65; PULSE 89; RESP 20; TEMP 36.6; O2SAT 98
[2022-12-15] MEDS: naltrexone hcl 50 mg Tablet PO (18:32)
[2022-12-15] MEDS: quetiapine 300 mg Tablet 150 MG PO (20:08)
--- NOTE | 2022-12-15 20:14 | W.PM.NPUPNS ---
Subjective NPU Subjective: Patient presented today reporting that she is still wanting to start Suboxone. She continues to report that it is for withdrawal and cravings. We discussed that we need to talk to her team at [facility] and they were not feeling that that would be a good plan. However we did discuss the risks, benefits and alternatives of starting naltrexone which she has been on in the past and she understood and agreed to proceed as is documented in this note. Mental Status Exam MSE Comments: This is an obese versus morbidly obese white female in hospital scrubs with poor grooming but adequate eye contact. She was malodorous and less unkempt. No abnormal movements except for mild psychomotor agitation. She continued to have her marching in place she was moving her mouth up and down making almost smacking sound. Cooperative with exam in mild distress. Her speech was monotone with mostly normal rate and volume. Mood described as fine, affect odd. Her thought process was concrete and nonlinear and she struggled to answer questions appropriately. Thought content: Patient denies suicidal or homicidal ideation, there were no delusions reported but paranoia and bizarre delusions/beliefs noted, she denied auditory or visual hallucinations but concerns about hallucinations exist. Attention and concentration are limited and memory appears unreliable but none were formally tested. Her insight is poor. Her judgment is poor. Her impulse control appeared impaired. Intellectual ability appears limited. Vitals/I&O/Wt Last Vital Signs Temp 97.9 F 12/15/22 14:00 Pulse 89 12/15/22 14:00 Resp 20 H 12/15/22 14:00 BP 96/65 12/15/22 14:00 Pulse Ox 98 12/15/22 14:00 O2 Del Method Room Air 12/15/22 06:00 Data NPU 11/26/22 16:23 11/26/22 16:23 A&P Assessment and plan (1) Chronic schizophrenia: (2) Drug-induced psychotic disorder: (3) Post-traumatic stress disorder, chronic: (4) Methamphetamine dependence: (5) Depression, unspecified: Plan This is a 32-year-old white female with schizophrenia admitted with disorganized thinking and disorganized behavior unable to maintain safety while residing in an inpatient substance abuse treatment center. 1. ?Encourage individual, group and milieu therapy. 2. Recommend sober living treatment at the highest level of care to which the patient is willing to commit. 3. Continue q-15 minute checks for safety.? 4. Haldol 5mg bid, lamotrigine 25mg bid, lexapro 10mg daily, Invega IM 234mg q 3 weeks given 11/30/22. [facility] reported concern with Suboxone as a part of her treatment plan. Start naltrexone 50 mg p.o. daily. 5. continue Seroquel 150mg po qhs. 6. Patient placed on 21-day hold 12/07/2022. Involuntary Hold Information 96 Hour Hold: 96 Hour Involuntary Admission: Yes 96 Hour Hold Ending Date: 12/02/22 96 Hour Hold Ending Time: 15:55 Attestations NPU Medical Necessity Statement*: Inpatient hospitalization is medically necessary and deemed to be the ?clinically appropriate intervention ?at this time.? We will monitor/initiate medications and make changes as indicated.??She remains on a hold at this time and will require continued intervention. Her likely length of stay is 7-10 days. Coding Level of Care Code Acute Code for [facility] Fwd Diagnoses Chronic schizophrenia F20.9 Drug-induced psychotic disorder F19.959 Post-traumatic stress disorder, chronic F43.12 Methamphetamine dependence F15.20 Depression, unspecified F32.A
[2022-12-15 20:19] VITALS: BP 119/80; PULSE 104; RESP 18; TEMP 36.4; O2SAT 96
[2022-12-16 06:00] VITALS: BP 116/73; PULSE 80; RESP 18; TEMP 36.8; O2SAT 94
[2022-12-16] MEDS: haloperidol 5 mg Tablet PO ×2 (08:59→20:08)
[2022-12-16] MEDS: lamoTRIgine 25 mg Tablet PO ×2 (08:59→20:08)
[2022-12-16] MEDS: naltrexone hcl 50 mg Tablet PO (08:59)
[2022-12-16] MEDS: gabapentin 300 mg Capsule PO ×2 (08:59→20:08)
[2022-12-16] MEDS: escitalopram 10 mg Tablet PO (08:59)
--- NOTE | 2022-12-16 13:05 | W.PM.NPUPNS ---
Subjective NPU Subjective: Patient presented today reporting that she is doing okay. She continues to ask about Suboxone that we continue to talk to her about her [facility] treatment plan. She continues to have mostly isolative behavior lying in bed a lot when she is up she is marching in place and endorsing that that is related to anxiety. We discussed the fact that guardianship process is underway. Mental Status Exam MSE Comments: This is an obese versus morbidly obese white female in hospital scrubs with poor grooming but adequate eye contact. She was malodorous and less unkempt. No abnormal movements except for mild psychomotor agitation. She continued to have her marching in place she was moving her mouth up and down making almost smacking sound. Cooperative with exam in mild distress. Her speech was monotone with mostly normal rate and volume. Mood described as fine, affect odd. Her thought process was concrete and nonlinear and she struggled to answer questions appropriately. Thought content: Patient denies suicidal or homicidal ideation, there were no delusions reported but paranoia and bizarre delusions/beliefs noted, she denied auditory or visual hallucinations but concerns about hallucinations exist. Attention and concentration are limited and memory appears unreliable but none were formally tested. Her insight is poor. Her judgment is poor. Her impulse control appeared impaired. Intellectual ability appears limited. Vitals/I&O/Wt Last Vital Signs Temp 98.2 F 12/16/22 06:00 Pulse 80 12/16/22 06:00 Resp 18 12/16/22 06:00 BP 116/73 12/16/22 06:00 Pulse Ox 94 12/16/22 06:00 O2 Del Method Room Air 12/16/22 06:00 Data NPU 11/26/22 16:23 11/26/22 16:23 A&P Assessment and plan (1) Chronic schizophrenia: (2) Drug-induced psychotic disorder: (3) Post-traumatic stress disorder, chronic: (4) Methamphetamine dependence: (5) Depression, unspecified: Plan This is a 32-year-old white female with schizophrenia admitted with disorganized thinking and disorganized behavior unable to maintain safety while residing in an inpatient substance abuse treatment center. 1. ?Encourage individual, group and milieu therapy. 2. Recommend sober living treatment at the highest level of care to which the patient is willing to commit. 3. Continue q-15 minute checks for safety.? 4. Haldol 5mg bid, lamotrigine 25mg bid, lexapro 10mg daily, Invega IM 234mg q 3 weeks given 11/30/22. Heather booker reported concern with Suboxone as a part of her treatment plan. Started naltrexone 50 mg p.o. daily. 5. continue Seroquel 150mg po qhs. 6. Patient placed on 21-day hold 12/07/2022. Involuntary Hold Information 96 Hour Hold: 96 Hour Involuntary Admission: Yes 96 Hour Hold Ending Date: 12/02/22 96 Hour Hold Ending Time: 15:55 Attestations NPU Medical Necessity Statement*: Inpatient hospitalization is medically necessary and deemed to be the ?clinically appropriate intervention ?at this time.? We will monitor/initiate medications and make changes as indicated.??She remains on a hold at this time and will require continued intervention. Her likely length of stay is 7-10 days. Coding Level of Care Code Acute Code for [facility] Diagnoses Chronic schizophrenia F20.9 Drug-induced psychotic disorder F19.959 Post-traumatic stress disorder, chronic F43.12 Methamphetamine dependence F15.20 Depression, unspecified F32.A
[2022-12-16 14:00] VITALS: BP 122/84; PULSE 79; RESP 16; TEMP 36.3; O2SAT 94
[2022-12-16] MEDS: ibuprofen 600 mg Tablet PO (15:24)
[2022-12-16] MEDS: nicotine 2 mg Gum BUCCAL (16:36)
[2022-12-16 19:34] VITALS: BP 126/86; PULSE 86; RESP 14; TEMP 36.4; O2SAT 98
[2022-12-16] MEDS: quetiapine 300 mg Tablet 150 MG PO (20:08)
--- NOTE | 2022-12-17 06:43 | PC.NURSE ---
Pt refused vitals. Pt resp 16
--- NOTE | 2022-12-17 07:26 | PC.NURSE ---
Patient resting in bed with eyes open, tapping feet quickly against one another. She denies avh and si/hi. She does state that she did not sleep well last night and that she usually does, but couldn't think of any factors that made it more difficult to sleep.
[2022-12-17] MEDS: haloperidol 5 mg Tablet PO ×2 (08:33→20:12)
[2022-12-17] MEDS: escitalopram 10 mg Tablet PO (08:33)
[2022-12-17] MEDS: naltrexone hcl 50 mg Tablet PO (08:33)
[2022-12-17] MEDS: gabapentin 300 mg Capsule PO ×2 (08:33→20:12)
[2022-12-17] MEDS: lamoTRIgine 25 mg Tablet PO (08:33)
--- NOTE | 2022-12-17 11:07 | P.NPUPN_ITS ---
Subjective NPU Subjective: Patient presented today being more calm about the Suboxone. We continue to discuss the plan for guardianship and the lack of clarity for whether she will [facility] to finish out her wait for placement or not. We discussed the possibility of different options as we are talking to her people at [facility] about level 2 which paperwork will be filed today or Tuesday. Otherwise she reports being okay but is continuing to be fairly isolative to her room. Mental Status Exam MSE Comments: This is an obese versus morbidly obese white female in hospital scrubs with poor grooming but adequate eye contact. She was malodorous and less unkempt. No abnormal movements except for mild psychomotor agitation. She continued to have her marching in place she was moving her mouth up and down making almost smacking sound. Cooperative with exam in mild distress. Her speech was monotone with mostly normal rate and volume. Mood described as fine, affect odd. Her thought process was concrete and nonlinear and she struggled to answer questions appropriately. Thought content: Patient denies suicidal or homicidal ideation, there were no delusions reported but paranoia and bizarre delusions/b eliefs noted, she denied auditory or visual hallucinations but concerns about hallucinations exist. Attention and concentration are limited and memory appears unreliable but none were formally tested. Her insight is poor. Her judgment is poor. Her impulse control appeared impaired. Intellectual ability appears limited. Vitals/I&O/Wt Last Vital Signs Temp 97.6 F 12/16/22 19:34 Pulse 86 12/16/22 19:34 Resp 14 12/16/22 19:34 BP 126/86 12/16/22 19:34 Pulse Ox 98 12/16/22 19:34 O2 Del Method Room Air 12/16/22 19:34 Data NPU 11/26/22 16:23 11/26/22 16:23 A&P Assessment and plan (1) Chronic schizophrenia: (2) Drug-induced psychotic disorder: (3) Post-traumatic stress disorder, chronic: (4) Methamphetamine dependence: (5) Depression, unspecified: Plan This is a 32-year-old white female with schizophrenia admitted with disorganized thinking and disorganized behavior unable to maintain safety while residing in an inpatient substance abuse treatment center. 1. ?Encourage individual, group and milieu therapy. 2. Recommend sober living treatment at the highest level of care to which the patient is willing to commit. 3. Continue q-15 minute checks for safety.? 4. Haldol 5mg bid, lamotrigine 25mg bid, increase Lamictal to 50 mg p.o. twice daily 12/17/2022, lexapro 10mg daily, Invega IM 234mg q 3 weeks given 11/30/22. Heather booker reported concern with Suboxone as a part of her treatment plan. Started naltrexone 50 mg p.o. daily. 5. continue Seroquel 150mg po qhs. 6. Patient placed on 21-day hold 12/07/2022. Involuntary Hold Information 96 Hour Hold: 96 Hour Involuntary Admission: Yes 96 Hour Hold Ending Date: 12/02/22 96 Hour Hold Ending Time: 15:55 Attestations NPU Medical Necessity Statement*: Inpatient hospitalization is medically necessary and deemed to be the ?clinically appropriate intervention ?at this time.? We will monitor/initiate medications and make changes as indicated.??She remains on a hold at this time a nd will require continued intervention. Her likely length of stay is 7-10 days. Coding Level of Care Code Acute Code for g Fwd Diagnoses Chronic schizophrenia F20.9 Drug-induced psychotic disorder F19.959 Post-traumatic stress disorder, chronic F43.12 Methamphetamine dependence F15.20 Depression, unspecified F32.A
[2022-12-17 14:00] VITALS: BP 139/81; PULSE 80; RESP 16; TEMP 36.9; O2SAT 94
[2022-12-17] MEDS: nicotine 2 mg Gum BUCCAL (18:01)
[2022-12-17 20:05] VITALS: BP 114/75; PULSE 77; RESP 16; TEMP 36.4; O2SAT 96
[2022-12-17] MEDS: quetiapine 300 mg Tablet 150 MG PO (20:12)
[2022-12-17] MEDS: lamoTRIgine 25 mg Tablet 50 MG PO (20:12)
[2022-12-18 06:00] VITALS: BP 129/73; PULSE 81; RESP 16; O2SAT 93
[2022-12-18] MEDS: haloperidol 5 mg Tablet PO ×2 (08:22→20:05)
[2022-12-18] MEDS: escitalopram 10 mg Tablet PO (08:22)
[2022-12-18] MEDS: naltrexone hcl 50 mg Tablet PO (08:22)
[2022-12-18] MEDS: lamoTRIgine 25 mg Tablet 50 MG PO ×2 (08:22→20:05)
[2022-12-18] MEDS: gabapentin 300 mg Capsule PO ×2 (08:23→20:05)
--- NOTE | 2022-12-18 09:40 | W.PM.NPUPNS ---
Subjective NPU Subjective: Patient presented today reporting that she is feeling fine. She was once again found in her room and continues to be fairly isolative in her room in general. She denied any issues with the increase in her Lamictal 50 mg p.o. twice daily and we discussed the risk for Graves-Harmeet syndrome and to be cautious for any new rashes. Otherwise she denied any concerns. We discussed Dr. Willis returning tomorrow and that he will continue the process of working with heather booker for her ultimate guardianship and placement. Mental Status Exam MSE Comments: This is an obese versus morbidly obese white female in hospital scrubs with poor grooming but adequate eye contact. She was malodorous and less unkempt. No abnormal movements except for mild psychomotor agitation. She continued to have her marching in place she was moving her mouth up and down making almost smacking sound. Cooperative with exam in mild distress. Her speech was monotone with mostly normal rate and volume. Mood described as fine, affect odd. Her thought process was concrete and nonlinear and she struggled to answer questions appropriately. Thought content: Patient denies suicidal or homicidal ideation, there were no delusions reported but paranoia and bizarre delusions/beliefs noted, she denied auditory or visual hallucinations but concerns about hallucinations exist. Attention and concentration are limited and memory appears unreliable but none were formally tested. Her insight is poor. Her judgment is poor. Her impulse control appeared impaired. Intellectual ability appears limited. Vitals/I&O/Wt Last Vital Signs Temp 97.5 F L 12/17/22 20:05 Pulse 81 12/18/22 06:00 Resp 16 12/18/22 06:00 BP 129/73 12/18/22 06:00 Pulse Ox 93 12/18/22 06:00 O2 Del Method Room Air 12/17/22 20:05 Data NPU 11/26/22 16:23 11/26/22 16:23 A&P Assessment and plan (1) Chronic schizophrenia: (2) Drug-induced psychotic disorder: (3) Post-traumatic stress disorder, chronic: (4) Methamphetamine dependence: (5) Depression, unspecified: Plan This is a 32-year-old white female with schizophrenia admitted with disorganized thinking and disorganized behavior unable to maintain safety while residing in an inpatient substance abuse treatment center. 1. ?Encourage individual, group and milieu therapy. 2. Recommend sober living treatment at the highest level of care to which the patient is willing to commit. 3. Continue q-15 minute checks for safety.? 4. Haldol 5mg bid, lamotrigine 25mg bid, increased Lamictal to 50 mg p.o. twice daily 12/17/2022, lexapro 10mg daily, Invega IM 234mg q 3 weeks given 11/30/22. Heather booker reported concern with Suboxone as a part of her treatment plan. Started naltrexone 50 mg p.o. daily. 5. continue Seroquel 150mg po qhs. 6. Patient placed on 21-day hold 12/07/2022. Involuntary Hold Information 96 Hour Hold: 96 Hour Involuntary Admission: Yes 96 Hour Hold Ending Date: 12/02/22 96 Hour Hold Ending Time: 15:55 Attestations NPU Medical Necessity Statement*: Inpatient hospitalization is medically necessary and deemed to be the ?clinically appropriate intervention ?at this time.? We will monitor/initiate medications and make changes as indicated.??She remains on a hold at this time and will require continued intervention. Her likely length of stay is 7-10 days. Coding Level of Care Code Acute Code for g Fwd Diagnoses Chronic schizophrenia F20.9 Drug-induced psychotic disorder F19.959 Post-traumatic stress disorder, chronic F43.12 Methamphetamine dependence F15.20 Depression, unspecified F32.A
[2022-12-18] MEDS: ibuprofen 600 mg Tablet PO (12:27)
[2022-12-18 13:04] VITALS: BP 116/79; PULSE 91; RESP 15; TEMP 37; O2SAT 96
[2022-12-18] MEDS: nicotine 4 mg lozenge MUCOUS MEM (15:43)
--- NOTE | 2022-12-18 16:28 | PC.NURSE ---
Outside Pt went outside in closed courtyard with group.
[2022-12-18] MEDS: diphenhydrAMINE 50 mg Capsule PO (17:47)
[2022-12-18 20:01] VITALS: BP 130/88; PULSE 96; RESP 16; TEMP 36.6; O2SAT 97
[2022-12-18] MEDS: quetiapine 300 mg Tablet 150 MG PO (20:05)
[2022-12-19 06:00] VITALS: RESP 16
--- NOTE | 2022-12-19 06:25 | PC.NURSE ---
Pt refused vital signs. Respiration Rate 16.
[2022-12-19] MEDS: gabapentin 300 mg Capsule PO ×2 (08:34→20:05)
[2022-12-19] MEDS: lamoTRIgine 25 mg Tablet 50 MG PO ×2 (08:34→20:05)
[2022-12-19] MEDS: haloperidol 5 mg Tablet PO ×2 (08:34→20:05)
[2022-12-19] MEDS: escitalopram 10 mg Tablet PO (08:34)
[2022-12-19] MEDS: naltrexone hcl 50 mg Tablet PO (08:34)
--- NOTE | 2022-12-19 13:45 | W.PM.NPUPNS ---
Subjective NPU Subjective: The patient is a 32-year-old white female with psychosis admitted with a significant history of polysubstance abuse. The patient continued to minimize having any problems here. She had remained isolative while tending poorly to her activities of daily living. She continues to show little goal-directed activity. She had been compliant with taking medications. She continued to report having cravings for methamphetamine. The patient had reported no plan to return to [facility] when she leaves here. The patient was informed that she may require some guardianship and she had rejected this as an option currently. Mental Status Exam MSE Comments: This is an obese versus morbidly obese white female in hospital scrubs with poor grooming and fleeting eye contact. She was malodorous and less unkempt. No abnormal movements except for mild psychomotor agitation. There was no evidence of any abnormal involuntary motor movements. She was partially cooperative during the exam and appeared in mild to moderate distress. Her speech was monotone with mostly normal rate and volume. Mood described as fine, Her affect was odd and subdued. Her thought process was concrete and nonlinear and she struggled to answer questions appropriately. Thought content: Patient denies suicidal or homicidal ideation, there were no overt delusions noted but paranoia and bizarre thinking was appreciated. She denied auditory or visual hallucinations but did appear at times to be responding to internal stimuli. Attention and concentration are limited and memory appears unreliable but none were formally tested. Her insight is poor. Her judgment is poor. Her impulse control appeared impaired. Intellectual ability appears limited. Vitals/I&O/Wt Last Vital Signs Temp 97.8 F 12/18/22 20:01 Pulse 96 12/18/22 20:01 Resp 16 12/19/22 06:00 BP 130/88 12/18/22 20:01 Pulse Ox 97 12/18/22 20:01 O2 Del Method Room Air 12/18/22 20:01 Weight last 48 hrs Weight 129.047 kg Data NPU 11/26/22 16:23 11/26/22 16:23 A&P Assessment and plan (1) Chronic schizophrenia: (2) Drug-induced psychotic disorder: (3) Post-traumatic stress disorder, chronic: (4) Methamphetamine dependence: (5) Depression, unspecified: Plan This is a 32-year-old white female with schizophrenia admitted with disorganized thinking and disorganized behavior unable to maintain safety while residing in an inpatient substance abuse treatment center. 1. ?Encourage individual, group and milieu therapy. 2. Recommend sober living treatment at the highest level of care to which the patient is willing to commit. 3. Continue q-15 minute checks for safety.? 4. Haldol 5mg bid, lamotrigine 25mg bid, increased Lamictal to 50 mg p.o. twice daily 12/17/2022, lexapro 10mg daily, Invega IM 234mg q 3 weeks given 11/30/22. Heather booker reported concern with Suboxone as a part of her treatment plan. Started naltrexone 50 mg p.o. daily. 5. increase Seroquel 200mg po qhs to target psychosis. Invega sustenna due 12/21/22. 6. Patient placed on 21-day hold 12/07/2022. Involuntary Hold Information 96 Hour Hold: 96 Hour Involuntary Admission: Yes 96 Hour Hold Ending Date: 12/02/22 96 Hour Hold Ending Time: 15:55 Attestations NPU Medical Necessity Statement*: Inpatient hospitalization is medically necessary and deemed to be the ?clinically appropriate intervention ?at this time.? We will monitor/initiate medications and make changes as indicated.??She remains on a hold at this time and will require continued intervention. Her likely length of stay is 7-10 days. Coding Level of Care Code Acute Code for [facility] Fwd Diagnoses Chronic schizophrenia F20.9 Drug-induced psychotic disorder F19.959 Post-traumatic stress disorder, chronic F43.12 Methamphetamine dependence F15.20 Depression, unspecified F32.A
[2022-12-19 14:00] VITALS: BP 113/76; PULSE 84; RESP 16; TEMP 36.8; O2SAT 99
[2022-12-19 19:48] VITALS: BP 134/85; PULSE 107; RESP 18; TEMP 36.5; O2SAT 98
[2022-12-19] MEDS: quetiapine 300 mg Tablet 150 MG PO (20:05)
[2022-12-19] MEDS: diphenhydrAMINE 50 mg Capsule PO (20:05)
[2022-12-20 06:00] VITALS: BP 88/54; PULSE 78; RESP 16; O2SAT 96
[2022-12-20] MEDS: gabapentin 300 mg Capsule PO ×2 (09:21→20:16)
[2022-12-20] MEDS: lamoTRIgine 25 mg Tablet 50 MG PO ×2 (09:21→20:16)
[2022-12-20] MEDS: escitalopram 10 mg Tablet PO (09:21)
[2022-12-20] MEDS: haloperidol 5 mg Tablet PO ×2 (09:21→20:16)
[2022-12-20] MEDS: naltrexone hcl 50 mg Tablet PO (09:21)
[2022-12-20 14:00] VITALS: BP 105/69; PULSE 86; RESP 16; TEMP 36.6; O2SAT 95
[2022-12-20 16:08] LABS: Basophils # 0.1 10^3/uL (0.0-0.1); Basophils % 0.7 %; Eosinophils # 0.2 10^3/uL (0.0-0.8); Eosinophils % 2.4 %; Hematocrit 41.5 % (36-47); Lymphocytes # 2.8 10^3/uL (0.8-4.8); Lymphocytes % 36.5 %; Mean Corpuscular HGB Conc 34.2 g/dL (30-55); Mean Corpuscular Hemoglobin 30.7 pg (27-33); Mean Corpuscular Volume 89.8 fl (85-98); Mean Platelet Volume 9.2 fL (7.4-10.4); Monocytes # 0.6 10^3/uL (0.2-0.9); Monocytes % 8.1 %; Neutrophils # 3.93 10^3/uL (1.8-7.7); Neutrophils % 51.4 %; Nucleated Red Blood Cells % 0 %; Platelet Count 245 10^3/cmm (157-399); Red Blood Count 4.62 10^6/uL (3.85-5.65); Red Cell Distribution Width 11.9 % (12.1-15.1); White Blood Count 7.64 10^3/uL (3.29-11.43)
--- NOTE | 2022-12-20 16:28 | P.NPUPN_ITS ---
Subjective NPU Subjective: The patient is a 32-year-old white female with psychosis admitted with a significant history of polysubstance abuse. The patient continued to isolate herself on the milieu. She had continued to appear to show a lack of motivation in regards to completing her activities of daily living. She had reported that she did not know where or what she would do after she left the hospital. She had reported some cravings for methamphetamine. She had continued when awake to engage in bizarre movements with her hand. She had continued to minimize hearing voices but remained distracted and was minimally engaged with other peers. She had reported continued to require supervision with the patient being informed that she would likely require additional support in order to live outside of the hospital. Mental Status Exam MSE Comments: This is an obese versus morbidly obese white female in hospital scrubs with poor hygiene and no eye contact. She was malodorous and less unkempt. No abnormal movements except for mild psychomotor agitation. There was no evidence of any abnormal involuntary motor movements. She was minimally cooperative during the exam and appeared in mild to moderate distress. Her speech was monotone with mostly normal volume but diminished productivity. There was increased speech latency. Mood described as okay. Her affect was odd and subdued. Her thought process was concrete and nonlinear and she struggled to answer questions appropriately. Thought content: Patient denies suicidal or homicidal ideation, there were no overt delusions noted but significant poverty of content. She denied auditory or visual hallucinations but did appear at times to be respo nding to internal stimuli. Attention and concentration are limited and memory appears unreliable but none were formally tested. Her insight is poor. Her judgment is poor. Her impulse control appeared impaired. Intellectual ability appears limited. Vitals/I&O/Wt Last Vital Signs Temp 98 F 12/20/22 14:00 Pulse 86 12/20/22 14:00 Resp 16 12/20/22 14:00 BP 105/69 12/20/22 14:00 Pulse Ox 95 12/20/22 14:00 O2 Del Method Room Air 12/20/22 14:00 Weight last 48 hrs Weight 129.047 kg Data NPU 12/20/22 15:59 11/26/22 16:23 A&P Assessment and plan (1) Chronic schizophrenia: (2) Drug-induced psychotic disorder: (3) Post-traumatic stress disorder, chronic: (4) Methamphetamine dependence: (5) Depression, unspecified: Plan This is a 32-year-old white female with schizophrenia admitted with disorganized thinking and disorganized behavior unable to maintain safety while residing in an inpatient substance abuse treatment center. 1. ?Encourage individual, group and milieu therapy. 2. Recommend sober living treatment at the highest level of care to which the patient is willing to commit. 3. Continue q-15 minute checks for safety.? 4. Decrease Haldol to 5mg at night. Check CBC as patient may be a candidate fo r Clozaril therapy. It appears unlikely at this time that the patient is going to be able to live anywhere outside of a locked facility with supervision. Guardianship appears likely at this time. Continue lamictal at 50 mg p.o. twice daily. Continue lexapro 10mg daily, Invega IM 234mg q 3 weeks given 11/30/22. Continue naltrexone 50 mg p.o. daily. 5. Continue Seroquel 200mg po qhs to target psychosis. 6. Patient placed on 21-day hold 12/07/2022. Involuntary Hold Information 96 Hour Hold: 96 Hour Involuntary Admission: Yes 96 Hour Hold Ending Date: 12/02/22 96 Hour Hold Ending Time: 15:55 Attestations NPU Medical Necessity Statement*: Inpatient hospitalization is medically necessary and deemed to be the ?clinically appropriate intervention ?at this time.? We will monitor/initiate medications and make changes as indicated.??She remains on a hold at this time and will require continued intervention. Her likely length of stay is 5-7 days. Coding Level of Care Code Acute Code for [facility] Diagnoses Chronic schizophrenia F20.9 Drug-induced psychotic disorder F19.959 Post-traumatic stress disorder, chronic F43.12 Methamphetamine dependence F15.20 Depression, unspecified F32.A
[2022-12-20 20:08] VITALS: BP 115/74; PULSE 61; RESP 15; TEMP 36.6; O2SAT 93
[2022-12-20] MEDS: quetiapine 100 mg Tablet 200 MG PO (20:16)
[2022-12-20] MEDS: diphenhydrAMINE 50 mg Capsule PO (20:16)
[2022-12-21 06:00] VITALS: BP 96/67; PULSE 85; RESP 17; O2SAT 95
[2022-12-21] MEDS: lamoTRIgine 25 mg Tablet 50 MG PO ×2 (08:32→19:50)
[2022-12-21] MEDS: escitalopram 10 mg Tablet PO (08:32)
[2022-12-21] MEDS: naltrexone hcl 50 mg Tablet PO (08:32)
[2022-12-21] MEDS: gabapentin 300 mg Capsule PO ×2 (10:35→19:49)
--- NOTE | 2022-12-21 11:54 | PC.NURSE ---
RECEIVED NEW ORDERS FROM DR. HE TO COLLECT CBC WITH AUTO DIFF TO POSSIBLY START CLOZARIL THERAPY. ORDERS PLACED. PT EDUCATED AND PT VERBALIZED UNDERSTANDING.
[2022-12-21 12:39] LABS: Basophils # 0.1 10^3/uL (0.0-0.1); Basophils % 0.6 %; Eosinophils # 0.2 10^3/uL (0.0-0.8); Eosinophils % 2.3 %; Hematocrit 44.3 % (36-47); Lymphocytes # 2.9 10^3/uL (0.8-4.8); Lymphocytes % 33.6 %; Mean Corpuscular HGB Conc 34.1 g/dL (30-55); Mean Corpuscular Hemoglobin 30.9 pg (27-33); Mean Corpuscular Volume 90.6 fl (85-98); Mean Platelet Volume 9.1 fL (7.4-10.4); Monocytes # 0.6 10^3/uL (0.2-0.9); Monocytes % 6.8 %; Neutrophils # 4.77 10^3/uL (1.8-7.7); Neutrophils % 55.6 %; Nucleated Red Blood Cells % 0 %; Platelet Count 247 10^3/cmm (157-399); Red Blood Count 4.89 10^6/uL (3.85-5.65); Red Cell Distribution Width 11.9 % (12.1-15.1); White Blood Count 8.57 10^3/uL (3.29-11.43)
[2022-12-21 14:00] VITALS: BP 113/68; PULSE 105; RESP 16; TEMP 36.6; O2SAT 96
--- NOTE | 2022-12-21 17:11 | P.NPUPN_ITS ---
Subjective NPU Subjective: The patient is a 32-year-old white female with psychosis admitted with a significant history of polysubstance abuse. The patient continued to isolate herself on the milieu. She appeared unmotivated and was not caring for her activities of daily living with significant prompting required for showering. Patient stated that everything was fine . She was unable to provide any further information regarding how she felt. Staff notes the patient had slept well. She had not elaborated in any fashion regarding how she had come here in the hospital or if she was having any problems at all. She was unable to provide any clear idea as to where she was at this time. She had minimized a [facility] history of substance abuse despite the overwhelming evidence suggesting that she had been using illicit drugs in the past. Mental Status Exam MSE Comments: This is an obese versus morbidly obese white female in hospital scrubs with poor hygiene and no eye contact while lying in bed. She was malodorous and unkempt. No abnormal movements except for signficant psychomotor retardation. There was no evidence of any abnormal involuntary motor movements. She was minimally cooperative during the exam. There was signficant evidence of apathy and lack of any goal directed behavior. Her speech was monotone with paucity of speech and truncated responses. There was increased speech latency. Mood described as okay. Her affect was odd and subdued and mood incongruent. Her thought process was concrete and nonlinear and she struggled to answer questions appropriately. Thought content: Patient denies suicidal or homicidal ideation, there were no overt delusions noted but significant poverty of content. She denied auditory or visual hallucinations but did appear at times to be respondi ng to internal stimuli. Attention and concentration are limited and memory appears unreliable but none were formally tested. Her insight is impaired. Her judgment is poor. Her impulse control appeared impaired. Intellectual ability appears limited. Vitals/I&O/Wt Last Vital Signs Temp 97.9 F 12/21/22 14:00 Pulse 105 H 12/21/22 14:00 Resp 16 12/21/22 14:00 BP 113/68 12/21/22 14:00 Pulse Ox 96 12/21/22 14:00 O2 Del Method Room Air 12/21/22 14:00 Data NPU 12/21/22 12:10 11/26/22 16:23 A&P Assessment and plan (1) Chronic schizophrenia: (2) Drug-induced psychotic disorder: (3) Post-traumatic stress disorder, chronic: (4) Methamphetamine dependence: (5) Depression, unspecified: Plan This is a 32-year-old white female with schizophrenia admitted with disorganized thinking and disorganized behavior unable to maintain safety while residing in an inpatient substance abuse treatment center. 1. ?Encourage individual, group and milieu therapy. 2. Recommend sober living treatment at the highest level of care to which the patient is willing to commit. 3. Continue q-15 minute checks for safety.? 4. ANC within normal limits, will begin Clozaril 25mg bid, will not restart IM invega as there does not appear to be any evidence of its benefits for managing psychosis despite receiving 234mg IM every 3 weeks. I am simplyifying her medication regimen and will taper Haldol as well. 5. Continue Seroquel 200mg po qhs to target psychosis taken concurrently with clozaril 6. Patient placed on 21-day hold 12/07/2022. Involuntary Hold Information 96 Hour Hold: 96 Hour Involuntary Admission: Yes 96 Hour Hold Ending Date: 12/02/22 96 Hour Hold Ending Time: 15:55 Attestations NPU Medical Necessity Statement*: Inpatient hospitalization is medically necessary and deemed to be the ?clinically appropriate intervention ?at this time.? We will monitor/initiate medications and make changes as indicated.??She remains on a hold at this time and will require continued intervention. Her likely length of stay is 10-15 days. Guardianship is being pursued. Coding Level of Care Code Acute Code for [facility] Diagnoses Chronic schizophrenia F20.9 Drug-induced psychotic disorder F19.959 Post-traumatic stress disorder, chronic F43.12 Methamphetamine dependence F15.20 Depression, unspecified F32.A
[2022-12-21] MEDS: cloZAPine 25 mg Tablet PO (17:55)
[2022-12-21] MEDS: diphenhydrAMINE 50 mg Capsule PO (19:49)
[2022-12-21] MEDS: quetiapine 100 mg Tablet 200 MG PO (19:50)
[2022-12-21] MEDS: haloperidol 1 mg Tablet 3 MG PO (19:50)
[2022-12-21 20:23] VITALS: BP 94/59; PULSE 94; RESP 17; TEMP 36.7; O2SAT 94
[2022-12-22 06:00] VITALS: BP 98/67; PULSE 92; RESP 18; TEMP 36.6; O2SAT 94
[2022-12-22] MEDS: escitalopram 10 mg Tablet PO (08:53)
[2022-12-22] MEDS: lamoTRIgine 25 mg Tablet 50 MG PO ×2 (08:53→20:37)
[2022-12-22] MEDS: cloZAPine 25 mg Tablet PO ×2 (08:53→18:08)
[2022-12-22] MEDS: gabapentin 300 mg Capsule PO ×2 (08:53→20:37)
[2022-12-22] MEDS: naltrexone hcl 50 mg Tablet PO (08:53)
[2022-12-22 14:00] VITALS: BP 114/76; PULSE 92; RESP 14; TEMP 36.9; O2SAT 95
--- NOTE | 2022-12-22 15:07 | W.PM.NPUPNS ---
Subjective NPU Subjective: The patient is a 32-year-old white female with psychosis admitted with a significant history of polysubstance abuse. The patient had minimal interaction with staff today. She had spent most of her day in her bedroom. She appeared disinterested in conversation today. She reported that everything was okay. She had reported adequate sleep. She continued to struggle with maintaining appropriate activities of daily living with significant prompting required for the patient to shower or even brush her teeth. Mental Status Exam MSE Comments: This is an obese white female in hospital scrubs with poor hygiene and no eye contact while lying in bed. She was malodorous and unkempt. No abnormal involuntary motor movements except for signficant psychomotor retardation. She was minimally cooperative during the exam. There was signficant evidence of apathy and lack of any goal directed behavior. Her speech was monotone with paucity of speech and truncated responses. There was increased speech latency. Mood described as allright. Her affect was odd and subdued and mood incongruent. Her thought process was concrete and nonlinear and she struggled to answer questions appropriately. Thought content: Patient denies suicidal or homicidal ideation, there were no overt delusions noted but significant poverty of content. She denied auditory or visual hallucinations but did appear at times to be responding to internal stimuli. Attention and concentration are limited and memory appears unreliable but none were formally tested. Her insight is impaired. Her judgment is poor. Her impulse control appeared impaired. Intellectual ability appears limited. Vitals/I&O/Wt Last Vital Signs Temp 97.9 F 12/22/22 06:00 Pulse 92 12/22/22 06:00 Resp 18 12/22/22 06:00 BP 98/67 12/22/22 06:00 Pulse Ox 94 12/22/22 06:00 O2 Del Method Room Air 12/22/22 06:00 Data NPU 12/21/22 12:10 11/26/22 16:23 A&P Assessment and plan (1) Chronic schizophrenia: (2) Drug-induced psychotic disorder: (3) Post-traumatic stress disorder, chronic: (4) Methamphetamine dependence: (5) Depression, unspecified: Plan This is a 32-year-old white female with schizophrenia admitted with disorganized thinking and disorganized behavior unable to maintain safety while residing in an inpatient substance abuse treatment center. 1. ?Encourage individual, group and milieu therapy. 2. Recommend sober living treatment at the highest level of care to which the patient is willing to commit. 3. Continue q-15 minute checks for safety.? 4. ANC within normal limits, continue Clozaril 25mg bid with increase by 25mg per day over next few weeks., will not restart IM invega as there does not appear to be any evidence of its benefits for managing psychosis despite receiving 234mg IM every 3 weeks. Discontinue Haldol, discontinue Naltrexone. 5. Continue Seroquel 200mg po qhs to target psychosis taken concurrently with clozaril 6. Patient placed on 21-day hold 12/07/2022. Guardianship likely. Involuntary Hold Information 96 Hour Hold: 96 Hour Involuntary Admission: Yes 96 Hour Hold Ending Date: 12/02/22 96 Hour Hold Ending Time: 15:55 Attestations NPU Medical Necessity Statement*: Inpatient hospitalization is medically necessary and deemed to be the ?clinically appropriate intervention ?at this time.? We will monitor/initiate medications and make changes as indicated.??She remains on a hold at this time and will require continued intervention. Her likely length of stay is 10-15 days. Guardianship is being pursued. Coding Level of Care Code Acute Code for g Fwd Diagnoses Chronic schizophrenia F20.9 Drug-induced psychotic disorder F19.959 Post-traumatic stress disorder, chronic F43.12 Methamphetamine dependence F15.20 Depression, unspecified F32.A
[2022-12-22 20:01] VITALS: BP 109/75; PULSE 112; RESP 20; TEMP 36.9; O2SAT 96
[2022-12-22] MEDS: quetiapine 100 mg Tablet 200 MG PO (20:37)
[2022-12-23 06:00] VITALS: BP 117/80; PULSE 85; RESP 14; TEMP 36.6; O2SAT 97
[2022-12-23] MEDS: cloZAPine 25 mg Tablet PO (08:37)
[2022-12-23] MEDS: gabapentin 300 mg Capsule PO ×2 (08:37→19:41)
[2022-12-23] MEDS: escitalopram 10 mg Tablet PO (08:37)
[2022-12-23] MEDS: lamoTRIgine 25 mg Tablet 50 MG PO ×2 (08:37→19:40)
[2022-12-23 14:00] VITALS: BP 97/61; PULSE 95; RESP 15; TEMP 36.8; O2SAT 95
--- NOTE | 2022-12-23 16:21 | P.NPUPN_ITS ---
Subjective NPU Subjective: The patient is a 32-year-old white female with psychosis admitted with a significant history of polysubstance abuse. The patient appeared isolative on the milieu. She had asked that she be placed on Suboxone to help with her cravings for methamphetamine. Patient had minimized any hallucinations at this time. She appeared somewhat confused and continued to make odd movements on the unit that appeared to be voluntary. She continued to engage in completion of ADLs only with prompting. She had come out of her room to eat but did not attend groups. She reported no side effects from her Clozaril at this time. The patient again was unable to describe why or how she had come to be here in the hospital. Mental Status Exam MSE Comments: This is an obese white female in hospital scrubs with poor hygiene and improved eye contact while lying in bed. She was malodorous and unkempt. No abnormal involuntary motor movements except for signficant psychomotor retardation. She was superficially cooperative during the exam. There was signficant evidence of apathy and lack of any goal directed behavior. Her speech was monotone with paucity of speech with less truncated responses. Mood described as okay. Her affect was odd and subdued and mood incongruent. Her thought process was linear but appeared to derail during the conversation. Thought content: Patient denies suicidal or homicidal ideation, there were no overt delusions noted but significant poverty of content. She denied auditory or visual hallucinations but did appear at times to be responding to internal stimuli. Attention and concentration are limited and memory appears unreliable but none were formally tested. Her insight is impaired. Her judgment is poor. Her impulse control appeared impaired. Intellectual ability appears limited. Vitals/I&O/Wt Last Vital Signs Temp 98.2 F 12/23/22 14:00 Pulse 95 12/23/22 14:00 Resp 15 12/23/22 14:00 BP 97/61 12/23/22 14:00 Pulse Ox 95 12/23/22 14:00 O2 Del Method Room Air 12/23/22 06:00 Data NPU 12/21/22 12:10 11/26/22 16:23 A&P Assessment and plan (1) Chronic schizophrenia: (2) Drug-induced psychotic disorder: (3) Post-traumatic stress disorder, chronic: (4) Methamphetamine dependence: (5) Depression, unspecified: Plan This is a 32-year-old white female with schizophrenia admitted with disorganized thinking and disorganized behavior unable to maintain safety while residing in an inpatient substance abuse treatment center. 1. ?Encourage individual, group and milieu therapy. 2. Recommend sober living treatment at the highest level of care to which the patient is willing to commit. 3. Continue q-15 minute checks for safety.? 4. ANC within normal limits, increase Clozaril 50mg bid. 5. Continue Seroquel 200mg po qhs to target psychosis taken concurrently with clozaril 6. Patient placed on 21-day hold 12/07/2022. Guardianship likely. Involuntary Hold Information 96 Hour Hold: 96 Hour Involuntary Admission: Yes 96 Hour Hold Ending Date: 12/02/22 96 Hour Hold Ending Time: 15:55 Attestations NPU Medical Necessity Statement*: Inpatient hospitalization is medically necessary and deemed to be the ?clinically appropriate intervention ?at this time.? We will monitor/initiate medications and make changes as indicated.??She remains on a hold at this time and will require continued intervention. Her likely length of stay is 10-15 days. Guardianship is being pursued. Coding Level of Care Code Acute Code for [facility] Fwd Diagnoses Chronic schizophrenia F20.9 Drug-induced psychotic disorder F19.959 Post-traumatic stress disorder, chronic F43.12 Methamphetamine dependence F15.20 Depression, unspecified F32.A
[2022-12-23] MEDS: cloZAPine 25 mg Tablet 50 MG PO (17:42)
[2022-12-23] MEDS: quetiapine 100 mg Tablet 200 MG PO (19:40)
[2022-12-23 19:50] VITALS: BP 103/65; PULSE 80; RESP 20; TEMP 37; O2SAT 98
[2022-12-24 06:00] VITALS: RESP 20
--- NOTE | 2022-12-24 06:44 | PC.NURSE ---
Pt refused vitals. resp 14
[2022-12-24] MEDS: lamoTRIgine 25 mg Tablet 50 MG PO ×2 (08:48→19:39)
[2022-12-24] MEDS: escitalopram 10 mg Tablet PO (08:48)
[2022-12-24] MEDS: gabapentin 300 mg Capsule PO ×2 (08:48→19:40)
[2022-12-24] MEDS: cloZAPine 25 mg Tablet 50 MG PO ×2 (08:48→18:08)
[2022-12-24] MEDS: nicotine 4 mg lozenge MUCOUS MEM (09:03)
[2022-12-24 14:00] VITALS: BP 100/59; PULSE 105; RESP 16; TEMP 37.2; O2SAT 95
--- NOTE | 2022-12-24 14:41 | W.PM.NPUPNS ---
Subjective NPU Subjective: The patient is a 32-year-old white female with psychosis admitted with a significant history of polysubstance abuse. Patient had reported history of opiate abuse and requested that she be placed on Suboxone. The patient had appeared less isolative today. She was seen wandering around the unit and was engaged in more conversations both with staff and with peers. She had continued to ask bizarre questions and provided bizarre answers and inappropriate answers to questions as she continued to state that she needed an IV for managing her love of methamphetamines. The patient continued to make unusual movements with his her body while walking around the unit that appeared to be voluntary. She continued to appear perplexed when asked where she had been prior to coming here into the hospital and where she may go when she leaves the hospital. Mental Status Exam MSE Comments: This is an obese white female in hospital scrubs with poor hygiene and improved eye contact while walking on the unit. Her hygiene appeared improved. No abnormal involuntary motor movements except for mild psychomotor slowing. She was superficially cooperative during the exam. There was signficant evidence of apathy and lack of any goal directed behavior. Her speech was monotone with paucity of speech with less truncated responses. Mood described as okay. Her affect was odd with strange smiling noted. Her thought process was linear but appeared to derail during the conversation. Thought content: Patient denies suicidal or homicidal ideation, there were no overt delusions noted but significant poverty of content. She denied auditory or visual hallucinations but did appear at times to be responding to internal stimuli. Attention and concentration are limited and memory appears unreliable but none were formally tested. Her insight is impaired. Her judgment is poor. Her impulse control appeared impaired. Intellectual ability appears limited. Vitals/I&O/Wt Last Vital Signs Temp 98.6 F 12/23/22 19:50 Pulse 80 12/23/22 19:50 Resp 20 H 12/24/22 06:00 BP 103/65 12/23/22 19:50 Pulse Ox 98 12/23/22 19:50 O2 Del Method Room Air 12/23/22 19:50 Data NPU 12/21/22 12:10 11/26/22 16:23 A&P Assessment and plan (1) Chronic schizophrenia: (2) Drug-induced psychotic disorder: (3) Post-traumatic stress disorder, chronic: (4) Methamphetamine dependence: (5) Depression, unspecified: Plan This is a 32-year-old white female with schizophrenia admitted with disorganized thinking and disorganized behavior unable to maintain safety while residing in an inpatient substance abuse treatment center. 1. ?Encourage individual, group and milieu therapy. 2. Recommend sober living treatment at the highest level of care to which the patient is willing to commit. 3. Continue q-15 minute checks for safety.? 4. ANC within normal limits, continue Clozaril 50mg bid. 5. Continue Seroquel 200mg po qhs to target psychosis taken concurrently with clozaril 6. Patient placed on 21-day hold 12/07/2022. Guardianship likely. Involuntary Hold Information 96 Hour Hold: 96 Hour Involuntary Admission: Yes 96 Hour Hold Ending Date: 12/02/22 96 Hour Hold Ending Time: 15:55 Attestations NPU Medical Necessity Statement*: Inpatient hospitalization is medically necessary and deemed to be the ?clinically appropriate intervention ?at this time.? We will monitor/initiate medications and make changes as indicated.??She remains on a hold at this time and will require continued intervention. Her likely length of stay is 10-15 days. Guardianship is being pursued. Coding Level of Care Code Acute Code for [facility] Fwd Diagnoses Chronic schizophrenia F20.9 Drug-induced psychotic disorder F19.959 Post-traumatic stress disorder, chronic F43.12 Methamphetamine dependence F15.20 Depression, unspecified F32.A
[2022-12-24] MEDS: buprenorphine-naloxone 4-1 mg Film 1 EACH SUBLINGUAL (18:08)
[2022-12-24] MEDS: quetiapine 100 mg Tablet 200 MG PO (19:39)
[2022-12-24 19:43] VITALS: BP 115/72; PULSE 108; RESP 16; TEMP 36.9; O2SAT 93
[2022-12-25 06:00] VITALS: BP 100/69; PULSE 102; RESP 16; TEMP 37; O2SAT 93
[2022-12-25] MEDS: gabapentin 300 mg Capsule PO ×2 (10:23→21:14)
[2022-12-25] MEDS: cloZAPine 25 mg Tablet 50 MG PO (10:23)
[2022-12-25] MEDS: lamoTRIgine 25 mg Tablet 50 MG PO ×2 (10:23→21:14)
[2022-12-25] MEDS: escitalopram 10 mg Tablet PO (10:23)
[2022-12-25] MEDS: buprenorphine-naloxone 4-1 mg Film 1 EACH SUBLINGUAL ×2 (10:24→17:27)
[2022-12-25 13:25] VITALS: BP 105/69; PULSE 91; RESP 12; TEMP 36.8; O2SAT 93
--- NOTE | 2022-12-25 14:36 | P.NPUPN_ITS ---
Subjective NPU Subjective: The patient is a 32-year-old white female with psychosis admitted with a significant history of polysubstance abuse. The patient continues to isolate herself on the milieu. She reported no side effects from her medications. She reported difficulties with falling asleep. She reported no side effects from the Suboxone that was started. She continued report cravings for methamphetamines. Patient continued to have periods of pacing in the weems often talking to herself and engaging in unusual physical movements with her hands and feet. She appeared minimally engaged in the milieu with herself or peers. She had continued to require significant prompting to engage in self-care including brushing and showering. Mental Status Exam MSE Comments: This is an obese white female in hospital scrubs with poor hygiene lying in bed appearing disinterested during the interview. Her hygiene appeared poor. No abnormal involuntary motor movements except for mild psychomotor slowing. She was superficially cooperative during the exam. There is continued evidence of apathy and lack of motivation. Her speech was monotone with truncated responses. Mood described as okay. Her affect was subdued. Her thought process was linear but appeared to derail during the conversation. Thought content: Patient denies suicidal or homicidal ideation, there were no overt delusions noted but significant poverty of content. She denied auditory or visual hallucinations but did appear at times to be responding to internal stimuli. Attention and concentration are limited and memory appears unreliable but none were formally tested. Her insight is impaired. Her judgment is poor. Her impulse control appeared impaired. Intellectual ability appears limited. Vitals/I&O/Wt Last Vital Signs Temp 98.3 F 12/25/22 13:25 Pulse 91 12/25/22 13:25 Resp 12 12/25/22 13:25 BP 105/69 12/25/22 13:25 Pulse Ox 93 12/25/22 13:25 O2 Del Method Room Air 12/25/22 13:25 Data NPU 12/21/22 12:10 11/26/22 16:23 A&P Assessment and plan (1) Chronic schizophrenia: (2) Drug-induced psychotic disorder: (3) Post-traumatic stress disorder, chronic: (4) Methamphetamine dependence: (5) Depression, unspecified: Plan This is a 32-year-old white female with schizophrenia admitted with disorganized thinking and disorganized behavior unable to maintain safety while residing in an inpatient substance abuse treatment center. 1. ?Encourage individual, group and milieu therapy. 2. Recommend sober living treatment at the highest level of care to which the patient is willing to commit. 3. Continue q-15 minute checks for safety.? 4. ANC within normal limits, increase Clozaril 75mg bid. 5. Continue Seroquel 200mg po qhs to target psychosis taken concurrently with clozaril 6. Patient placed on 21-day hold 12/07/2022. Guardianship likely. Involuntary Hold Information 96 Hour Hold: 96 Hour Involuntary Admission: Yes 96 Hour Hold Ending Date: 12/02/22 96 Hour Hold Ending Time: 15:55 Attestations NPU Medical Necessity Statement*: Inpatient hospitalization is medically necessary and deemed to be the ?clinically appropriate intervention ?at this time.? We will monitor/initiate medications and make changes as indicated.??She remains on a hold at this time and will require continued intervention. Her likely length of stay is 10-15 days. Guardianship is being pursued. Coding Level of Care Code Acute Code for [facility] Diagnoses Chronic schizophrenia F20.9 Drug-induced psychotic disorder F19.959 Post-traumatic stress disorder, chronic F43.12 Methamphetamine dependence F15.20 Depression, unspecified F32.A
[2022-12-25] MEDS: cloZAPine 25 mg Tablet 75 MG PO (17:27)
[2022-12-25 19:59] VITALS: BP 132/71; PULSE 103; RESP 12; TEMP 37; O2SAT 88
[2022-12-25] MEDS: quetiapine 100 mg Tablet 200 MG PO (21:14)
[2022-12-26 06:00] VITALS: BP 110/76; PULSE 113; RESP 16; TEMP 37.6; O2SAT 99
[2022-12-26] MEDS: buprenorphine-naloxone 4-1 mg Film 1 EACH SUBLINGUAL ×2 (12:11→20:09)
--- NOTE | 2022-12-26 13:52 | P.NPUPN_ITS ---
Subjective NPU Subjective: The patient is a 32-year-old white female with psychosis admitted with a significant history of polysubstance abuse. The patient continued to struggle with self-care. She had been spending much of the day lying in bed. She had been minimally interactive with other peers. She had reported that she was feeling less tired. She reported no current problems from her medication regimen. She continued to require prompting for managing routine ADLs. Mental Status Exam MSE Comments: This is an obese white female in hospital scrubs with poor hygiene lying in bed appearing disinterested during the interview. Her hygiene appeared poor. No abnormal involuntary motor movements except for mild psychomotor slowing. She was uncooperative during the exam answering questions with minimal use of words if at all. There is continued evidence of apathy and lack of motivation. Her speech was monotone with truncated responses. Mood endorsed as ok. Her affect was subdued and mood congruent. Fall Her thought process was linear but appeared to derail during the conversation. Thought content: Patient denies suicidal or homicidal ideation, there were no overt delusions noted but significant poverty of content. She denied auditory or visual hallucinations but did appear at times to be responding to internal stimuli. Attention and concentration are limited and memory appears unreliable but none were formally tested. Her insight is impaired. Her judgment is poor. Her impulse control appeared impaired. Intellectual ability appears commensurate with mild cognitive impairment. Vitals/I&O/Wt Last Vital Signs Temp 99.7 F H 12/26/22 06:00 Pulse 113 H 12/26/22 06:00 Resp 16 12/26/22 06:00 BP 110/76 12/26/22 06:00 Pulse Ox 99 12/26/22 06:00 O2 Del Method Room Air 12/26/22 06:00 Weight last 48 hrs Weight 129.274 kg Data NPU 12/21/22 12:10 11/26/22 16:23 A&P Assessment and plan (1) Chronic schizophrenia: (2) Drug-induced psychotic disorder: (3) Post-traumatic stress disorder, chronic: (4) Methamphetamine dependence: (5) Depression, unspecified: Plan This is a 32-year-old white female with schizophrenia admitted with disorganized thinking and disorganized behavior unable to maintain safety while residing in an inpatient substance abuse treatment center. 1. ?Encourage individual, group and milieu therapy. 2. Recommend sober living treatment at the highest level of care to which the patient is willing to commit. 3. Continue q-15 minute checks for safety.? 4. ANC (next due 12/28/22) within normal limits, increase Clozaril 75mg bid. 5. Continue Seroquel 200mg po qhs to target psychosis taken concurrently with clozaril 6. Patient placed on 21-day hold 12/07/2022. Guardianship likely. Involuntary Hold Information 96 Hour Hold: 96 Hour Involuntary Admission: Yes 96 Hour Hold Ending Date: 12/02/22 96 Hour Hold Ending Time: 15:55 Attestations NPU Medical Necessity Statement*: Inpatient hospitalization is medically necessary and deemed to be the ?clinically appropriate intervention ?at this time.? We will monitor/initiate m edications and make changes as indicated.??She remains on a hold at this time and will require continued intervention. Her likely length of stay is 10-15 days. Guardianship is being pursued. Coding Level of Care Code Acute Code for [facility] Fwd Diagnoses Chronic schizophrenia F20.9 Drug-induced psychotic disorder F19.959 Post-traumatic stress disorder, chronic F43.12 Methamphetamine dependence F15.20 Depression, unspecified F32.A
[2022-12-26 14:00] VITALS: BP 121/62; PULSE 98; RESP 16; TEMP 36.8; O2SAT 90
[2022-12-26] MEDS: quetiapine 100 mg Tablet 150 MG PO (20:09)
[2022-12-26] MEDS: lamoTRIgine 25 mg Tablet 50 MG PO (20:09)
[2022-12-26] MEDS: gabapentin 300 mg Capsule PO (20:11)
[2022-12-26] MEDS: cloZAPine 25 mg Tablet 75 MG PO (20:11)
[2022-12-26 20:46] VITALS: BP 101/73; PULSE 109; RESP 16; TEMP 36.3; O2SAT 91
[2022-12-27 06:00] VITALS: RESP 16
[2022-12-27] MEDS: buprenorphine-naloxone 4-1 mg Film 1 EACH SUBLINGUAL ×2 (09:29→17:57)
[2022-12-27] MEDS: cloZAPine 25 mg Tablet 75 MG PO (09:31)
[2022-12-27] MEDS: gabapentin 300 mg Capsule PO (09:31)
[2022-12-27] MEDS: lamoTRIgine 25 mg Tablet 50 MG PO (09:31)
[2022-12-27] MEDS: escitalopram 10 mg Tablet PO (09:31)
[2022-12-27 13:49] VITALS: BP 107/71; PULSE 84; RESP 16; TEMP 36.6; O2SAT 96
--- NOTE | 2022-12-27 15:29 | W.PM.NPUPNS ---
Subjective NPU Subjective: The patient is a 32-year-old white female with psychosis admitted with a significant history of polysubstance abuse. The patient remained isolative on the milieu. She was seen lying in bed in minimally engaged in conversation today. She had been eating and per staff the patient was sleeping throughout the night. The patient reported that her mood was fine . She reported no side effects from her medication regimen. She continued to struggle with attending to routine activities of daily living. Mental Status Exam MSE Comments: This is an obese white female in hospital scrubs with poor hygiene lying in bed appearing disinterested during the interview. No abnormal involuntary motor movements except for prominent psychomotor slowing. She was uncooperative during the exam answering questions with minimal use of words if at all. There is continued evidence of apathy and lack of motivation. Her speech was monotone with truncated responses. Mood endorsed as fine. Her affect was odd and subdued. Her thought process was linear but appeared to derail during the conversation. Thought content: Patient denies suicidal or homicidal ideation, there were no overt delusions noted but significant poverty of content. She denied auditory or visual hallucinations but did appear at times to be responding to internal stimuli. Attention and concentration are limited and memory appears unreliable but none were formally tested. Her insight is impaired. Her judgment is poor. Her impulse control appeared impaired. Intellectual ability appears commensurate with mild cognitive impairment. Vitals/I&O/Wt Last Vital Signs Temp 98 F 12/27/22 13:49 Pulse 84 12/27/22 13:49 Resp 16 12/27/22 13:49 BP 107/71 12/27/22 13:49 Pulse Ox 96 12/27/22 13:49 O2 Del Method Room Air 12/27/22 13:49 Weight last 48 hrs Weight 129.274 kg Data NPU 12/21/22 12:10 11/26/22 16:23 A&P Assessment and plan (1) Chronic schizophrenia: (2) Drug-induced psychotic disorder: (3) Post-traumatic stress disorder, chronic: (4) Methamphetamine dependence: (5) Depression, unspecified: Plan This is a 32-year-old white female with schizophrenia admitted with disorganized thinking and disorganized behavior unable to maintain safety while residing in an inpatient substance abuse treatment center. 1. ?Encourage individual, group and milieu therapy. 2. Recommend sober living treatment at the highest level of care to which the patient is willing to commit. 3. Continue q-15 minute checks for safety.? 4. ANC (next due 12/28/22) within normal limits, increase Clozaril 100mg bid. 5. Reduce Seroquel to 100mg po qhs to target psychosis taken concurrently with clozaril 6. Patient placed on 21-day hold 12/07/2022. Guardianship likely. Involuntary Hold Information 96 Hour Hold: 96 Hour Involuntary Admission: Yes 96 Hour Hold Ending Date: 12/02/22 96 Hour Hold Ending Time: 15:55 Attestations NPU Medical Necessity Statement*: Inpatient hospitalization is medically necessary and deemed to be the ?clinically appropriate intervention ?at this time.? We will monitor/initiate medications and make changes as indicated.??She remains on a hold at this time and will require continued intervention. Her likely length of stay is 10-15 days. Guardianship is being pursued. Coding Level of Care Code Acute Code for [facility] Fwd Diagnoses Chronic schizophrenia F20.9 Drug-induced psychotic disorder F19.959 Post-traumatic stress disorder, chronic F43.12 Methamphetamine dependence F15.20 Depression, unspecified F32.A
[2022-12-27] MEDS: cloZAPine 100 mg Tablet PO (17:57)
--- NOTE | 2022-12-27 18:03 | PC.NURSE ---
PT UP AT NURSES STATION MUMBLING, SAYING RANDOM NUMBERS, HAVING TROUBLE KEEPING EYES OPEN. LEANING HEAD AGAINST GLASS. PT TURNED AWAY FROM NURSES WALKED AWAY TO ROOM.
[2022-12-27 20:44] VITALS: BP 130/84; PULSE 109; RESP 15; TEMP 38.3; O2SAT 88
[2022-12-27 20:56] LABS: SARS Covid-2 Antigen Negative (Negative)
[2022-12-27 20:58] LABS: Glucose Point of Care 113 mg/dL (70-110)
--- NOTE | 2022-12-27 21:24 | PC.NURSE ---
PT WITH FEVER OF 100.9 COVID TEST WAS NEGATIVE. NEW ORDERS RECEIVED TO COLLECT RAPID A&B FLU SWAB. PT EDUCATED ON TEST. VERBALIZES UNDERSTANDING.
[2022-12-27 22:13] LABS: Influenza A by IFA Negative (Negative); Influenza B by IFA Negative (Negative)
[2022-12-28] VITALS (73 sets, daily range): BP systolic 86–178; BP diastolic 57–114; PULSE 101–154; RESP 10–38; TEMP 37.6–38.6; O2SAT 83–100
--- NOTE | 2022-12-28 01:03 | XRR_ITS ---
PROCEDURE INFORMATION: Exam: XR Chest Exam date and time: 12/28/2022 1:17 AM Age: 32 years old Clinical indication: Patient HX: Fever. Unresponsive. ; Additional info: Fever, evlauate for pneumonia TECHNIQUE: Imaging protocol: Radiologic exam of the chest. Views: 1 view. COMPARISON: No relevant prior studies available. FINDINGS: Lungs: No focal consolidation. Pleural spaces: Unremarkable. No pleural effusion. No pneumothorax. Heart/Mediastinum: Unremarkable. No cardiomegaly. Bones/joints: Unremarkable. XR/XR chest 1V portable [id number] IMPRESSION: No focal consolidation.
--- NOTE | 2022-12-28 01:07 | CTR_ITS ---
PROCEDURE INFORMATION: Exam: CT Head Without Contrast Exam date and time: 12/28/2022 1:31 AM Age: 32 years old Clinical indication: Altered mental status/memory loss and fever; Patient HX: Unresponsiveness with fever. ; Additional info: AMS TECHNIQUE: Imaging protocol: Computed tomography of the head without contrast. Radiation optimization: All CT scans at this facility use at least one of these dose optimization techniques: automated exposure control; mA and/or kV adjustment per patient size (includes targeted exams where dose is matched to clinical indication); or iterative reconstruction. REPORTING DATA: Count of CT and Cardiac NM exams in prior 12 months: This patient has received 0 known CTs and 0 known cardiac nuclear medicine studies in the 12 months prior to the current study. COMPARISON: No relevant prior studies available. RADIATION DOSE METRICS: Total DLP (mGy-cm): 1039.98 FINDINGS: Brain: Normal. No hemorrhage. Unremarkable white matter. No mass effect. Cerebral ventricles: No ventriculomegaly. Paranasal sinuses: Visualized sinuses are unremarkable. No fluid levels. Mastoid air cells: Visualized mastoid air cells are well aerated. Bones/joints: Unremarkable. No acute fracture. Soft tissues: Unremarkable. CT/CT head wo con* [id number] IMPRESSION: No acute intracranial abnormality.
--- NOTE | 2022-12-28 01:08 | ECG_ITS ---
[facility] Test Date: 2022-12-28 Pat Name: Diana Clarke Department: Room: [facility] Gender: Female Sr Risk Management Consultant: : 1990 Requested By: Gris Sheehan Order Number: [id number] David MD: Shannon Palomo M.D. Measurements Intervals Homer Rate: 117 P: 72 IA: 147 QRS: 82 QRSD: 109 T: 46 QT: 325 QTc: 454 Interpretive Statements SINUS TACHYCARDIA MODERATE T-WAVE ABNORMALITY, CONSIDER ANTERIOR ISCHEMIA [-0.1+ mV T-WAVE IN V3/V4] No previous ECG available for comparison Electronically Signed On 12-28-2022 8:26:52 CDT by Shannon Palomo M.D. [id number]
[2022-12-28 01:31] LABS: ABG PH Result 7.27 (7.35-7.45); Arterial Blood Gas Hematocrit 43.5 % (37-47); Base Excess ABG 0.4 mmol/L (-2.0-2.0); Blood Gas Allen Test Pos; Blood Gas Sample Site Radial, right; Blood Gas Sample Type Arterial; HCO3 ABG 28.9 mmol/L (22-26); Oxygen Device NC; PO2 ABG 74.5 mmHg (80.0-100.0)
[2022-12-28 01:50] LABS: Basophils % 0.3 %; Nucleated Red Blood Cells % 0 %; Platelet Count 231 10^3/cmm (157-399); Red Cell Distribution Width 11.9 % (12.1-15.1)
[2022-12-28] MEDS: naloxone 0.4 mg/ml SDV IVP (01:53)
[2022-12-28 01:59] LABS: Eosinophils % 0.2 %; Hematocrit 43.6 % (36-47); Lymphocytes # 0.7 10^3/uL (0.8-4.8); Lymphocytes % 5.2 %; Mean Corpuscular HGB Conc 32.8 g/dL (30-55); Mean Corpuscular Volume 94.4 fl (85-98); Mean Platelet Volume 9.9 fL (7.4-10.4); Monocytes # 0.5 10^3/uL (0.2-0.9); Neutrophils # 11.81 10^3/uL (1.8-7.7); Neutrophils % 89.5 %; Red Blood Count 4.62 10^6/uL (3.85-5.65); White Blood Count 13.19 10^3/uL (3.29-11.43)
[2022-12-28] MEDS: ondansetron 2 mg/ML SDV 2 mL 4 MG IVP (01:59)
[2022-12-28] MEDS: piperacillin-tazobactam 3.375 GM in sodium chloride 0.9% (plus) 50 ML IV ×2 (02:10→09:53)
[2022-12-28 02:15] LABS: Troponin(5th) Baseline 45 ng/L (0-10)
[2022-12-28 02:20] LABS: Lactate (Lactic Acid level) 3.7 mmol/L (0.5-2.2)
[2022-12-28 02:25] LABS: Slide Review Slide Review Perform
[2022-12-28 02:26] LABS: Alanine Aminotransferase 18 U/L (0-33); Alkaline Phosphatase 92 U/L (35-105); Aspartate Amino Transferase 19 U/L (0-32); Blood Urea Nitrogen 11 mg/dL (6-20); Calcium 8.3 mg/dL (8.5-10.5); Carbon Dioxide 24 mmol/L (22-29); Chloride 101 mmol/L (98-107); Globulin 2.5 g/dL (1.3-4.6); Glomerular Filtration Rate 64.3 mL/min (90-130); Glucose 243 mg/dL (65-115); Osmolality Calculated 295 mOsm/kg (285-295); Sodium 139 mmol/L (136-145); Thyroid Stimulating Hormone 1.27 uIU/mL (0.27-4.20); Total Bilirubin 0.2 mg/dL (0.15-1.2); Total Protein 6.5 g/dL (6.6-8.7)
--- NOTE | 2022-12-28 02:26 | PC.NURSE ---
PT WAS OBSERVED BY PATIENT FINANCIAL SERVICES SPECIALIST AT 0030 TO HAVE WHITE FOAMY LIQUID COMING FROM MOUTH AND NOSE. PATIENT FINANCIAL SERVICES SPECIALIST NOTIFIED ADV[employer]ED MANUFACTURING VICE PRESIDENT WHO NOTIFIED THIS RN. ADVANCED MANUFACTURING VICE PRESIDENT STERNAL RUBBED PT WITH NO RESPONSE. THIS RN CALLED A RAPID RESPONSE. PT WAS PREVIOUSLY TESTED FOR COVID AND INFLUENZA A & B EARLIER THIS SHIFT AND ALL WERE NEGATIVE. TESTING WAS COMPLETED DUE TO PT HAVING A TEMP OF 110.9 AT 1999. PT GLUCOSE WAS TESTED AT 2053 AND IT WAS 113. PT REFUSED 2100 MEDICATIONS AND IBUPROFEN FOR TEMP. AT 0000 TEMP WENT DOWN TO 98.1 WITHOUT PHARMACEUTICAL INTERVENTION. O2 SATS WERE 37%, HR 127 AND BP 127/85 WHEN RAPID RESPONSE TEAM ARRIVED. CODE CART WAS OBTAINED AND PT WAS SUCTIONED, WHITE FROTHY SPUTUM NOTED. PT WAS VENTILATED WITH AMBU-BAG AND 100% O2, O2 SATS KEY TO 100%. PT CONTINUED TO BE UNRESPONSIVE. DR. CARLISLE AT BEDSIDE. IV PLACED IN THE RIGHT AC. PT WAS PLACED ON GURNEY TO TRANSPORT TO ICU ONCE DIRECTOR OF EMPLOYER SERVICES WAS PLACED FOR TRANSPORT. VERBAL ORDERS RECEIVED FROM DR. CARLISLE TO ADMINISTER 0.4 MG OF NARCAN. THIS RN ADMINISTERED 0.4 MG OF NARCAN IM TO LEFT DELTOID ORDERED AT APPROXIMATELY 0057. RAPID RESPONSE TEAM THEN TRANSPORTED PT TO ICU, DURING TRANSPORT PT WAS OBSERVED SITTING STRAIGHT UP ON GURNEY AND STATED WHERE ARE WE GOING. THEN LAID BACK DOWN. PT LEFT NPU AT APPROXIMATELY 0058. DR. WIGGINS NOTIFIED AT 0100 VIA PHONE, Mitchel WAGGONER DIRECTOR NOTIFIED AT 0115. PT CURRENTLY IN ICU.
[2022-12-28 02:27] LABS: Bilirubin Urine Neg (Negative); Blood Urine 2+ (Negative); Glucose Urine UA 2+ (Normal); Ketones Urine 1+ (Negative); Nitrate Urine Negative (Negative); Protein Urine Neg (Negative); Urine Appearance Hazy (CLEAR); Urine Color Yellow (Yellow); pH Urine 5 (5-7)
[2022-12-28 02:28] LABS: Add Urine Microscopic? YES; Leukocyte Esterase Urine Negative (Negative); RBC Urine 0-4 /hpf (0-2); Squamous Epithelial Cell Urine 0-4 /hpf (0-5); Urobilinogen Urine Neg (Negative)
[2022-12-28 02:29] LABS: Add Urine Culture? No; Bacteria Urine 1+ /hpf; Mucus Urine 3+ /hpf
[2022-12-28 02:31] LABS: Anion Gap 18.2 (5-19); Potassium 4.2 mmol/L (3.5-5.1)
--- NOTE | 2022-12-28 02:32 | PC.NURSE ---
bp this nurse changed pt bp cuff to the lower arm for a better read between 0215&0230.
--- NOTE | 2022-12-28 02:37 | PC.NURSE ---
ORDERS RECEIVED FOR HOSPITALIST CONSULT, DR. CASTRO ORDERED BY DR. HE DUE TO RAPID RESPONSE.
--- NOTE | 2022-12-28 03:08 | ECG_ITS ---
[facility] Test Date: 2022-12-28 Pat Name: Diana Clarke Department: Room: ICU01 Gender: Female Administrative Office Manager: : 1990 Requested By: Gris Sheehan Order Number: [id number] David MD: Shannon Palomo M.D. Measurements Intervals [place] Rate: 113 P: 71 OK: 143 QRS: 80 QRSD: 112 T: 43 QT: 332 QTc: 457 Interpretive Statements SINUS TACHYCARDIA INCOMPLETE RIGHT BUNDLE BRANCH BLOCK [90+ ms QRS DURATION, TERMINAL R IN V1/V2, 40+ ms S IN I/aVL/V4/V5/V6] MODERATE T-WAVE ABNORMALITY, CONSIDER ANTERIOR ISCHEMIA [-0.1+ mV T-WAVE IN V3/V4] Compared to ECG 12/28/2022 02:01:22 Incomplete right bundle-branch block now present T-wave abnormality still present Possible ischemia still present Electronically Signed On 12-28-2022 8:27:23 CDT by Shannon Palomo M.D. [id number]
[2022-12-28 03:25] LABS: ABG PH Result 7.29 (7.35-7.45); Arterial Blood Gas Hematocrit 43.5 % (37-47); Base Excess ABG 3.2 mmol/L (-2.0-2.0); Blood Gas Allen Test Pos; Blood Gas Sample Site Radial, right; Blood Gas Sample Type Arterial; HCO3 ABG 31.8 mmol/L (22-26); Oxygen Device BIPAP; PO2 ABG 51.8 mmHg (80.0-100.0)
[2022-12-28 03:27] LABS: ABG PCO2 65.9 mmHg (35-45)
[2022-12-28 03:27] LABS: Troponin 5 2HR 96.51 ng/L (0-10)
[2022-12-28 03:32] LABS: Troponin 5 2HR Delta 51.51 ABS# (0-10)
--- NOTE | 2022-12-28 04:00 | PC.NURSE ---
Bowie Verbal order received from Dr. Sheehan to insert bowie catheter.
--- NOTE | 2022-12-28 04:50 | PC.NURSE ---
pt care this nurse responded to rapid response from icu to npu. this nurse came with pt and has been 1:1 since d/t 96 hr hold.
--- NOTE | 2022-12-28 05:08 | CT_ITS ---
WS: [id number] CTA CHEST WITH ABDOMEN AND PELVIS TECHNIQUE: Contrast enhanced CTA of the chest, with abdomen, and pelvis with coronal and sagittal ref ormatted images and additional MIP Images. CLINICAL INFORMATION: evaluate for PE COMPARISON: None. DLP: 1919.[address] scans at [facility] use at least one of these dose optimization techniques: automated e xposure control; mA and/or kV adjustment per patient size (includes targeted exams where dose is matc hed to clinical indication); or iterative reconstruction. FINDINGS: Endotracheal tube with tip above the shefali. Proximal main pulmonary arteries are normal. Normal segm ental and subsegmental pulmonary arteries. No evidence of pulmonary embolus. Extensive pneumomediastinum and pneumopericardium. Small pneumothorax LEFT lower lobe layering anter iorly. Tiny peripheral RIGHT anterior pneumothorax. Subcutaneous emphysema in the chest wall and ante rior chest wall soft tissues. Enteric tube with tip in the stomach. Few patchy upper lobe and perihil ar infiltrates. Compressive atelectasis in the lung bases with air bronchograms. Diffuse fatty filtration of the liver. Hepatomegaly. Normal spleen. Enteric tube with tip in the stom ach. Normal EG junction. Normal portal vein and splenic vein. Normal pancreatic parenchymal enhanceme nt. Normal caliber abdominal aorta. Celiac and SMA are patent. Adrenal glands are normal. Marshall catheter. Sigmoid diverticulosis. Adrenal glands are normal. Normal renal parenchymal enhanceme nt. No hydronephrosis. IMPRESSION: 1. Diffuse extensive pneumomediastinum with pneumopericardium described above. 2. Small layering LEFT anterior pneumothorax. Tiny peripheral RIGHT pneumothorax. 3. Perihilar and RIGHT upper lobe patchy infiltrates with compressive atelectasis in the lung bases with air bronchograms. 4. Endotracheal tube with tip above the shefali. 5. Enteric tube with tip in the stomach. 6. No evidence of pulmonary embolus. 7. No acute findings in the abdomen or pelvis. Message LEFT for Dr Preet CACERES at 12/28/2022 1:15 PM.
[2022-12-28] MEDS: acetaminophen 650 mg Supp PR (05:17)
[2022-12-28] MEDS: enoxaparin 120 mg/0.8 mL Syringe SUBCUT (05:17)
[2022-12-28 05:18] LABS: ABG PCO2 58.2 mmHg (35-45); ABG PH Result 7.34 (7.35-7.45); Arterial Blood Gas Hematocrit 43.4 % (37-47); Base Excess ABG 3.5 mmol/L (-2.0-2.0); Blood Gas Sample Site Brachial, left; Blood Gas Sample Type Arterial; Oxygen Device BIPAP; PO2 ABG 76.7 mmHg (80.0-100.0)
--- NOTE | 2022-12-28 05:23 | P.HP_ITS ---
Providers/Chief Complaint Admitting Physician: Prabhjot Willis MD Chief Complaint: 96 hr hold-delusions, bizarre behavior History of Present Illness Diana Clarke is a 32 year old female with psychosis and a significant history of polysubstance abuse who has been admitted to the MPU on a 21-day hold due to her psychosis. She has been undergoing treatment for schizophrenia in the MPU so far. Reportedly patient was not feeling well today though details are not exactly known. At some point this evening she developed a fever of 100.5F. On nursing rounds at 12:35 PM patient was found in her room to be unresponsive. Rapid response was initiated. When patient was first found she was reportedly apneic, appeared blue and had an SPO2 of 37% per nursing report. She was also drowsy and did not wake up to verbal or painful stimulus. Fingerstick was at 131. By the time I reached at bedside for assessment, patient Had been suctioned and was being ventilated via bag and mask, her saturation was now up to 94% on room air. She was drowsy, did not wake up to verbal or painful stimulus. Blood pressure was 120/75 mmHg. Heart rate of 120, sinus tachycardia on bedside monitor, SPO2 of 94% on room air after having received bag and mask ventilation. She was brought to the ICU where ABG was completed that showed evidence of hypoxic hypercapnic respiratory failure. It is unclear if patient has a past history of COPD. Reportedly she did not have any respiratory complaints during the course of her stay here. No recent cough chest pain dyspnea palpitations. No known seizure disorder. Review of medications showed that patient has been initiated on Suboxone on December 24, 2022. She received 2 doses of Narcan, 1 administered intramuscularly within the MPU and then 1 administered in the ICU through an IV once IV access was able to be established. She had minimal response to the Narcan. Pupils had always been bilateral equal size and reacting to light. She was able to wake up intermittently and now state her correct name however unable to answer any other questions. She has had no visitors today. All her medications have been administered by nursing staff under supervision. She was not found to have any illicit substances in her room. Stat labs obtained after coming to the ICU showed leukocytosis with WBC of 13. Review of Systems General: Reports: ROS unobtainable due to medical condition and ROS unobtainable due to mental status Medications/Allergies Home Medications Medication Instructions Recorded Confirmed Last Taken Type paliperidone palmitate 234 mg/1.5 234 mg (1.5 mL) IM .Q 3 weeks #1.5 08/25/22 11/26/22 Unknown Rx mL intramuscular syringe (Invega mL Sustenna) escitalopram oxalate 10 mg tablet 10 mg PO DAILY 11/26/22 11/26/22 Unknown History gabapentin 300 mg capsule 300 mg PO BID 11/26/22 11/26/22 Unknown History lamotrigine 25 mg tablet 25 mg PO DAILY 11/26/22 11/26/22 Unknown History paliperidone 6 mg tablet,extended 6 mg PO QAM 11/26/22 11/26/22 Unknown History release 24 hr (Invega) Allergies Allergy/AdvReac Type Severity Reaction Status Date / Time acetaminophen [From Vicodin] Allergy Mild rash Verified 11/15/22 09:46 hydrocodone [From Vicodin] Allergy Mild rash Verified 11/15/22 09:46 shellfish derived Allergy Mild hives Verified 11/15/22 09:46 PFSH Acute PFSH: Medical History Psychiatric care Schizoaffective disorder Surgical History History of left knee surgery Family History Mother Cancer cervical Other Diabetes Hyperlipidemia Hypertension Denies family history of Colon cancer Ovarian cancer Heart disease Breast cancer Uterine cancer Thyroid disease Stroke Vitals/I&O/Wt Last Vital Signs Temp 100.5 F H 12/28/22 05:02 Pulse 113 H 12/28/22 04:30 Resp 16 12/28/22 04:30 BP 120/75 12/28/22 04:30 Pulse Ox 99 12/28/22 04:30 O2 Del Method BiPAP 12/28/22 03:26 FiO2 80 12/28/22 03:35 Weight last 48 hrs Weight 129.274 kg Physical Exam Narrative: General: No acute distress, intermittently wakes up and answers her name, assist with efforts to turn her from side to side. HEENT: PERRLA, pupils bilaterally equal and reactive, pallors not present Chest: Normal vesicular breath sounds, no added sounds, equal good air entry bilaterally CVS: S1-S2 regular, no murmurs, no tachycardia, no gallops, no rubs Abdomen: Soft, nontender, no organomegaly, bowel sounds present Neuro: Unable to perform complete exam. Patient was able to sit up on stretcher while being transported from n.p.o. to ICU, stated her correct name while she was in CAT scan, and the ICU assisting efforts to turn her from side to side. \ Urinary Catheter Management: Marshall: Cath Placed During This Visit: yes Urinary Catheter Date of Insertion: 12/28/22 Urinary Catheter Time of Insertion: 02:25 Data 12/28/22 01:06 12/28/22 01:06 Micro: Microbiology 12/28/22 02:41 Blood Culture - Preliminary Blood SPECIMEN COLLECTED 12/28/22 02:41 Blood Culture - Preliminary Blood SPECIMEN COLLECTED ABG Interpretation 1: 12/28/22 12/28/22 12/28/22 01:25 03:20 05:10 ABG pH 7.27 L 7.29 L 7.34 L ABG pCO2 62.9 H* 65.9 H* 58.2 H ABG pO2 74.5 L 51.8 L 76.7 L ABG HCO3 28.9 H 31.8 H 31.0 H ABG Base Excess 0.4 3.2 H 3.5 H Other data: Radiology Impressions Chest X-Ray 12/28/22 01:03 IMPRESSION: No focal consolidation. Head CT 12/28/22 01:07 IMPRESSION: No acute intracranial abnormality. Laboratory Results WBC 13.19 10^3/uL (3.29-11.43) H 12/28/22 01:06 RBC 4.62 10^6/uL (3.85-5.65) 12/28/22 01:06 Hgb 14.30 g/dL (11.27-16.99) 12/28/22 01:06 Hct 43.6 % (36-47) 12/28/22 01:06 MCV 94.4 fl (85-98) 12/28/22 01:06 MCH 31.0 pg (27-33) 12/28/22 01:06 MCHC 32.8 g/dL (30-55) 12/28/22 01:06 RDW 11.9 % (12.1-15.1) L 12/28/22 01:06 Plt Count 231 10^3/cmm (157-399) 12/28/22 01:06 MPV 9.9 fL (7.4-10.4) 12/28/22 01:06 Neut % (Auto) 89.5 % 12/28/22 01:06 Lymph % (Auto) 5.2 % 12/28/22 01:06 [place] % (Auto) 4.0 % 12/28/22 01:06 Eos % (Auto) 0.2 % 12/28/22 01:06 Baso % (Auto) 0.3 % 12/28/22 01:06 Neut # (Auto) 11.81 10^3/uL (1.8-7.7) H 12/28/22 01:06 Lymph # (Auto) 0.7 10^3/uL (0.8-4.8) L 12/28/22 01:06 [place] # (Auto) 0.5 10^3/uL (0.2-0.9) 12/28/22 01:06 Eos # (Auto) 0.0 10^3/uL (0.0-0.8) 12/28/22 01:06 Baso # (Auto) 0.0 10^3/uL (0.0-0.1) 12/28/22 01:06 Nucleated RBC % (auto) 0 % 12/28/22 01:06 Nucleated RBCs # 0.0 /100WBC 12/28/22 01:06 Specimen Type Arterial 12/28/22 05:10 Sample Site Brachial, left 12/28/22 05:10 ABG pH 7.34 (7.35-7.45) L 12/28/22 05:10 ABG pCO2 58.2 mmHg (35-45) H 12/28/22 05:10 ABG pO2 76.7 mmHg (80.0-100.0) L 12/28/22 05:10 ABG HCO3 31.0 mmol/L (22-26) H 12/28/22 05:10 ABG Base Excess 3.5 mmol/L (-2.0-2.0) H 12/28/22 05:10 Seth Test N/a 12/28/22 05:10 Hematocrit 43.4 % (37-47) 12/28/22 05:10 O2 Delivery Device Bipap 12/28/22 05:10 O2 Liters/Min 3.0 % 12/28/22 01:25 FiO2 80.0 % 12/28/22 05:10 Waste Disposal Leakage Tester ID Alewe 12/28/22 05:10 Sodium 139 mmol/L (136-145) 12/28/22 01:06 Potassium 4.2 mmol/L (3.5-5.1) 12/28/22 01:06 Chloride 101 mmol/L (98-107) 12/28/22 01:06 Carbon Dioxide 24 mmol/L (22-29) 12/28/22 01:06 Anion Gap 18.2 (5-19) 12/28/22 01:06 BUN 11 mg/dL (6-20) 12/28/22 01:06 Creatinine 1.0 mg/dL (0.5-0.9) H 12/28/22 01:06 GFR Calculation 64.3 mL/min (90-130) L 12/28/22 01:06 Glucose 243 mg/dL (65-115) H 12/28/22 01:06 POC Glucose 113 mg/dL (70-110) H 12/27/22 20:54 Calculated Osmolality 295 mOsm/kg (285-295) 12/28/22 01:06 Lactate 3.7 mmol/L (0.5-2.2) H 12/28/22 01:06 Calcium 8.3 mg/dL (8.5-10.5) L 12/28/22 01:06 Total Bilirubin 0.2 mg/dL (0.15-1.2) 12/28/22 01:06 AST 19 U/L (0-32) 12/28/22 01:06 ALT 18 U/L (0-33) 12/28/22 01:06 Alkaline Phosphatase 92 U/L (35-105) 12/28/22 01:06 Troponin T Baseline 45 ng/L (0-10) H 12/28/22 01:06 Troponin T 120 Minute 96.51 ng/L (0-10) H 12/28/22 03:01 Delta Troponin T 51.51 ABS# (0-10) H* 12/28/22 03:01 Total Protein 6.5 g/dL (6.6-8.7) L 12/28/22 01:06 Albumin 4.0 g/dL (3.5-5.2) 12/28/22 01:06 Globulin 2.5 g/dL (1.3-4.6) 12/28/22 01:06 TSH 1.27 uIU/mL (0.27-4.20) 12/28/22 01:06 HCG, Qual Negative (Negative) 11/26/22 17:25 HCG, Qual Negative (Negative) 11/26/22 17:25 Urine Color Yellow (Yellow) 12/28/22 01:22 Urine Appearance Hazy (CLEAR) A 12/28/22 01:22 Urine pH 5 (5-7) 12/28/22 01:22 Ur Specific Mcbee 1.030 (1.005-1.030) 12/28/22 01:22 Urine Protein Neg (Negative) 12/28/22 01:22 Urine Glucose (UA) 2+ (Normal) H 12/28/22 01:22 Urine Ketones 1+ (Negative) H 12/28/22 01:22 Urine Blood 2+ (Negative) H 12/28/22 01:22 Urine Nitrate Negative (Negative) 12/28/22 01:22 Urine Bilirubin Neg (Negative) 12/28/22 01:22 Urine Urobilinogen Neg mg/dL (Negative) 12/28/22 01:22 Ur Leukocyte Esterase Negative (Negative) 12/28/22 01:22 Urine RBC 0-4 /hpf (0-2) H 12/28/22 01:22 Urine WBC None /hpf (0-5) 12/28/22 01:22 Ur Squamous Epith Cells 0-4 /hpf (0-5) H 12/28/22 01:22 Amorphous Sediment Not Reportable 12/28/22 01:22 Urine Bacteria 1+ /hpf (NONE) H 12/28/22 01:22 Hyaline Casts 5-10 /lpf H 12/28/22 01:22 Urine Mucus 3+ /hpf 12/28/22 01:22 Salicylates 0.4 mg/dL (3-10) L 11/26/22 16:23 Urine Opiates Screen Negative ng/mL (Negative) 11/26/22 17:25 Acetaminophen < 5.0 ug/mL (10-30) L 11/26/22 16:23 Ur Barbiturates Screen Negative ng/mL (Negative) 11/26/22 17:25 Ur Phencyclidine Scrn Negative ng/mL (Negative) 11/26/22 17:25 Ur Amphetamines Screen Negative ng/mL (Negative) 11/26/22 17:25 U Benzodiazepines Scrn Negative ng/mL (Negative) 11/26/22 17:25 Urine Cocaine Screen Negative ng/mL (Negative) 11/26/22 17:25 U Marijuana (THC) Screen Negative ng/mL (Negative) 11/26/22 17:25 Ethyl Alcohol < 10 mg/dL (0-10) 11/26/22 16:23 RPR Nonreactive (Nonreactive) 11/30/22 18:18 C.trachomatis RNA (TMA) Not detected (NOT DETECTED) 11/30/22 16:26 Chlamydia/GC Comment See note 11/30/22 16:26 Hepatitis C Antibody Non-reactive (Nonreactive) 11/30/22 18:18 HIV 1&2 Ab & HIV 1 Ag Non-reactive (Non-Reactiv) 11/30/22 18:18 HIV 1&2 Antibody Non-reactive (Non-Reactiv) 11/30/22 18:18 Influenza Type A Ag Negative (Negative) 12/27/22 21:30 Influenza Type B Ag Negative (Negative) 12/27/22 21:30 N.gonorrhoeae RNA (TMA) Not detected (NOT DETECTED) 11/30/22 16:26 SARS-CoV-2 Ag (Rapid) Negative (Negative) 12/27/22 20:25 T. vaginalis Amp RNA Not detected (NOT DETECTED) 11/30/22 16:26 A&P Assessment and plan (1) Acute respiratory failure with hypoxia and hypercapnia: Acute respiratory failure with hypoxia and hypercapnia. ABG with pH 7.27/CO2 62.9/PO2 74.5. Unknown if patient has a past medical history of COPD Started on BiPAP ventilation after moving to the ICU. Initially required bag mask support at the time of rapid response. Serial ABG had shown worsening hypoxia after being on BiPAP for 1 hour. CTA ordered to evaluate for PE. Presumptively started on anticoagulation with Lovenox 1 mg/kg every [address] head obtained negative for any intracranial bleeding. Cause of her sudden respiratory decompensation is not entirely clear. Patient was recently started on Suboxone, possibility of opiate-induced respiratory depression not excluded at this time. She did receive 2 doses of Narcan during the course of her evaluation. She is able to spontaneously support her breathing at this time though still remains drowsy and lethargic. CTA pending as above Troponin series additionally coming back elevated with a delta of 55 at 2 hours. EKG with sinus tachycardia, does not show any acute ST-T wave changes. Echocardiogram ordered to evaluate for possibility of NSTEMI In the interim on Lovenox anticoagulation, started additionally on aspirin 81 mg daily Other differentials include possible unwitnessed seizures, will monitor closely Hold suboxone, gabapentin, benadryl, hydroxyzine , zyprexa and trazodone for now (2) Fever: Fever, leukocytosis, possible underlying infection though unclear source at this time. Chest x-ray taken without any gross consolidation UA with negative nitrate, negative leukocyte esterase, no WBCs unlikely UTI History of polysubstance abuse, unable to verify at this time if she has history of IV drug use. Stat blood cultures taken. check RVP started on piperacillin- tazobatam and vancomycin while undergoing infectious source evaluation (3) Leukocytosis: Source under evaluation (4) Elevated troponin: evaluate fror possible PE vs NSTEMI echocardogram and CTa awaited (5) Altered mental status: may be related to hypercapnea , currently on bipap, reassess mental status once CO2 normalizes CT head without acute intracranial events narcan without improvement in mentation Attestations Medical Necessity Statement*: on 21 day admit , acute respiratory failure Critical Care Time: The high probability of a clinically significant, sudden or life threatening deterioration of the patient's [respiratory, cardiac, neuro] system(s) required my full and direct attention, intervention and personal management. The critical care time is as shown. This time is in addition to time spent performing any reported procedures but includes the following: [x] Data and vital sign review and interpretation [x] Patient assessment, examination and intervention [x] Documentation [x] Medication orders and management Critical Care Time (min): 75 Coding Level of Care Code Critical Care >/= 30 minutes Diagnoses Acute respiratory failure with hypoxia and hypercapnia J96.01; J96.02 Fever R50.9 Leukocytosis D72.829 Elevated troponin R79.89 Altered mental status R41.82
[2022-12-28] MEDS: sodium chloride 0.9% 1,000 ML 100 ML IV (05:51)
[2022-12-28] MEDS: sodium chloride 0.9% 1,000 ML 999 ML IV ×2 (05:51→09:58)
--- NOTE | 2022-12-28 05:53 | PM.CONSULT ---
Providers/Reason For Consult Consulting Physician/Specialty*: marge Sheehan MD / hospitalist Reason for Consult*: respiratory failure Requesting Physician: Prabhjot Willis MD Attending Physician: Prabhjot Willis MD History of Present Illness History of Present Illness Diana Clarke is a 32 year old female with psychosis and a significant history of polysubstance abuse who has been admitted to the [facility] on a 21-day hold due to her psychosis.? She has been undergoing treatment for schizophrenia in the [facility] so far.? Reportedly patient was not feeling well today though details are not exactly known.? At some point this evening she developed a fever of 100.5F.? On nursing rounds at ? 12:35 PM patient was found in her room to be unresponsive.? Rapid response was initiated.? When patient was first found she was reportedly apneic, appeared blue and had an SPO2 of 37% per nursing report.? She was also drowsy and did not wake up to verbal or painful stimulus.? Fingerstick was at 131.? By the time I reached at bedside for assessment, patient Had been suctioned and was being ventilated via bag and mask, her saturation was now up to 94% on room air.? She was drowsy, did not wake up to verbal or painful stimulus.? Blood pressure was 120/75 mmHg.? Heart rate of 120, sinus tachycardia on bedside monitor, SPO2 of 94% on room air after having received bag and mask ventilation. She was brought to the ICU where ABG was completed that showed evidence of hypoxic hypercapnic respiratory failure.? It is unclear if patient has a past history of COPD.? Reportedly she did not have any respiratory complaints during the course of her stay here.? No recent cough chest pain dyspnea palpitations.? No known seizure disorder. Review of medications showed that patient has been initiated on Suboxone on December 24, 2022.? She received 2 doses of Narcan, 1 administered intramuscularly within the [facility] and then 1 administered in the ICU through an IV once IV access was able to be established. She had minimal response to the Narcan.? Pupils had always been bilateral equal size and reacting to light.? She was able to wake up intermittently and now state her correct name however unable to answer any other questions. She has had no visitors today.? All her medications have been administered by nursing staff under supervision.? She was not found to have any illicit substances in her room. Stat labs obtained after coming to the ICU showed leukocytosis with WBC of 13. Review of Systems General: Reports: ROS unobtainable due to mental status Medications/Allergies Home Medications Medication Instructions Recorded Confirmed Last Taken Type paliperidone palmitate 234 mg/1.5 234 mg (1.5 mL) IM .Q 3 weeks #1.5 08/25/22 11/26/22 Unknown Rx mL intramuscular syringe (Invega mL Sustenna) escitalopram oxalate 10 mg tablet 10 mg PO DAILY 11/26/22 11/26/22 Unknown History gabapentin 300 mg capsule 300 mg PO BID 11/26/22 11/26/22 Unknown History lamotrigine 25 mg tablet 25 mg PO DAILY 11/26/22 11/26/22 Unknown History paliperidone 6 mg tablet,extended 6 mg PO QAM 11/26/22 11/26/22 Unknown History release 24 hr (Invega) Allergies Allergy/AdvReac Type Severity Reaction Status Date / Time acetaminophen [From Vicodin] Allergy Mild rash Verified 11/15/22 09:46 hydrocodone [From Vicodin] Allergy Mild rash Verified 11/15/22 09:46 shellfish derived Allergy Mild hives Verified 11/15/22 09:46 Current Medications Generic Name Dose Route Start Last Admin Trade Name Freq PRN Reason Stop Dose Admin Acetaminophen 650 mg 12/28/22 05:06 12/28/22 05:17 Acetaminophen 650 Mg Supp NM 650 mg Q6H PRN Administration FEVER Buprenorphine/Naloxone 1 each 12/24/22 18:00 12/27/22 17:57 Buprenorphine-Naloxone 4-1 Mg Film SUBLINGUAL 1 each BID CARLIN Administration Camphor/Menthol/Phenol 1 applic 11/26/22 17:53 12/05/22 09:42 Blistex Lip Oint 7 Gm Tube TOPICAL 1 applic Q1H PRN Administration DRYNESS Clozapine 100 mg 12/27/22 18:00 12/27/22 17:57 Clozapine 100 Mg Tablet PO 100 mg BID CARLIN Administration Diphenhydramine HCl 50 mg 12/18/22 17:38 12/21/22 19:49 Diphenhydramine 50 Mg Capsule PO 50 mg Q4H PRN Administration AGITATION Enoxaparin Sodium 120 mg 12/28/22 05:15 12/28/22 05:17 Enoxaparin 120 Mg/0.8 Ml Syringe SUBCUT 120 mg Q12H CARLIN Administration Escitalopram Oxalate 10 mg 11/27/22 09:00 12/27/22 09:31 Escitalopram 10 Mg Tablet PO 10 mg DAILY CARLIN Administration Gabapentin 300 mg 12/06/22 21:00 12/27/22 21:01 Gabapentin 300 Mg Capsule PO Not Given CARLIN Hydroxyzine Pamoate 50 mg 11/26/22 17:53 12/08/22 18:41 Hydroxyzine 25 Mg Capsule PO 50 mg Q6H PRN Administration ANXIETY Piperacillin Sod/Tazobactam 50 mls @ 12.5 mls/hr 12/28/22 01:30 12/28/22 02:10 Sod 3.375 gm/ Sodium Chloride IV 12.5 mls/hr Q8H CARLIN Administration Sodium Chloride 1,000 mls @ 100 mls/hr 12/28/22 05:45 12/28/22 05:51 Sodium Chloride 0.9% IV 100 mls/hr .Q10H CARLIN Administration Sodium Chloride 1,000 mls @ 999 mls/hr 12/28/22 05:34 12/28/22 05:51 Sodium Chloride 0.9% IV 12/28/22 06:34 999 mls/hr .Q1H1M ONE Administration Ibuprofen 600 mg 11/26/22 19:25 12/18/22 12:27 Ibuprofen 600 Mg Tablet PO 600 mg Q6H PRN Administration MODERATE PAIN Lamotrigine 50 mg 12/17/22 21:00 12/27/22 21:01 Lamotrigine 25 Mg Tablet PO Not Given [facility] Naloxone HCl 0.4 mg 12/28/22 01:22 12/28/22 01:53 Naloxone 0.4 Mg/Ml Sdv IVP 0.4 mg PRN PRN Administration RESPIRATORY RATE < 8/MIN Nicotine Polacrilex 2 mg 11/26/22 17:53 12/17/22 18:01 Nicotine 2 Mg Gum BUCCAL 2 mg Q2H PRN Administration NICOTINE WITHDRAWAL Nicotine Polacrilex 4 mg 12/10/22 08:12 12/24/22 09:03 Nicotine 4 Mg Lozenge MUCOUS MEM 4 mg Q2H PRN Administration NICOTINE CRAVINGS Olanzapine 5 mg 11/26/22 17:53 12/14/22 18:07 Olanzapine 5 Mg Odt PO 5 mg Q4H PRN Administration Agitation/Psychosis Ondansetron HCl 4 mg 11/26/22 17:53 12/04/22 10:30 Ondansetron 4 Mg Tablet PO 4 mg Q6H PRN Administration NAUSEA AND VOMITING Ondansetron HCl 4 mg 12/28/22 01:07 12/28/22 01:59 Ondansetron 2 Mg/Ml Sdv 2 Ml IVP 4 mg Q8H PRN Administration NAUSEA AND VOMITING Quetiapine Fumarate 100 mg 12/27/22 21:00 12/27/22 21:01 Quetiapine 100 Mg Tablet PO Not Given BEDTIME CARLIN Trazodone HCl 50 mg 11/26/22 17:53 12/14/22 20:56 Trazodone 50 Mg Tablet PO 50 mg BEDTIME PRN Administration SLEEP PFSH Acute PFSH: Medical History Psychiatric care Schizoaffective disorder Surgical History History of left knee surgery Family History Mother Cancer cervical Other Diabetes Hyperlipidemia Hypertension Denies family history of Colon cancer Ovarian cancer Heart disease Breast cancer Uterine cancer Thyroid disease Stroke Vitals/I&O/Wt Last Vital Signs Temp 100.5 F H 12/28/22 05:02 Pulse 113 H 12/28/22 04:30 Resp 16 12/28/22 04:30 BP 120/75 12/28/22 04:30 Pulse Ox 99 12/28/22 04:30 O2 Del Method BiPAP 12/28/22 03:26 FiO2 80 12/28/22 03:35 Weight last 48 hrs Weight 130.453 kg Weight 129.274 kg Physical Exam Narrative: General: No acute distress, intermittently wakes up and answers her name, assist with efforts to turn her from side to side. HEENT: PERRLA, pupils bilaterally equal and reactive, pallors not present Chest: Normal vesicular breath sounds, no added sounds, equal good air entry bilaterally CVS: S1-S2 regular, no murmurs, no tachycardia, no gallops, no rubs Abdomen: Soft, nontender, no organomegaly, bowel sounds present Neuro: Unable to perform complete exam.? Patient was able to sit up on stretcher while being transported from n.p.o. to ICU, stated her correct name while she was in CAT scan, and the ICU assisting efforts to turn her from side to side. Urinary Catheter Management: Marshall: Cath Placed During This Visit: yes Urinary Catheter Date of Insertion: 12/28/22 Urinary Catheter Time of Insertion: 02:25 Data 12/28/22 01:06 12/28/22 01:06 Other Labs: Radiology Impressions Chest X-Ray 12/28/22 01:03 IMPRESSION: No focal consolidation. Head CT 12/28/22 01:07 IMPRESSION: No acute intracranial abnormality. Laboratory Results WBC 13.19 10^3/uL (3.29-11.43) H 12/28/22 01:06 RBC 4.62 10^6/uL (3.85-5.65) 12/28/22 01:06 Hgb 14.30 g/dL (11.27-16.99) 12/28/22 01:06 Hct 43.6 % (36-47) 12/28/22 01:06 MCV 94.4 fl (85-98) 12/28/22 01:06 MCH 31.0 pg (27-33) 12/28/22 01:06 MCHC 32.8 g/dL (30-55) 12/28/22 01:06 RDW 11.9 % (12.1-15.1) L 12/28/22 01:06 Plt Count 231 10^3/cmm (157-399) 12/28/22 01:06 MPV 9.9 fL (7.4-10.4) 12/28/22 01:06 Neut % (Auto) 89.5 % 12/28/22 01:06 Lymph % (Auto) 5.2 % 12/28/22 01:06 Carter % (Auto) 4.0 % 12/28/22 01:06 Eos % (Auto) 0.2 % 12/28/22 01:06 Baso % (Auto) 0.3 % 12/28/22 01:06 Neut # (Auto) 11.81 10^3/uL (1.8-7.7) H 12/28/22 01:06 Lymph # (Auto) 0.7 10^3/uL (0.8-4.8) L 12/28/22 01:06 Carter # (Auto) 0.5 10^3/uL (0.2-0.9) 12/28/22 01:06 Eos # (Auto) 0.0 10^3/uL (0.0-0.8) 12/28/22 01:06 Baso # (Auto) 0.0 10^3/uL (0.0-0.1) 12/28/22 01:06 Nucleated RBC % (auto) 0 % 12/28/22 01:06 Nucleated RBCs # 0.0 /100WBC 12/28/22 01:06 Specimen Type Arterial 12/28/22 05:10 Sample Site Brachial, left 12/28/22 05:10 ABG pH 7.34 (7.35-7.45) L 12/28/22 05:10 ABG pCO2 58.2 mmHg (35-45) H 12/28/22 05:10 ABG pO2 76.7 mmHg (80.0-100.0) L 12/28/22 05:10 ABG HCO3 31.0 mmol/L (22-26) H 12/28/22 05:10 ABG Base Excess 3.5 mmol/L (-2.0-2.0) H 12/28/22 05:10 Seth Test N/a 12/28/22 05:10 Hematocrit 43.4 % (37-47) 12/28/22 05:10 O2 Delivery Device Bipap 12/28/22 05:10 O2 Liters/Min 3.0 % 12/28/22 01:25 FiO2 80.0 % 12/28/22 05:10 Retail Solar Advisor ID Alewe 12/28/22 05:10 Sodium 139 mmol/L (136-145) 12/28/22 01:06 Potassium 4.2 mmol/L (3.5-5.1) 12/28/22 01:06 Chloride 101 mmol/L (98-107) 12/28/22 01:06 Carbon Dioxide 24 mmol/L (22-29) 12/28/22 01:06 Anion Gap 18.2 (5-19) 12/28/22 01:06 BUN 11 mg/dL (6-20) 12/28/22 01:06 Creatinine 1.0 mg/dL (0.5-0.9) H 12/28/22 01:06 GFR Calculation 64.3 mL/min (90-130) L 12/28/22 01:06 Glucose 243 mg/dL (65-115) H 12/28/22 01:06 POC Glucose 113 mg/dL (70-110) H 12/27/22 20:54 Calculated Osmolality 295 mOsm/kg (285-295) 12/28/22 01:06 Lactate 3.7 mmol/L (0.5-2.2) H 12/28/22 01:06 Calcium 8.3 mg/dL (8.5-10.5) L 12/28/22 01:06 Total Bilirubin 0.2 mg/dL (0.15-1.2) 12/28/22 01:06 AST 19 U/L (0-32) 12/28/22 01:06 ALT 18 U/L (0-33) 12/28/22 01:06 Alkaline Phosphatase 92 U/L (35-105) 12/28/22 01:06 Troponin T Baseline 45 ng/L (0-10) H 12/28/22 01:06 Troponin T 120 Minute 96.51 ng/L (0-10) H 12/28/22 03:01 Delta Troponin T 51.51 ABS# (0-10) H* 12/28/22 03:01 Total Protein 6.5 g/dL (6.6-8.7) L 12/28/22 01:06 Albumin 4.0 g/dL (3.5-5.2) 12/28/22 01:06 Globulin 2.5 g/dL (1.3-4.6) 12/28/22 01:06 TSH 1.27 uIU/mL (0.27-4.20) 12/28/22 01:06 HCG, Qual Negative (Negative) 11/26/22 17:25 HCG, Qual Negative (Negative) 11/26/22 17:25 Urine Color Yellow (Yellow) 12/28/22 01:22 Urine Appearance Hazy (CLEAR) A 12/28/22 01:22 Urine pH 5 (5-7) 12/28/22 01:22 Ur Specific [place] 1.030 (1.005-1.030) 12/28/22 01:22 Urine Protein Neg (Negative) 12/28/22 01:22 Urine Glucose (UA) 2+ (Normal) H 12/28/22 01:22 Urine Ketones 1+ (Negative) H 12/28/22 01:22 Urine Blood 2+ (Negative) H 12/28/22 01:22 Urine Nitrate Negative (Negative) 12/28/22 01:22 Urine Bilirubin Neg (Negative) 12/28/22 01:22 Urine Urobilinogen Neg mg/dL (Negative) 12/28/22 01:22 Ur Leukocyte Esterase Negative (Negative) 12/28/22 01:22 Urine RBC 0-4 /hpf (0-2) H 12/28/22 01:22 Urine WBC None /hpf (0-5) 12/28/22 01:22 Ur Squamous Epith Cells 0-4 /hpf (0-5) H 12/28/22 01:22 Amorphous Sediment Not Reportable 12/28/22 01:22 Urine Bacteria 1+ /hpf (NONE) H 12/28/22 01:22 Hyaline Casts 5-10 /lpf H 12/28/22 01:22 Urine Mucus 3+ /hpf 12/28/22 01:22 Salicylates 0.4 mg/dL (3-10) L 11/26/22 16:23 Urine Opiates Screen Negative ng/mL (Negative) 11/26/22 17:25 Acetaminophen < 5.0 ug/mL (10-30) L 11/26/22 16:23 Ur Barbiturates Screen Negative ng/mL (Negative) 11/26/22 17:25 Ur Phencyclidine Scrn Negative ng/mL (Negative) 11/26/22 17:25 Ur Amphetamines Screen Negative ng/mL (Negative) 11/26/22 17:25 U Benzodiazepines Scrn Negative ng/mL (Negative) 11/26/22 17:25 Urine Cocaine Screen Negative ng/mL (Negative) 11/26/22 17:25 U Marijuana (THC) Screen Negative ng/mL (Negative) 11/26/22 17:25 Ethyl Alcohol < 10 mg/dL (0-10) 11/26/22 16:23 RPR Nonreactive (Nonreactive) 11/30/22 18:18 C.trachomatis RNA (TMA) Not detected (NOT DETECTED) 11/30/22 16:26 Chlamydia/GC Comment See note 11/30/22 16:26 Hepatitis C Antibody Non-reactive (Nonreactive) 11/30/22 18:18 HIV 1&2 Ab & HIV 1 Ag Non-reactive (Non-Reactiv) 11/30/22 18:18 HIV 1&2 Antibody Non-reactive (Non-Reactiv) 11/30/22 18:18 Influenza Type A Ag Negative (Negative) 12/27/22 21:30 Influenza Type B Ag Negative (Negative) 12/27/22 21:30 N.gonorrhoeae RNA (TMA) Not detected (NOT DETECTED) 11/30/22 16:26 SARS-CoV-2 Ag (Rapid) Negative (Negative) 12/27/22 20:25 T. vaginalis Amp RNA Not detected (NOT DETECTED) 11/30/22 16:26 Micro: Microbiology 12/28/22 02:41 Blood Culture - Preliminary Blood SPECIMEN COLLECTED 12/28/22 02:41 Blood Culture - Preliminary Blood SPECIMEN COLLECTED ABG Interpretation 1: 12/28/22 12/28/22 12/28/22 01:25 03:20 05:10 ABG pH 7.27 L 7.29 L 7.34 L ABG pCO2 62.9 H* 65.9 H* 58.2 H ABG pO2 74.5 L 51.8 L 76.7 L ABG HCO3 28.9 H 31.8 H 31.0 H ABG Base Excess 0.4 3.2 H 3.5 H A&P Assessment and plan (1) Acute respiratory failure with hypoxia and hypercapnia: (2) Altered mental status: (3) Elevated troponin: (4) Leukocytosis: (5) Fever: Plan 1) Acute respiratory failure with hypoxia and hypercapnia: Acute respiratory failure with hypoxia and hypercapnia. ABG with pH 7.27/CO2 62.9/PO2 74.5.? Unknown if patient has a past medical history of COPD Started on BiPAP ventilation after moving to the ICU. Initially required bag mask support at the time of rapid response. Serial ABG had shown worsening hypoxia after being on BiPAP for 1 hour. CTA ordered to evaluate for PE. Presumptively started on anticoagulation with Lovenox 1 mg/kg every [address] head obtained negative for any intracranial bleeding. Cause of her sudden respiratory decompensation is not entirely clear. Patient was recently started on Suboxone, possibility of opiate-induced respiratory depression not excluded at this time.? She did receive 2 doses of Narcan during the course of her evaluation.? She is able to spontaneously support her breathing at this time though still remains drowsy and lethargic. CTA pending as above Troponin series additionally coming back elevated with a delta of 55 at 2 hours.? EKG with sinus tachycardia, does not show any acute ST-T wave changes. Echocardiogram ordered to evaluate for possibility of NSTEMI In the interim on Lovenox anticoagulation, started additionally on aspirin 81 mg daily Other differentials include possible unwitnessed seizures, will monitor closely Hold suboxone, gabapentin, benadryl, hydroxyzine , zyprexa and trazodone for now (2) Fever: Fever, leukocytosis, possible underlying infection though unclear source at this time. Chest x-ray taken without any gross consolidation UA with negative nitrate, negative leukocyte esterase, no WBCs unlikely UTI History of polysubstance abuse, unable to verify at this time if she has history of IV drug use.? Stat blood cultures taken. check RVP started on piperacillin- tazobatam and vancomycin while undergoing infectious source evaluation (3) Leukocytosis: Source under evaluation (4) Elevated troponin: evaluate fror possible PE vs NSTEMI echocardogram and CTa awaited (5) Altered mental status: may be related to hypercapnea , currently on bipap, reassess mental status once CO2 normalizes CT head without acute intracranial events narcan without improvement in mentation Consult Attestations Medical Necessity Statement: on 21 day admit , acute respiratory failure Critical Care Time: The high probabili ty of a clinically significant, sudd en or life threate pankaj deterioration of the patient's? [respiratory, card iac, neuro]?system (s) required my fu ll and direct atte ntion, interventio n and personal man agement. The criti sai care time is a s shown. This time is in addition to time spent perfor sanna any reported procedures but inc ludes the followin g: [x]?Data and v ital sign review a nd interpretation [x]?Patient assess ment, examination and intervention [ x]?Documentation [ x]?Medication orde rs and management ? Critical Care Time (min): 75 Coding Level of Care Code Critical Care >/= 30 minutes Diagnoses Acute respiratory failure with hypoxia and hypercapnia J96.01; J96.02 Altered mental status R41.82 Elevated troponin R79.89 Leukocytosis D72.829 Fever R50.9
[2022-12-28 06:29] LABS: Adenovirus Not Detected (NOT DETECT); Chlamydia Pneumoniae Not Detected (NOT DETECT); Coronavirus 229E,HKU1,NL63,OC4 Not Detected (NOT DETECT); Human Metapneumovirus Not Detected (NOT DETECT); Human Rhinovirus/Enterovirus Not Detected (NOT DETECT); Influenza A Not Detected (NOT DETECT); Influenza A H1 Not Detected (NOT DETECT); Influenza A H1-2009 Not Detected (NOT DETECT); Influenza A H3 Not Detected (NOT DETECT); Influenza B Not Detected (NOT DETECT); Mycoplasma Pneumoniae Not Detected (NOT DETECT); Parainfluenza Virus Type 1 Not Detected (NOT DETECT); Parainfluenza Virus Type 2 Not Detected (NOT DETECT); Parainfluenza Virus Type 3 Not Detected (NOT DETECT); Parainfluenza Virus Type 4 Not Detected (NOT DETECT); Respiratory Syncytial Virus A Not Detected (NOT DETECT); Respiratory Syncytial Virus B Not Detected (NOT DETECT); SARS-COV-2 Not Detected (NOT DETECT)
--- NOTE | 2022-12-28 06:29 | PC.NURSE ---
pt resp panal this nurse called lab and lab stated that they had to run the test again because it resulted as inconclusive.
--- NOTE | 2022-12-28 06:40 | PC.NURSE ---
pt suctioning this nurse noticed some 'gurgling' suctioned out her mouth. repositioned head. messaged physician.
[2022-12-28] MEDS: vancomycin 1,250 MG/250 ML PIGGYBACK 250 MG IV (06:44)
[2022-12-28 07:18] LABS: Basophils % 0.3 %; Hematocrit 42.9 % (36-47); Lymphocytes # 0.8 10^3/uL (0.8-4.8); Lymphocytes % 6.6 %; Mean Corpuscular HGB Conc 32.4 g/dL (30-55); Mean Corpuscular Volume 95.5 fl (85-98); Monocytes # 0.6 10^3/uL (0.2-0.9); Neutrophils # 9.91 10^3/uL (1.8-7.7); Neutrophils % 87.4 %; Nucleated Red Blood Cells % 0 %; Platelet Count 204 10^3/cmm (157-399); Red Blood Count 4.49 10^6/uL (3.85-5.65); Red Cell Distribution Width 11.9 % (12.1-15.1); White Blood Count 11.34 10^3/uL (3.29-11.43)
[2022-12-28 07:36] LABS: Troponin 5 6HR 73.88 ng/L (0-10)
[2022-12-28 07:37] LABS: ABG PCO2 62.9 mmHg (35-45)
[2022-12-28 07:42] LABS: Troponin 5 6HR Delta 28.88 ng/L (0-12)
[2022-12-28 08:16] LABS: ABG PH Result 7.27 (7.35-7.45); Base Excess ABG 0.3 mmol/L (-2.0-2.0); Blood Gas Allen Test Pos; Blood Gas Operator Identificat CAAK; Blood Gas Sample Site Radial, left; Blood Gas Sample Type Arterial; HCO3 ABG 28.7 mmol/L (22-26); Oxygen Device HAG; PO2 ABG 59.4 mmHg (80.0-100.0)
[2022-12-28 08:17] LABS: ABG PCO2 62.5 mmHg (35-45)
[2022-12-28] MEDS: etomidate 2 mg/mL INJ SDV 10 mL 30 MG IVP (08:43)
[2022-12-28] MEDS: rocuronium 10 mg/mL INJ 5mL 160 MG IVP (08:45)
--- NOTE | 2022-12-28 08:48 | XRR_ITS ---
PROCEDURE INFORMATION: Exam: XR Chest Exam date and time: 12/28/2022 8:55 AM Age: 32 years old Clinical indication: Device placement; Ett placement (vent status); Additional info: Intubation TECHNIQUE: Imaging protocol: Radiologic exam of the chest. Views: 1 view. COMPARISON: CR (CHEST, ) 12/28/2022 1:17 AM FINDINGS: Tubes, catheters and devices: Endotracheal tube tip is at the level of the shefali. Nasogastric tube within the stomach Lungs: Pulmonary vascular congestion/interstitial edema. Pleural spaces: Unremarkable. No pleural effusion. No pneumothorax. Heart/Mediastinum: Unremarkable. No cardiomegaly. Bones/joints: Unremarkable. XR/XR chest 1V portable [id number] IMPRESSION: 1. Endotracheal tube tip is at the level of the shefali. This needs to be pulled back approximately 2 cm. 2. Pulmonary vascular congestion/interstitial edema
--- NOTE | 2022-12-28 09:12 | PM.CCNAC ---
Critical Care Event Note Decision was made to intubate the patient because she was obtunded, was not able to use BiPAP, she had third episode of emesis, she aspirated, she was septic, Postintubation requested CT abdomen pelvis, CTA chest she was given septic bolus was started on antibiotics, cultures have been taken, Overnight events noted Patient was very drowsy and obtunded Was trying to open her eyes to noxious stimuli Morbid obese Signs of fluid overload Bilateral breath sounds with crackles Neuro exam limited She was transition from BiPAP to heated high flow Assessment and plan Acute hypoxia COVID-19 negative Patient aspirated 3 episode of emesis on BiPAP Sepsis: Criteria met with tachypnea tachycardia fever She has been given 1 L bolus I will give her 2 more to make 3 L Blood cultures taken Antibiotics administered Check lactic acid Source seems to be aspiration pneumonia Troponin elevation: Significant delta troponin I will keep her on therapeutic Lovenox until PE ruled out We will follow-up with echo report Respiratory failure requiring mechanical ventilation Secondary to aspiration Hypoxic hypercarbic respiratory failure Wean off sedationIn 24 hours gradually Hold off on feeds N.p.o. DVT prophylaxis covered with therapeutic Lovenox Opiate dependent patient was on Suboxone The high probability of a clinically significant, sudden or life threatening deterioration of the patient's [] system(s) required my full and direct attention, intervention and personal management. The critical care time is as shown. This time is in addition to time spent performing any reported procedures but includes the following: [x] Data and vital sign review and interpretation [x] Patient assessment, examination and intervention [x] Documentation [x] Medication orders and management Critical Care Time Code activated: No Critical Care Time (min): 35 Coding Level of Care Code Acute Code for Chg Beronica
--- NOTE | 2022-12-28 09:25 | PM.MISC ---
Miscellaneous Note Purpose of Documentation: Intubation Note: Called to ICU-1 STAT. Upon arrival, patient being successfully bag-masked and was informed difficult visualization during laryngoscopy with significant secretions. Patient re-positioned further down in bed. Bag masked up to 92% and notified patient had been vomiting as well, significant blood and thick yellow mucus noted in mouth as well as multiple preexisting missing teeth, suctioned quickly. And attempted-video laryngoscopy proved it difficult to manipulate patient's large tongue, but once successfully manipulated, grade I airway obtained. Thick yellow mucus or possibly vomit noted at cords. Placed ETT, cuff inflated, color change noted, b/l breath sounds, and recovery of O2 sat. Instructed patient should have ETT suctioned d/t to possibility of aspiration as ETT suction tubing was not already available at bedside at time of intubation.
[2022-12-28] MEDS: lamoTRIgine 25 mg Tablet 50 MG PO (09:53)
[2022-12-28] MEDS: aspirin 81 mg EC Tablet PO (09:53)
[2022-12-28] MEDS: escitalopram 10 mg Tablet PO (09:53)
[2022-12-28 10:30] LABS: ABG PCO2 52.8 mmHg (35-45); ABG PH Result 7.33 (7.35-7.45); Arterial Blood Gas Hematocrit 42.7 % (37-47); Base Excess ABG 0.8 mmol/L (-2.0-2.0); Blood Gas Allen Test Pos; Blood Gas Operator Identificat CAK; Blood Gas Sample Site Brachial, left; Blood Gas Sample Type Arterial; Blood Gas Tidal Volume 0.45; Carboxyhemoglobin 1.6 %THgb (0.4-20.1); HCO3 ABG 27.8 mmol/L (22-26); Ionized Calcium Level - ABG 1.1 mmol/L (1.1-1.4); Methemoglobin 0.5 % (0.4-1.5); Oxygen Device VENT; PO2 ABG 62.4 mmHg (80.0-100.0); Potassium Level - ABG 3.9 mmol/L (3.5-5.0); Total Hemoglobin 13.9 g/dL (12-16)
--- NOTE | 2022-12-28 10:59 | XR_ITS ---
WS: [id number] CHEST XRAY TECHNIQUE: Portable chest. CLINICAL INFORMATION: Post PICC insertion COMPARISON: 12/28/2022 FINDINGS: LEFT PICC line in good position SVC RA junction. Endotracheal tube with tip above the tavon a. Enteric tube with tip below the diaphragm. Heart: Cardiomegaly. Lungs: Pneumomediastinum and pneumopericardium as previously described on the chest CT. Small LEFT gr eater than RIGHT pneumothorax better visualized on the chest CT. Mild patchy perihilar infiltrates si milar to previous Bones: Osteopenia. IMPRESSION: LEFT PICC line in good position SVC RA junction.
[2022-12-28] MEDS: iohexol 350 mg/mL 500 mL Btl (per mL) IV (11:45)
[2022-12-28] MEDS: propofol 1,000 MG/100 ML INJ 3.97 MG IV (12:12)
--- NOTE | 2022-12-28 12:22 | PM.PN ---
Subjective Subjective: Overnight events noted Patient was intubated today Vitals/I&O/Wt Last Vital Signs Temp 101.4 F H 12/28/22 09:30 Pulse 128 H 12/28/22 11:45 Resp 17 12/28/22 11:42 BP 106/72 12/28/22 11:45 Pulse Ox 98 12/28/22 11:45 O2 Del Method BiPAP 12/28/22 03:26 FiO2 40 12/28/22 11:42 12/27/22 12/28/22 12/28/22 22:59 06:59 14:59 Intake Total 50 50 1253.958 / 1253.958 Balance 50 50 1253.958 / 1253.958 Weight last 48 hrs Weight 132.449 kg Weight 130.453 kg Physical Exam Narrative: Patient was very drowsy and obtunded Was trying to open her eyes to noxious stimuli Morbid obese Signs of fluid overload Bilateral breath sounds with crackles Neuro exam limited She was transition from BiPAP to heated high flow Urinary Catheter Management: Marshall: Cath Placed During This Visit: yes Reason for Continuing Indwelling Catheter: Accurate Measurement of Urinary Output in Critically Ill Patients Urinary Catheter Date of Insertion: 12/28/22 Urinary Catheter Time of Insertion: 02:25 Data 12/28/22 07:07 12/28/22 01:06 Micro: Microbiology 12/28/22 02:41 Blood Culture - Preliminary Blood SPECIMEN COLLECTED 12/28/22 02:41 Blood Culture - Preliminary Blood SPECIMEN COLLECTED A&P Assessment and plan (1) Altered mental status: (2) Acute respiratory failure with hypoxia and hypercapnia: (3) Elevated troponin: (4) Fever: (5) Sepsis: (6) New onset of congestive heart failure: (7) Respiratory failure requiring intubation: (8) Methamphetamine dependence: (9) Chronic schizophrenia: (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: (11) Post-traumatic stress disorder, chronic: (12) Morbid obesity: (13) Difficult intubation: Plan Assessment and plan Acute hypoxia COVID-19 negative Patient aspirated 3 episode of emesis on BiPAP Sepsis: Criteria met with tachypnea tachycardia fever She has been given 1 L bolus I will give her 2 more to make 3 L Blood cultures taken Antibiotics administered Check lactic acid Source seems to be aspiration pneumonia Troponin elevation: Significant delta troponin I will keep her on therapeutic Lovenox until PE ruled out We will follow-up with echo report Respiratory failure requiring mechanical ventilation Secondary to aspiration Hypoxic hypercarbic respiratory failure Wean off sedationIn 24 hours gradually Recurrent nausea vomiting It could be due to use of BiPAP with gastric inflation Requested CT abdomen pelvis without contrast Morbid obesity Difficult intubation Full code Hold off on feeds N.p.o. DVT prophylaxis covered with therapeutic Lovenox Opiate dependent patient was on Suboxone Attestations Medical Necessity Statement*: Continue ICU management Coding Level of Care Code Critical Care >/= 30 minutes Critical care time (in minutes): 35 The high probability of a clinically significant, sudden or life threatening deterioration, as referenced in this documentation, required my full and direct attention, intervention and personal management. The critical care time shown is in addition to time spent performing any reported separately billable procedures and includes the following: [x] Data and vital sign review and interpretation [x] Patient assessment, examination and intervention [x] Medication orders and management [x] Patient/Family updates as able [x] Care Coordination and Documentation. Other Coding Information Focused coding review requested Procedural care (documented in this note), Procedural care (documented in another note), Prolonged care (total time indicated above or notated here), Shared care and Other care Diagnoses Altered mental status R41.82 Acute respiratory failure with hypoxia and hypercapnia J96.01; J96.02 Elevated troponin R79.89 Fever R50.9 Sepsis A41.9 New onset of congestive heart failure I50.9 Respiratory failure requiring intubation J96.90 Methamphetamine dependence F15.20 Chronic schizophrenia F20.9 Drug-induced psychotic disorder F19.959 Post-traumatic stress disorder, chronic F43.12 Morbid obesity E66.01 Difficult intubation T88.4XXA
--- NOTE | 2022-12-28 12:29 | PM.ACPR ---
Acute Procedures Intubation: Time out performed: Yes Sedative: etomidate Mg given: 30 Paralytic: rocuronium Mg given: 160 Laryngoscope: fiber optic video scope Assist device used: fiber optic device ET tube size: 8 Tube secured depth (cm): 24 Tube secured location: teeth Patient tolerated procedure: well and no complications Intubation complications: none and difficult intubation (Anesthesia was called because because of difficult view with laryngoscope)
--- NOTE | 2022-12-28 12:34 | XRR_ITS ---
PROCEDURE INFORMATION: Exam: XR Chest Exam date and time: 12/28/2022 12:37 PM Age: 32 years old Clinical indication: Device placement; Ett placement (vent status); Additional info: Et tube placement TECHNIQUE: Imaging protocol: Radiologic exam of the chest. Views: 1 view. COMPARISON: CR XR chest 1V portable [id number] 12/28/2022 8:55 AM FINDINGS: Tubes, catheters and devices: There is an endotracheal tube with the tip approximately 2.8 cm above the shefali. There is an enteric tube extending down into the stomach and off the image. Lungs: Bilateral lower lobe airspace disease, with possibilities including dependent pulmonary edema, pneumonia, aspiration and/or atelectasis. There is bilateral central pulmonary vascular congestion. Pleural spaces: Small right apical pneumothorax measuring up to approximately 6 mm between the visceral and parietal pleura. Heart/Mediastinum: The cardiac silhouette is not enlarged. There is widening of the mediastinum and pneumomediastinum. Bones/joints: No acute osseous abnormality. XR/XR chest 1V portable [id number] IMPRESSION: 1. Endotracheal tube tip approximately 2.8 cm above the shefali. 2. Pneumomediastinum. 3. Small right apical pneumothorax. 4. Bilateral airspace disease.
[2022-12-28 12:59] LABS: Estmated Average Glucose 94; Hemoglobin A1C 4.9 % (4.0-6.0)
--- NOTE | 2022-12-28 13:00 | PC.NURSE ---
Triple lumen PICC placed to left basilic vein. Referred for PICC placement due to poor access. Pt intubated and sedated. No family or friends listed to contact. Emergent consent obtained per Dr. Oviedo. Left arm assessed with left basilic vein measuring 3.8 mm, straight, and apparent best choice for placement. Using sterile technique and MST, left basilic vein accessed x 1 stick. Mid-arm circumference measured 10 cm from left AC 39 cm. Trimmed cath 51 cm with 0 cm external length noted. CXR shows tip in SVC, cavoatrial junction, in good position for use per radiologist. Line secured with stat-lock. Insertion site covered with Biopatch and TSM. Report given to bedside nurse, Dianelys.
[2022-12-28] MEDS: ipratropium-albuterol 3 mL Neb INHALATION (13:55)
[2022-12-28] MEDS: FUROsemide 10 mg/mL SDV 4mL 40 MG IVP (14:02)
--- NOTE | 2022-12-28 14:09 | XR_ITS ---
WS: [id number] CHEST XRAY TECHNIQUE: Portable chest. CLINICAL INFORMATION: pneumo COMPARISON: None. FINDINGS: Endotracheal tube with tip above the shefali. Enteric tube with tip below the diaphragm. LEF T PICC line with tip in the RIGHT atrium. Heart: Cardiomegaly. Faint pneumopericardium. Lungs: Pneumomediastinum with faint pneumopericardium. No evidence of progression. Mild perihilar inf iltrates and vascular congestion. Improved inspiration. Small LEFT greater than RIGHT pneumothorax be tter visualized on the CT. No evidence of progression. Bones: Osteopenia. IMPRESSION: 1. No evidence of progressed pneumothorax. Small pneumothorax LEFT greater than RIGHT better seen on the recent CT. 2. Stable pneumomediastinum and pneumopericardium. 3. Improved inspiration. 4. No other significant interval changes.
--- NOTE | 2022-12-28 15:40 | PC.NURSE ---
Upon arrival to shift, patient full of secretions, 1:1 sitter alerted nurse to patient vomiting on bipap machine. Bipap removed immediately and suctioned. RT and Dr. Oviedo notified, abg drawn, Decision to intubate made off of abg results. Medications given per Dr. Oviedo and APR, see for administration, rough intubation anesthesia paged overhead, Dr. Dueñas responsded and intubated patient, size 8 ET tube, 22 at lip. Meds running per APR. Recent chest xray, and CT showing bilateral pneumothorax and more, see CT results. No family to update. Emergent case and transfer to [facility] per Dr. Oviedo
--- NOTE | 2022-12-28 16:14 | PC.NURSE ---
Security removed pt personal belonging, money envelope containing IRS check from safe and clothing from unit.pt being transfered to another facility in [facility].
--- NOTE | 2022-12-28 17:17 | PC.NURSE ---
Patient left with air evac to transfer to [facility] at 1700.
--- NOTE | 2022-12-28 17:42 | PM.TDS ---
Transfer Summary Providers Date of Admission: 11/26/22 17:54 Date of Discharge/Transfer: 12/29/22 Attending Provider at Admission: Prabhjot Willis MD Attending Provider at Transfer: Prabhojt Willis MD Transfer Plans: Anticipated date of transfer: 12/29/22. Diagnoses at Discharge Discharge Diagnosis (1) Altered mental status: Status: Acute (2) Acute respiratory failure with hypoxia and hypercapnia: Status: Acute (3) Elevated troponin: Status: Acute (4) Fever: Status: Acute (5) Sepsis: Status: Acute (6) New onset of congestive heart failure: Status: Acute (7) Respiratory failure requiring intubation: Status: Acute (8) Methamphetamine dependence: Status: Acute (9) Chronic schizophrenia: Status: Acute (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: Status: Acute (11) Post-traumatic stress disorder, chronic: Status: Acute (12) Morbid obesity: Status: Acute (13) Difficult intubation: Status: Acute Reason for Visit Reason for Visit 96 hr hold-delusions, bizarre behavior Hospital Course Hospital Course 32-year-old female who spent 30 days in neuro psychiatric unit for her schizophrenia and polysubstance abuse, she was on Suboxone, hospital service was consulted for her acute hypoxia, patient deteriorated on BiPAP experience multiple episodes of emesis on BiPAP decision was made to intubate the patient, considering difficult intubation anesthesia was called, after intubation small right-sided apical pneumothorax 6 mm was noted, pneumomediastinum pneumopericardium and left-sided small pneumothorax identified. PEEP pressure from 10 was decreased to 5, patient was saturating well, she remained hemodynamic stable however considering positive ventilation with underlying pneumothorax and no loader helper being on-call decision was made to transfer her to tertiary level of care at [facility], Dr. Fuentes accepted the patient. Please note we did review her notes and records, there is no family listed to be contacted. It is in the best interest of patient to be evaluated by the loader helper in case she would require a chest tube placement. At this point we are not sure what caused the pneumothorax after intubation, it was rather difficult intubation. Endotracheal tube was readjusted, repeat serial chest x-ray did show improvement of pneumothorax and endotracheal tube placement. Physical Exam Narrative: Patient intubated and sedated On Versed and fentanyl Propofol discontinued Morbidly obese Saturating well on 40% FiO2 Marshall catheter in place OG in place Urinary Catheter Management: Marshall: Cath Placed During This Visit: yes Reason for Continuing Indwelling Catheter: Accurate Measurement of Urinary Output in Critically Ill Patients Urinary Catheter Date of Insertion: 12/28/22 Urinary Catheter Time of Insertion: 02:25 TS Data Studies Completed and Pending Pending at discharge Category Date Time Status Blood Culture Stat Lab 12/28/22 02:41 Results Sputum Culture and Gram Stain Stat Lab 12/28/22 09:20 Results Urine Culture Stat Lab 12/28/22 01:22 Results Completed Studies During Hospitalization Category Date Time Status CT angio chest w abd pel w con Routine Cat Scan 12/28/22 05:[address] head wo con* [id number] Routine Cat Scan 12/28/22 01:07 Completed CXRP [XR chest 1V portable [id number]] Routine Exams 12/28/22 10:59 Completed CXRP [XR chest 1V portable [id number]] Stat Exams 12/28/22 01:03 Completed XR chest 1V portable [id number] Routine Exams 12/28/22 08:48 Completed XR chest 1V portable [id number] Stat Exams 12/28/22 12:34 Completed XR chest 1V portable [id number] Stat Exams 12/28/22 14:09 Completed Laboratory Last Values WBC 11.34 10^3/uL (3.29-11.43) 12/28/22 07:07 RBC 4.49 10^6/uL (3.85-5.65) 12/28/22 07:07 Hgb 13.90 g/dL (11.27-16.99) 12/28/22 07:07 Hct 42.9 % (36-47) 12/28/22 07:07 MCV 95.5 fl (85-98) 12/28/22 07:07 MCH 31.0 pg (27-33) 12/28/22 07:07 MCHC 32.4 g/dL (30-55) 12/28/22 07:07 RDW 11.9 % (12.1-15.1) L 12/28/22 07:07 Plt Count 204 10^3/cmm (157-399) 12/28/22 07:07 MPV 9.0 fL (7.4-10.4) 12/28/22 07:07 Neut % (Auto) 87.4 % 12/28/22 07:07 Lymph % (Auto) 6.6 % 12/28/22 07:07 [place] % (Auto) 5.0 % 12/28/22 07:07 Eos % (Auto) 0.0 % 12/28/22 07:07 Baso % (Auto) 0.3 % 12/28/22 07:07 Neut # (Auto) 9.91 10^3/uL (1.8-7.7) H 12/28/22 07:07 Lymph # (Auto) 0.8 10^3/uL (0.8-4.8) 12/28/22 07:07 [place] # (Auto) 0.6 10^3/uL (0.2-0.9) 12/28/22 07:07 Eos # (Auto) 0.0 10^3/uL (0.0-0.8) 12/28/22 07:07 Baso # (Auto) 0.0 10^3/uL (0.0-0.1) 12/28/22 07:07 Nucleated RBC % (auto) 0 % 12/28/22 07:07 Nucleated RBCs # 0.0 /100WBC 12/28/22 07:07 Specimen Type Cancelled 12/28/22 16:17 Sample Site Cancelled 12/28/22 16:17 O2 Sat Pulse Oximetry Cancelled 12/28/22 16:17 ABG pH Cancelled 12/28/22 16:17 ABG pCO2 Cancelled 12/28/22 16:17 ABG pO2 Cancelled 12/28/22 16:17 ABG HCO3 Cancelled 12/28/22 16:17 ABG O2 Saturation 95.0 12/28/22 10:19 ABG Base Excess Cancelled 12/28/22 16:17 Seth Test Cancelled 12/28/22 16:17 A-a O2 Gradient 21.0 mmHg (5-10) H 12/28/22 10:19 Hematocrit Cancelled 12/28/22 16:17 Hgb O2 Saturation 93.0 % (95-100) L 12/28/22 10:19 Carboxyhemoglobin 1.6 %THgb (0.4-20.1) 12/28/22 10:19 Methemoglobin 0.5 % (0.4-1.5) 12/28/22 10:19 Total Hemoglobin 13.9 g/dL (12-16) 12/28/22 10:19 Sodium 141.0 mmol/L (131-143) 12/28/22 10:19 Potassium 3.9 mmol/L (3.5-5.0) 12/28/22 10:19 Glucose 133.0 mg/dL (70-115) H 12/28/22 10:19 Ionized Calcium 1.1 mmol/L (1.1-1.4) 12/28/22 10:19 Respiration Rate Cancelled 12/28/22 16:17 O2 Delivery Device Cancelled 12/28/22 16:17 O2 Liters/Min Cancelled 12/28/22 16:17 SIMV Cancelled 12/28/22 16:17 Vent Mode Cancelled 12/28/22 16:17 Mechanical Rate Cancelled 12/28/22 16:17 Spontaneous Rate Cancelled 12/28/22 16:17 FiO2 Cancelled 12/28/22 16:17 Tidal Volume Cancelled 12/28/22 16:17 PEEP Cancelled 12/28/22 16:17 Pressure Support Cancelled 12/28/22 16:17 Pressure Control Cancelled 12/28/22 16:17 CPAP Cancelled 12/28/22 16:17 Mode BiPAP Cancelled 12/28/22 16:17 Specimen Drawn By Cancelled 12/28/22 16:17 Passenger Elevator Operator ID Cancelled 12/28/22 16:17 Crit Value Read Back Cancelled 12/28/22 16:17 Blood Gas Notified Time Cancelled 12/28/22 16:17 Sodium 139 mmol/L (136-145) 12/28/22 01:06 Potassium 4.2 mmol/L (3.5-5.1) 12/28/22 01:06 Chloride 101 mmol/L (98-107) 12/28/22 01:06 Carbon Dioxide 24 mmol/L (22-29) 12/28/22 01:06 Anion Gap 18.2 (5-19) 12/28/22 01:06 BUN 11 mg/dL (6-20) 12/28/22 01:06 Creatinine 1.0 mg/dL (0.5-0.9) H 12/28/22 01:06 GFR Calculation 64.3 mL/min (90-130) L 12/28/22 01:06 Glucose 243 mg/dL (65-115) H 12/28/22 01:06 POC Glucose 113 mg/dL (70-110) H 12/27/22 20:54 Estimat Average Glucose 94 12/28/22 07:07 Hemoglobin A1c 4.9 % (4.0-6.0) 12/28/22 07:07 Calculated Osmolality 295 mOsm/kg (285-295) 12/28/22 01:06 Lactic Acid 1.0 mmol/L (0.5-2.2) 12/28/22 13:57 Lactate 1.0 mmol/L (0.5-2.2) 12/28/22 07:07 Calcium 8.3 mg/dL (8.5-10.5) L 12/28/22 01:06 Total Bilirubin 0.2 mg/dL (0.15-1.2) 12/28/22 01:06 AST 19 U/L (0-32) 12/28/22 01:06 ALT 18 U/L (0-33) 12/28/22 01:06 Alkaline Phosphatase 92 U/L (35-105) 12/28/22 01:06 Troponin T Baseline 45 ng/L (0-10) H 12/28/22 01:06 Troponin T 120 Minute 96.51 ng/L (0-10) H 12/28/22 03:01 Delta Troponin T 51.51 ABS# (0-10) H* 12/28/22 03:01 Troponin T Hi Sens 6Hr 73.88 ng/L (0-10) H 12/28/22 07:07 Troponin T Hi Sens 6Hr Delta 28.88 ng/L (0-12) H* 12/28/22 07:07 Total Protein 6.5 g/dL (6.6-8.7) L 12/28/22 01:06 Albumin 4.0 g/dL (3.5-5.2) 12/28/22 01:06 Globulin 2.5 g/dL (1.3-4.6) 12/28/22 01:06 TSH 1.27 uIU/mL (0.27-4.20) 12/28/22 01:06 HCG, Qual Negative (Negative) 11/26/22 17:25 HCG, Qual Negative (Negative) 11/26/22 17:25 Urine Color Yellow (Yellow) 12/28/22 01:22 Urine Appearance Hazy (CLEAR) A 12/28/22 01:22 Urine pH 5 (5-7) 12/28/22 01:22 Ur Specific [place] 1.030 (1.005-1.030) 12/28/22 01:22 Urine Protein Neg (Negative) 12/28/22 01:22 Urine Glucose (UA) 2+ (Normal) H 12/28/22 01:22 Urine Ketones 1+ (Negative) H 12/28/22 01:22 Urine Blood 2+ (Negative) H 12/28/22 01:22 Urine Nitrate Negative (Negative) 12/28/22 01:22 Urine Bilirubin Neg (Negative) 12/28/22 01:22 Urine Urobilinogen Neg mg/dL (Negative) 12/28/22 01:22 Ur Leukocyte Esterase Negative (Negative) 12/28/22 01:22 Urine RBC 0-4 /hpf (0-2) H 12/28/22 01:22 Urine WBC None /hpf (0-5) 12/28/22 01:22 Ur Squamous Epith Cells 0-4 /hpf (0-5) H 12/28/22 01:22 Amorphous Sediment Not Reportable 12/28/22 01:22 Urine Bacteria 1+ /hpf (NONE) H 12/28/22 01:22 Hyaline Casts 5-10 /lpf H 12/28/22 01:22 Urine Mucus 3+ /hpf 12/28/22 01:22 Nasal Influ A H1 2008 PCR Not detected (NOT DETECT) 12/28/22 02:41 Salicylates 0.4 mg/dL (3-10) L 11/26/22 16:23 Urine Opiates Screen Negative ng/mL (Negative) 11/26/22 17:25 Acetaminophen < 5.0 ug/mL (10-30) L 11/26/22 16:23 Ur Barbiturates Screen Negative ng/mL (Negative) 11/26/22 17:25 Ur Phencyclidine Scrn Negative ng/mL (Negative) 11/26/22 17:25 Ur Amphetamines Screen Negative ng/mL (Negative) 11/26/22 17:25 U Benzodiazepines Scrn Negative ng/mL (Negative) 11/26/22 17:25 Urine Cocaine Screen Negative ng/mL (Negative) 11/26/22 17:25 U Marijuana (THC) Screen Negative ng/mL (Negative) 11/26/22 17:25 Ethyl Alcohol < 10 mg/dL (0-10) 11/26/22 16:23 RPR Nonreactive (Nonreactive) 11/30/22 18:18 Adenovirus (PCR) Not detected (NOT DETECT) 12/28/22 02:41 C. pneumoniae DNA (PCR) Not detected (NOT DETECT) 12/28/22 02:41 C.trachomatis RNA (TMA) Not detected (NOT DETECTED) 11/30/22 16:26 Chlamydia/GC Comment See note 11/30/22 16:26 Coronavirus 229E (PCR) Not detected (NOT DETECT) 12/28/22 02:41 Hepatitis C Antibody Non-reactive (Nonreactive) 11/30/22 18:18 HIV 1&2 Ab & HIV 1 Ag Non-reactive (Non-Reactiv) 11/30/22 18:18 HIV 1&2 Antibody Non-reactive (Non-Reactiv) 11/30/22 18:18 Human Metapneumovir PCR Not detected (NOT DETECT) 12/28/22 02:41 Influenza A (H1) PCR Not detected (NOT DETECT) 12/28/22 02:41 Influenza A (H3) PCR Not detected (NOT DETECT) 12/28/22 02:41 Influenza Type A Ag Negative (Negative) 12/27/22 21:30 Influenza Type A (PCR) Not detected (NOT DETECT) 12/28/22 02:41 Influenza Type B Ag Negative (Negative) 12/27/22 21:30 Influenza Type B (PCR) Not detected (NOT DETECT) 12/28/22 02:41 M. pneumoniae (PCR) Not detected (NOT DETECT) 12/28/22 02:41 N.gonorrhoeae RNA (TMA) Not detected (NOT DETECTED) 11/30/22 16:26 Parainfluenza 1 (PCR) Not detected (NOT DETECT) 12/28/22 02:41 Parainfluenza 2 (PCR) Not detected (NOT DETECT) 12/28/22 02:41 Parainfluenza 3 (PCR) Not detected (NOT DETECT) 12/28/22 02:41 Parainfluenza 4 (PCR) Not detected (NOT DETECT) 12/28/22 02:41 RSV Type A (PCR) Not detected (NOT DETECT) 12/28/22 02:41 RSV Type B (PCR) Not detected (NOT DETECT) 12/28/22 02:41 Entero/Rhino (PCR) Not detected (NOT DETECT) 12/28/22 02:41 SARS-CoV-2 (PCR) Not detected (NOT DETECT) 12/28/22 02:41 SARS-CoV-2 Ag (Rapid) Negative (Negative) 12/27/22 20:25 T. vaginalis Amp RNA Not detected (NOT DETECTED) 11/30/22 16:[address] 12/28/22 01:07 IMPRESSION: No acute intracranial abnormality. Recent Clincial Data Last Vital Signs Temp 101.4 F H 12/28/22 09:30 Pulse 126 H 12/28/22 16:30 Resp 18 12/28/22 15:41 BP 96/76 12/28/22 16:45 Pulse Ox 96 12/28/22 16:30 O2 Del Method Mechanical Ventilation 12/28/22 13:45 FiO2 35 12/28/22 15:41 Intake & Output/Weight 12/27/22 12/28/22 12/29/22 12/30/22 06:59 06:59 06:59 06:59 Intake Total 50 / 50 3233.302 / 3233.302 Output Total 2225 / 2225 Balance 50 / 50 1008.302 / 1008.302 Weight 132.449 kg Vitals Last Vital Signs Temp 101.4 F H 12/28/22 09:30 Pulse 126 H 12/28/22 16:30 Resp 18 12/28/22 15:41 BP 96/76 12/28/22 16:45 Pulse Ox 96 12/28/22 16:30 O2 Del Method Mechanical Ventilation 12/28/22 13:45 FiO2 35 12/28/22 15:41 TS Medications Medications Discontinued Medications Acetaminophen (Acetaminophen 650 Mg Supp) 650 mg TN Q6H PRN PRN Reason: FEVER Last Admin: 12/28/22 05:17 Dose: 650 mg Albuterol/Ipratropium (Ipratropium-Albuterol 3 Ml Neb) 3 ml INHALATION Q6H PRN PRN Reason: SHORTNESS OF BREATH Last Admin: 12/28/22 13:55 Dose: 3 ml Aspirin (Aspirin 81 Mg Ec Tablet) 81 mg PO DAILY [facility] Last Admin: 12/28/22 09:53 Dose: 81 mg Benztropine Mesylate (Benztropine 1 Mg Tablet) 1 mg PO BID PRN PRN Reason: Mild Extrapyramidal symptoms Buprenorphine/Naloxone (Buprenorphine-Naloxone 4-1 Mg Film) 1 each SUBLINGUAL BID [facility] Last Admin: 12/27/22 17:57 Dose: 1 each Camphor/Menthol/Phenol (Blistex Lip Oint 7 Gm Tube) 1 applic TOPICAL Q1H PRN PRN Reason: DRYNESS Last Admin: 12/05/22 09:42 Dose: 1 applic Clozapine (Clozapine 25 Mg Tablet) 25 mg PO BID [facility] Last Admin: 12/23/22 08:37 Dose: 25 mg Clozapine (Clozapine 25 Mg Tablet) 50 mg PO BID [facility] Last Admin: 12/25/22 10:23 Dose: 50 mg Clozapine (Clozapine 25 Mg Tablet) 75 mg PO BID [facility] Last Admin: 12/27/22 09:31 Dose: 75 mg Clozapine (Clozapine 100 Mg Tablet) 100 mg PO BID [facility] Last Admin: 12/27/22 17:57 Dose: 100 mg Diphenhydramine HCl (Diphenhydramine 50 Mg/Ml Sdv 1ml) 50 mg IM Q4H PRN PRN Reason: Severe Aggression Diphenhydramine HCl (Diphenhydramine 50 Mg/Ml Sdv 1ml) 50 mg IM ONCE PRN PRN Reason: Severe Extrapyramidal Symptoms Diphenhydramine HCl (Diphenhydramine 50 Mg Capsule) 50 mg PO Q4H PRN PRN Reason: AGITATION Last Admin: 12/21/22 19:49 Dose: 50 mg Enoxaparin Sodium (Enoxaparin 120 Mg/0.8 Ml Syringe) 120 mg SUBCUT Q12H [facility] Last Admin: 12/28/22 05:17 Dose: 120 mg Escitalopram Oxalate (Escitalopram 10 Mg Tablet) 10 mg PO DAILY [facility] Last Admin: 12/28/22 09:53 Dose: 10 mg Etomidate (Etomidate 2 Mg/Ml Inj Sdv 10 Ml) 30 mg IVP NOW ONE Stop: 12/28/22 08:28 Last Admin: 12/28/22 08:43 Dose: 30 mg Furosemide (Furosemide 10 Mg/Ml Sdv 4ml) 40 mg IVP Q12H [facility] Last Admin: 12/28/22 14:02 Dose: 40 mg Gabapentin (Gabapentin 300 Mg Capsule) 300 mg PO BID [facility] Last Admin: 12/06/22 08:18 Dose: 300 mg Gabapentin (Gabapentin 300 Mg Capsule) 300 mg PO 00,2099 [facility] Last Admin: 12/27/22 21:01 Dose: Not Given Haloperidol (Haloperidol 5 Mg Tablet) 5 mg PO Q4H PRN PRN Reason: AGITATION Haloperidol (Haloperidol 5 Mg Tablet) 5 mg PO BID [facility] Last Admin: 12/06/22 08:19 Dose: 5 mg Haloperidol (Haloperidol 5 Mg Tablet) 5 mg PO 00,2099 [facility] Last Admin: 12/20/22 09:21 Dose: 5 mg Haloperidol (Haloperidol 5 Mg Tablet) 5 mg PO 2099 [facility] Last Admin: 12/20/22 20:16 Dose: 5 mg Haloperidol (Haloperidol 5 Mg Tablet) 3 mg PO 2099 [facility] Haloperidol (Haloperidol 1 Mg Tablet) 3 mg PO 2099 [facility] Last Admin: 12/21/22 19:50 Dose: 3 mg Haloperidol Lactate (Haloperidol Inj 5 Mg/Ml Inj 1 Ml) 5 mg IM Q4H PRN PRN Reason: Severe Aggression Hydroxyzine Pamoate (Hydroxyzine 25 Mg Capsule) 50 mg PO Q6H PRN PRN Reason: ANXIETY Last Admin: 12/08/22 18:41 Dose: 50 mg Ceftriaxone Sodium 1,000 mg/ (Sodium Chloride) 50 mls @ 100 mls/hr IV Q24H [facility]; Protocol Piperacillin Sod/Tazobactam (Sod / Sodium Chloride) 50 mls @ 0 mls/hr [id number] [facility]; Protocol Piperacillin Sod/Tazobactam (Sod 3.375 gm/ Sodium Chloride) 50 mls @ 12.5 mls/hr IV Q8H [facility] Last Infusion: 12/28/22 13:58 Dose: Infused Sodium Chloride (Sodium Chloride 0.9%) 1,000 mls @ 100 mls/hr IV .Q10H [facility] Last Infusion: 12/28/22 14:29 Dose: 0 mls/hr Sodium Chloride (Sodium Chloride 0.9%) 1,000 mls @ 999 mls/hr IV .Q1H1M ONE Stop: 12/28/22 06:34 Last Infusion: 12/28/22 07:21 Dose: Infused Vancomycin HCl / Sodium (Chloride) 250 mls @ 0 mls/hr [id number] PROTOCOL [facility]; Protocol Vancomycin/PEG/NADA/Lysine/Water (Vancocin) 1,250 mg in 250 mls @ 250 mls/hr IV Q12H [facility] Last Infusion: 12/28/22 07:48 Dose: Infused Fentanyl 1,000 mcg/ Sodium (Chloride) 100 mls @ 0 mls/hr IV .Q0M [facility]; Protocol Last Admin: 12/28/22 15:10 Dose: 100 mcg/hr, 10 mls/hr Propofol (Diprivan) 1,000 mg in 100 mls @ 0 mls/hr IV .Q0M [facility]; Protocol Last Titration: 12/28/22 15:11 Dose: 0 mcg/kg/min, 0 mls/hr Sodium Chloride (Sodium Chloride 0.9%) 1,000 mls @ 999 mls/hr IV .Q1H1M [facility] Stop: 12/28/22 11:15 Last Infusion: 12/28/22 14:29 Dose: Infused Norepinephrine Bitartrate 4 mg (/ Dextrose) 254 mls @ 0 mls/hr IV .Q0M [facility]; Protocol Midazolam HCl 100 mg/ Sodium (Chloride) 100 mls @ 0 mls/hr IV .Q0M [facility]; Protocol Last Admin: 12/28/22 14:44 Dose: 1 mg/hr, 1 mls/hr Ibuprofen (Ibuprofen 600 Mg Tablet) 600 mg PO Q6H PRN PRN Reason: MODERATE PAIN Last Admin: 12/18/22 12:27 Dose: 600 mg Iohexol (Iohexol 350 Mg/Ml 500 Ml Btl (Per Ml)) 0 ml IV ONCE ONE Stop: 12/28/22 11:46 Last Admin: 12/28/22 11:45 Dose: 100 ml Ketorolac Tromethamine (Ketorolac 30 Mg/Ml Inj) 15 mg IVP ONCE ONE Stop: 12/28/22 07:02 Last Admin: 12/28/22 08:05 Dose: Not Given Lamotrigine (Lamotrigine 25 Mg Tablet) 25 mg PO DAILY [facility] Last Admin: 11/28/22 09:52 Dose: 25 mg Lamotrigine (Lamotrigine 25 Mg Tablet) 25 mg PO BID [facility] Last Admin: 12/06/22 08:18 Dose: 25 mg Lamotrigine (Lamotrigine 25 Mg Tablet) 25 mg PO 0900,2100 [facility] Last Admin: 12/17/22 08:33 Dose: 25 mg Lamotrigine (Lamotrigine 25 Mg Tablet) 50 mg PO 0900,2100 [facility] Last Admin: 12/28/22 09:53 Dose: 50 mg Loperamide HCl (Loperamide 2 Mg Capsule) 2 mg PO Q6H PRN PRN Reason: DIARRHEA Lorazepam (Lorazepam 2 Mg/Ml Inj 1 Ml) 2 mg IM Q4H PRN PRN Reason: Severe Aggression Lorazepam (Lorazepam 2 Mg/Ml Inj 1 Ml) 2 mg IVP Q4H PRN PRN Reason: SEIZURES Naloxone HCl (Naloxone 0.4 Mg/Ml Sdv) 0.4 mg IVP PRN PRN PRN Reason: RESPIRATORY RATE < 8/MIN Last Admin: 12/28/22 01:53 Dose: 0.4 mg Naltrexone HCl (Naltrexone Hcl 50 Mg Tablet) 50 mg PO DAILY [facility] Last Admin: 12/22/22 08:53 Dose: 50 mg Nicotine (Nicotine 21 Mg Patch) 1 patch TRANSDERMA DAILY PRN PRN Reason: NICOTINE WITHDRAWAL Nicotine Polacrilex (Nicotine 2 Mg Gum) 2 mg BUCCAL Q2H PRN PRN Reason: NICOTINE WITHDRAWAL Last Admin: 12/17/22 18:01 Dose: 2 mg Nicotine Polacrilex (Nicotine 4 Mg Lozenge) 4 mg MUCOUS MEM Q2H PRN PRN Reason: NICOTINE CRAVINGS Last Admin: 12/24/22 09:03 Dose: 4 mg Olanzapine (Olanzapine 5 Mg Odt) 5 mg PO Q4H PRN PRN Reason: Agitation/Psychosis Last Admin: 12/14/22 18:07 Dose: 5 mg Ondansetron HCl (Ondansetron 4 Mg Tablet) 4 mg PO Q6H PRN PRN Reason: NAUSEA AND VOMITING Last Admin: 12/04/22 10:30 Dose: 4 mg Ondansetron HCl (Ondansetron 2 Mg/Ml Sdv 2 Ml) 4 mg IVP Q8H PRN PRN Reason: NAUSEA AND VOMITING Last Admin: 12/28/22 01:59 Dose: 4 mg Ondansetron HCl (Ondansetron 2 Mg/Ml Sdv 2 Ml) 4 mg IVP Q6H PRN PRN Reason: NAUSEA AND VOMITING Paliperidone Palmitate (Paliperidone Palmitate 234 Mg Syringe) 234 mg IM ONCE ONE Stop: 11/30/22 13:01 Last Admin: 11/30/22 12:51 Dose: 234 mg Pantoprazole Sodium (Pantoprazole 40 Mg Sdv) 40 mg IVP BID [facility] Polyethylene Glycol (Polyethylene Glycol 3350 Pkt 17 Gm) 17 gm PO DAILY PRN PRN Reason: CONSTIPATION Potassium Chloride (Potassium Chloride Er 20 Meq Tablet) 40 meq OG-TUBE DAILY [facility] Quetiapine Fumarate (Quetiapine 300 Mg Tablet) 150 mg PO BEDTIME [facility] Last Admin: 12/19/22 20:05 Dose: 150 mg Quetiapine Fumarate (Quetiapine 100 Mg Tablet) 200 mg PO BEDTIME [facility] Last Admin: 12/25/22 21:14 Dose: 200 mg Quetiapine Fumarate (Quetiapine 100 Mg Tablet) 150 mg PO BEDTIME [facility] Last Admin: 12/26/22 20:09 Dose: 150 mg Quetiapine Fumarate (Quetiapine 100 Mg Tablet) 100 mg PO BEDTIME [facility] Last Admin: 12/27/22 21:01 Dose: Not Given Rocuronium Twisp (Rocuronium 10 Mg/Ml Inj 5ml) 160 mg IVP Q1H PRN PRN Reason: intubation Last Admin: 12/28/22 08:45 Dose: 160 mg Trazodone HCl (Trazodone 50 Mg Tablet) 50 mg PO BEDTIME PRN PRN Reason: SLEEP Last Admin: 12/14/22 20:56 Dose: 50 mg Allergies acetaminophen [From Vicodin] Allergy (Mild, Verified 11/15/22 09:46) rash hydrocodone [From Vicodin] Allergy (Mild, Verified 11/15/22 09:46) rash shellfish derived Allergy (Mild, Verified 11/15/22 09:46) hives Home Medications paliperidone palmitate 234 mg/1.5 mL intramuscular syringe (Invega Sustenna) 234 mg (1.5 mL) IM .Q 3 weeks #1.5 mL 08/25/22 [Rx Confirmed 11/26/22] escitalopram oxalate 10 mg tablet 10 mg PO DAILY 11/26/22 [History Confirmed 11/26/22] gabapentin 300 mg capsule 300 mg PO BID 11/26/22 [History Confirmed 11/26/22] lamotrigine 25 mg tablet 25 mg PO DAILY 11/26/22 [History Confirmed 11/26/22] paliperidone 6 mg tablet,extended release 24 hr (Invega) 6 mg PO QAM 11/26/22 [History Confirmed 11/26/22] Discharge Plan Discharge Patient Disposition: Xfer Short-Term Hosp Condition: Stable Prescriptions: No Action Invega Sustenna 234 mg/1.5 mL syringe 234 mg IM .Q 3 weeks Qty: 1.5 2RF lamotrigine 25 mg tablet 25 mg PO DAILY gabapentin 300 mg capsule 300 mg PO BID escitalopram oxalate 10 mg tablet 10 mg PO DAILY Invega 6 mg Tablet Extended Release 24 Hr 6 mg PO QAM Discharge Orders: Transfer Out of Facility (Order); Ordered 12/28/22 Ordered By: Vasquez Oviedo Transfer Attestations Time Spent in Transfer Care: critical care time (35) Critical Care Time (min): 35 Quality Metrics Clinical Quality Measures [ No reported AMI, CVA or VTE this stay] Coding Level of Care Code Acute Code for Chg Fwd Diagnoses Altered mental status R41.82 Acute respiratory failure with hypoxia and hypercapnia J96.01; J96.02 Elevated troponin R79.89 Fever R50.9 Sepsis A41.9 New onset of congestive heart failure I50.9 Respiratory failure requiring intubation J96.90 Methamphetamine dependence F15.20 Chronic schizophrenia F20.9 Drug-induced psychotic disorder F19.959 Post-traumatic stress disorder, chronic F43.12 Morbid obesity E66.01 Difficult intubation T88.4XXA
== END 2022-12-28 17:00 | disposition short-term general hospital (02) | DRG 885 ==
LOC: ER 17:52 → NP 17:55 → ICU 12-28 01:10
PROVIDERS: Internal Medicine; Psychiatry & Neurology Psychiatry; Student in an Organized Health Care Education/Training Program; Admitting Provider Psychiatry & Neurology Psychiatry; Emergency Provider Emergency Medicine; Visit Provider Psychiatry & Neurology Psychiatry
DX: F20.0 Paranoid schizophrenia (principal); J69.0 Pneumonitis due to inhalation of food and vomit; A40.8 Other streptococcal sepsis; J96.02 Acute respiratory failure with hypercapnia; J96.01 Acute respiratory failure with hypoxia; Z68.41 Body mass index [BMI] 40.0-44.9, adult; J93.83 Other pneumothorax; Z11.52 Encounter for screening for COVID-19; E66.01 Morbid (severe) obesity due to excess calories; T88.4XXA Failed or difficult intubation, initial encounter; Y70.8 Miscellaneous anesthesiology devices associated with adverse incidents, not elsewhere classified; F43.12 Post-traumatic stress disorder, chronic; R79.89 Other specified abnormal findings of blood chemistry; R41.82 Altered mental status, unspecified; F32.A Depression, unspecified
CPT/HCPCS: 36415; 36416; 36573; 36600; 51702; 70450; 71045; 71275; 74177; 80051; 80053; 80306; 80307; 81001; 81025; 82330; 82803; 82805; 82962; 83036; 83605; 84443; 84484; 85025; 86592; 86803; 87040; 87070; 87077; 87086; 87186; 87205; 87426; 87486; 87491; 87581; 87591; 87633; 87804; 87806; 93005; 94002; 94640; 94660; 94799; 96372; 97150; 97165; 99285; C1751; J0573; J1650; J1940; J2250; J2310; J2405; J2543; J2704; J3010; J3370; J3490; J7030; Q0162; Q0163; Q9967

== ENCOUNTER → 2023-01-07 15:20 | Outpatient (BNVA) | payer MEDICAID, SELFPAY | PROVIDERS: Visit Provider Family Medicine | DX: R06.02 Shortness of breath (principal); J93.9 Pneumothorax, unspecified | CPT/HCPCS: 71046 ==

== ENCOUNTER 2023-03-09 11:04 | Inpatient (IN) | payer MEDICAID, SELFPAY ==
[2023-03-09 11:07] VITALS: BP 131/95; PULSE 101; TEMP 36.9; O2SAT 99
--- NOTE | 2023-03-09 11:28 | PC.PHAR ---
PT HERE FROM [facility]- PT HAS BEEN REFUSING MEDICATIONS- PT NEVER FILLED OR PICKED UP ESCITALOPRAM 10 MG FROM PHARMACY
[2023-03-09] MEDS: haloperidol 5 mg Tablet PO (11:40)
[2023-03-09] MEDS: benztropine 1 mg Tablet PO (11:40)
[2023-03-09 11:49] LABS: Basophils # 0.1 10^3/uL (0.0-0.1); Basophils % 0.6 %; Eosinophils # 0.1 10^3/uL (0.0-0.8); Eosinophils % 0.9 %; Hematocrit 46.4 % (36-47); Lymphocytes # 3.1 10^3/uL (0.8-4.8); Mean Corpuscular HGB Conc 34.5 g/dL (30-55); Mean Corpuscular Hemoglobin 30.6 pg (27-33); Mean Corpuscular Volume 88.7 fl (85-98); Mean Platelet Volume 9.1 fL (7.4-10.4); Monocytes # 0.6 10^3/uL (0.2-0.9); Monocytes % 6.8 %; Neutrophils # 4.96 10^3/uL (1.8-7.7); Neutrophils % 55.8 %; Nucleated Red Blood Cells % 0 %; Platelet Count 269 10^3/cmm (157-399); Red Blood Count 5.23 10^6/uL (3.85-5.65); Red Cell Distribution Width 11.9 % (12.1-15.1); White Blood Count 8.88 10^3/uL (3.29-11.43)
--- NOTE | 2023-03-09 11:55 | W.ED.PSYCHS ---
HPI - Psych General: Chief Complaint: Psychiatric Symptoms Stated Complaint: MHE Time Seen by Provider: 03/09/23 11:07 History of Present Illness: 32-year-old female presents with EMS from [facility] (which I am told is a sober living community). Patient has a history of schizoaffective/schizophrenia disorder, methamphetamine and crack cocaine use disorder, tobacco use disorder. She has recently stopped taking her medications and is not communicating well. In fact, she is has very little over the last few days. There is report that she had some suicidal statements at the facility. The patient intermittently talks to me. She is denying suicidal ideations, homicidal ideations or hallucinations at this time. (However, it is noted that she seems to stare at various different things and take a long time to respond.) Patient tells me that she recently found out she can refuse her medications. 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 She has been refusing lamotrigine and gabapentin as well as her albuterol. It looks like based on previous records from December and November that she had previously been managed with Invega, Lexapro, Clozaril, Seroquel in the past. In November she had a long hospitalization both here and at [facility] after a respiratory distress led to BiPAP which then was complicated by vomiting and difficult intubation. I do not see any documentation of hypoxic brain injury. The history is limited because the patient participates very little. She appears to be doing this somewhat volitionally; it seems she picks and chooses what she wants to reply to Review of Systems General: Reports: Other (Medical history is limited due to the patient's condition and/or participat) Narrative: The history is limited due to the patient's participation. It is unclear whether this is volitional or whether there is an underlying organic process or mental health illness limiting her participation. As a blanket statement she denies any concerns. She did specifically tell me she did not feel suicidal, homicidal, and was not hearing or seeing things. [facility] ED PFSH: Medical History Psychiatric care Schizoaffective disorder Surgical History History of left knee surgery Family History Mother Cancer cervical Other Diabetes Hyperlipidemia Hypertension Denies family history of Colon cancer Ovarian cancer Heart disease Breast cancer Uterine cancer Thyroid disease Stroke Social History (Updated 01/07/23 @ 14:49 by Mariangel Medley LPN) Smoking and tobacco/nicotine status: current every day tobacco/nicotine user cigarettes [ Other cigarette details: 3 cigarettes/day] Alcohol intake: former Substance/Drug Use: former Physical Exam Narrative: EXAM NARRATIVE: Patient's appearance is disheveled. She appears unkempt. She has long staring spells. She has delayed responses. She is slightly tachycardic but has normal radial pulses. There is a smell of body odor. No signs of any trauma. Pupils are equal round reactive to light. Extraocular movements are intact. No tremors or seizure-like activity. Her movements are slow and minimal. Const: COMMON NORMALS: alert and well nourished HENMT: COMMON NORMALS: normocephalic, atraumatic and external ears normal HEAD & SCALP: normocephalic and atraumatic EXTERNAL EAR: Yes external ears normal MOUTH: no muffled voice Eye: COMMON NORMALS: EOMs intact bilaterally, conjunctivae normal and no scleral icterus CONJUNCTIVA: Yes conjunctivae normal Neck/C-Spine: COMMON NORMALS: no JVD GENERAL: Yes normal visual inspection and Yes trachea midline Resp: COMMON NORMALS: normal respiratory effort, No use of accessory muscles and clear to auscultation bilaterally AUSCULTATION: clear to auscultation bilaterally Cardio: COMMON NORMALS: no JVD and regular rhythm RHYTHM: regular rhythm GI: COMMON NORMALS: Soft to palpation and non-tender PALPATION: Yes Soft to palpation and No Guarding due to palpation present (GI) Extremity: COMMON NORMALS: normal to inspection Neuro: COMMON NORMALS: moves all extremities and no focal motor deficits SENSORIUM/ORIENTATION: Yes alert Psych: APPEARANCE: Yes unkempt and Yes disheveled ATTITUDE: Yes Withdrawn affect present and Yes Guarded attititude/behavior present ACTIVITY/MOTOR BEHAVIOR: Yes appropriate eye contact, No psychomotor agitation, Yes psychomotor slowing, No fidgeting, No hyperactivity, No restless, No mannerisms and No stereotypies SPEECH: Yes slow and Yes delayed MOOD & AFFECT: Yes Flat affect present and Yes constricted affect THOUGHT PROCESS: Impoverished thought process present THOUGHT CONTENT: Yes other (Denying suicidal or homicidal thoughts or hallucinations) ATTENTION/CONCENTRATION: Yes other (Unclear) MEMORY/COGNITION: Yes other (Unclear) INSIGHT: Limited insight present (Psych) Skin: COMMON NORMALS: no rashes or lesions noted, turgor normal and no jaundice GENERAL SKIN EXAM: no rashes or lesions noted and turgor normal Course Vital Signs: Vital signs: Vital Signs Temperature 98.4 F 03/09/23 11:07 Pulse Rate 101 H 03/09/23 11:07 Blood Pressure 131/95 03/09/23 11:07 Pulse Oximetry 99 03/09/23 11:07 Oxygen Delivery Me thod Room Air 03/09/23 11:07 MDM - Psych Medical Decision Making Differential diagnosis includes psychosis, secondary gain, organic brain injury, other encephalopathy (metabolic, infectious, glycemic), other. Favor psychosis with impoverished thought process, flat and constricted affect, slow and delayed speech, guarded and withdrawn, unkempt and disheveled exam. Patient also witnessed by nursing staff to be staring into the corners and at the reddy and then giggling. I feel that she is having hallucinations and probably does not realize they are hallucinations. I am going to contact Dr. Gurrola, psychiatry, for evaluation. CBC, CMP, EKG, TSH reviewed. No acute concerns. UA, UPT, UDS pending urine collection. Discussed with Dr Gurrola for admission to [facility]--he has accepted. Lab Data 03/09/23 11:43 03/09/23 11:43 Laboratory Results WBC 8.88 10^3/uL (3.29-11.43) 03/09/23 11:43 RBC 5.23 10^6/uL (3.85-5.65) 03/09/23 11:43 Hgb 16.00 g/dL (11.27-16.99) 03/09/23 11:43 Hct 46.4 % (36-47) 03/09/23 11:43 MCV 88.7 fl (85-98) 03/09/23 11:43 MCH 30.6 pg (27-33) 03/09/23 11:43 MCHC 34.5 g/dL (30-55) 03/09/23 11:43 RDW 11.9 % (12.1-15.1) L 03/09/23 11:43 Plt Count 269 10^3/cmm (157-399) 03/09/23 11:43 MPV 9.1 fL (7.4-10.4) 03/09/23 11:43 Neut % (Auto) 55.8 % 03/09/23 11:43 Lymph % (Auto) 35.0 % 03/09/23 11:43 [place] % (Auto) 6.8 % 03/09/23 11:43 Eos % (Auto) 0.9 % 03/09/23 11:43 Baso % (Auto) 0.6 % 03/09/23 11:43 Neut # (Auto) 4.96 10^3/uL (1.8-7.7) 03/09/23 11:43 Lymph # (Auto) 3.1 10^3/uL (0.8-4.8) 03/09/23 11:43 [place] # (Auto) 0.6 10^3/uL (0.2-0.9) 03/09/23 11:43 Eos # (Auto) 0.1 10^3/uL (0.0-0.8) 03/09/23 11:43 Baso # (Auto) 0.1 10^3/uL (0.0-0.1) 03/09/23 11:43 Nucleated RBC % (auto) 0 % 03/09/23 11:43 Nucleated RBCs # 0.0 /100WBC 03/09/23 11:43 Sodium 137 mmol/L (136-145) 03/09/23 11:43 Potassium 4.1 mmol/L (3.5-5.1) 03/09/23 11:43 Chloride 101 mmol/L (98-107) 03/09/23 11:43 Carbon Dioxide 26 mmol/L (22-29) 03/09/23 11:43 Anion Gap 14.1 (5-19) 03/09/23 11:43 BUN 13 mg/dL (6-20) 03/09/23 11:43 Creatinine 0.7 mg/dL (0.5-0.9) 03/09/23 11:43 GFR Calculation 97.0 mL/min (90-130) 03/09/23 11:43 Glucose 98 mg/dL (65-115) 03/09/23 11:43 Calculated Osmolality 284 mOsm/kg (285-295) L 03/09/23 11:43 Calcium 9.8 mg/dL (8.5-10.5) 03/09/23 11:43 Total Bilirubin 0.3 mg/dL (0.15-1.2) 03/09/23 11:43 AST 19 U/L (0-32) 03/09/23 11:43 ALT 19 U/L (0-33) 03/09/23 11:43 Alkaline Phosphatase 84 U/L (35-105) 03/09/23 11:43 Total Protein 7.9 g/dL (6.6-8.7) 03/09/23 11:43 Albumin 4.2 g/dL (3.5-5.2) 03/09/23 11:43 Globulin 3.7 g/dL (1.3-4.6) 03/09/23 11:43 TSH 2.01 uIU/mL (0.27-4.20) 03/09/23 11:43 Salicylates 0.6 mg/dL (3-10) L 03/09/23 11:43 Acetaminophen < 5.0 ug/mL (10-30) L 03/09/23 11:43 Ethyl Alcohol < 10 mg/dL (0-10) 03/09/23 11:43 No radiology studies performed this visit EKG Data EKG 1: Interpretation: Sinus rhythm, rate 93, normal axis, normal intervals, no concerning ST segment elevations or depressions. Discharge Plan Discharge Patient Disposition: Admitted As Inpatient Clinical Impression: Acute psychosis, Schizophrenia, History of medication noncompliance Condition: Stable Coding Level of Care Code ED Director Marketing for Samantha Loco
--- NOTE | 2023-03-09 12:08 | ECG_ITS ---
[facility] Test Date: 2023-03-09 Pat Name: Diana Clarke Department: Room: Gender: Female Registered Radiographer: : 1990 Requested By: Terrell Gabriel Order Number: [id number] David MD: Kashmir Nelson M.D. Measurements Intervals [place] Rate: 93 P: 29 W[place]: 137 QRS: 35 QRSD: 86 T: 37 QT: 337 QTc: 420 Interpretive Statements SINUS RHYTHM LOW QRS VOLTAGE IN PRECORDIAL LEADS [QRS DEFLECTION < 1.0 mV IN CHEST LEADS] Compared to ECG 12/28/2022 03:16:46 Low QRS voltage now present Sinus tachycardia no longer present Incomplete right bundle-branch block no longer present T-wave abnormality no longer present Possible ischemia no longer present Electronically Signed On 03-09-2023 18:57:06 DIRECTOR CALL CENTER SALES by Kashmir Nelson M.D. [id number]
[2023-03-09 12:20] LABS: Alanine Aminotransferase 19 U/L (0-33); Albumin Level 4.2 g/dL (3.5-5.2); Alkaline Phosphatase 84 U/L (35-105); Blood Urea Nitrogen 13 mg/dL (6-20); Calcium 9.8 mg/dL (8.5-10.5); Carbon Dioxide 26 mmol/L (22-29); Chloride 101 mmol/L (98-107); Globulin 3.7 g/dL (1.3-4.6); Glucose 98 mg/dL (65-115); Osmolality Calculated 284 mOsm/kg (285-295); Salicylate 0.6 mg/dL (3-10); Sodium 137 mmol/L (136-145); Thyroid Stimulating Hormone 2.01 uIU/mL (0.27-4.20); Total Bilirubin 0.3 mg/dL (0.15-1.2); Total Protein 7.9 g/dL (6.6-8.7)
[2023-03-09 12:33] LABS: Acetaminophen < 5.0 ug/mL (10-30); Alcohol Level < 10 mg/dL (0-10)
[2023-03-09 12:34] LABS: Anion Gap 14.1 (5-19); Aspartate Amino Transferase 19 U/L (0-32); Potassium 4.1 mmol/L (3.5-5.1)
[2023-03-09 13:14] VITALS: RESP 18; O2SAT 99
[2023-03-09 13:18] VITALS: RESP 18
[2023-03-09 13:36] LABS: Add Urine Microscopic? YES; Amphetamines Screen Urine Negative (Negative); Barbiturates Screen Urine Negative (Negative); Benzodiazepines Screen Urine Negative (Negative); Bilirubin Urine Neg (Negative); Blood Urine Neg (Negative); Cocaine Screen Urine Negative (Negative); Glucose Urine UA Norm (Normal); Ketones Urine 1+ (Negative); Leukocyte Esterase Urine 1+ (Negative); Nitrate Urine Negative (Negative); Opiate Screen Urine Negative (Negative); PCP Screen Urine Negative (Negative); Protein Urine Neg (Negative); Specific Gravity, Urine 1.025 (1.005-1.030); THC Screen Urine Negative (Negative); Urine Appearance Hazy (CLEAR); Urine Color Yellow (Yellow); Urobilinogen Urine 1 mg/dL (Negative); pH Urine 5 (5-7)
[2023-03-09 13:37] LABS: Add Urine Culture? No; Bacteria Urine 1+ /hpf; Mucus Urine 1+ /hpf; RBC Urine 0-4 /hpf (0-2); Squamous Epithelial Cell Urine 15-25 /hpf (0-5); WBC Urine 0-4 /hpf (0-5)
[2023-03-09 14:00] VITALS: BP 118/81; PULSE 107; RESP 15; TEMP 37.1; O2SAT 98
--- NOTE | 2023-03-09 15:11 | PC.NURSE ---
PT WAS AN ADMIT FROM THE EMERGENCY DEPARTMENT. PT WAS BROUGHT FROM TURNING [facility] WHERE STAFF STATES THAT SHE HAS STOPPED TAKING HER MEDICATIONS WILLINGLY. PT LEGAL GUARDIAN IS DEANGELO KELLEY. UPON ADMIT TO THE NPU PT IS EVASIVE AND WITHDRAWN. PT ONLY ANSWERS WITH ONE WORD ANSWERS OR NOT AT ALL.
[2023-03-09] MEDS: lamoTRIgine 100 mg Tablet PO (17:23)
[2023-03-09 18:21] LABS: HCG Qualitative Urine. Negative (Negative)
[2023-03-09 20:08] VITALS: BP 101/61; PULSE 92; RESP 20; TEMP 37.2; O2SAT 95
[2023-03-09] MEDS: gabapentin 300 mg Capsule PO (20:10)
[2023-03-09] MEDS: trazodone 50 mg Tablet PO (20:10)
[2023-03-10 06:00] VITALS: RESP 18
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
--- NOTE | 2023-03-10 09:13 | PC.NURSE ---
Patient refused morning invega and gabapentin. Patient first said that she would only take the gabapentin. This nurse started to open gabapentin, then patient said nevermind, she didn't want either. attempts to persuade patient to take meds were unsuccessful. patient's responses were delayed.
[2023-03-10 14:00] VITALS: BP 119/86; PULSE 114; RESP 17; TEMP 36.7; O2SAT 97
[2023-03-10] MEDS: lamoTRIgine 100 mg Tablet PO (18:10)
[2023-03-10] MEDS: haloperidol 5 mg Tablet PO (20:11)
[2023-03-10] MEDS: gabapentin 300 mg Capsule PO (20:12)
[2023-03-10] MEDS: trazodone 50 mg Tablet PO (20:12)
[2023-03-10 20:23] VITALS: BP 107/65; PULSE 93; RESP 20; TEMP 36.8; O2SAT 96
[2023-03-11 06:00] VITALS: RESP 15
--- NOTE | 2023-03-11 07:40 | P.NPUPN_ITS ---
Subjective NPU 2 Subjective: Patient presented today reporting that she is feeling all right. We discussed the importance of her taking her medication regularly if her going to get her out of here soon. We discussed the likelihood of a level 2 assessment and discussed the treatment team working on that documentation. She denied any side effects to the medication. Mental Status Exam 2 MSE Comments: This is an obese versus morbidly obese white female in hospital scrubs with poor grooming but adequate eye contact. No abnormal movements except for significant psychomotor retardation. Cooperative with exam in mild distress. Her speech very limited in speech production, monotone in quality and limited spontaneity of speech. Mood described as okay, affect odd. Her thought process was concrete and nonlinear and she struggled to answer questions appropriately. Thought content: Patient denies suicidal or homicidal ideation, there were no delusions reported but paranoia noted, she denied auditory or visual hallucinations but concerns about hallucinations and internal preoccupation exist. Attention and concentration are limited and memory appears unreliable but none were formally tested. Her insight is poor. Her judgment is poor. Her impulse control appeared impaired. Intellectual ability appears limited. Vitals/I&O/Wt Last Vital Signs Temp 98.3 F 03/10/23 20:23 Pulse 93 03/10/23 20:23 Resp 15 03/11/23 06:00 BP 107/65 03/10/23 20:23 Pulse Ox 96 03/10/23 20:23 O2 Del Method Room Air 03/10/23 20:23 Data NPU 03/09/23 11:43 03/09/23 11:43 A&P Assessment and plan (1) Chronic schizophrenia: (2) Drug-induced psychotic disorder: (3) Post-traumatic stress disorder, chronic: (4) Methamphetamine dependence: (5) Depression, unspecified: Plan This is a 32-year-old white female with schizophrenia, known from previous significant hospitalization who presents again with disorganized thinking and disorganized behavior unable to maintain safety while residing in an inpatient substance abuse treatment center off of her medication. 1. ?Encourage individual, group and milieu therapy. 2. Recommend sober living treatment at the highest level of care to which the patient is willing to commit. 3. Continue q-15 minute checks for safety.? 4. Continue current medication and get collateral information as to how he got to this point and whether the Clozaril we had started before may have played a role in her aspiration event making it a nonstarter medication montanez. Restart Invega evaluate for other changes. Involuntary Hold Information 2 96 Hour Hold: 96 Hour Involuntary Admission: No 96 Hour Hold Ending Date: 96 Hour Hold Ending Time: 15:55 Attestations NPU 2 Medical Necessity Statement*: Inpatient hospitalization is medically necessary and the clinically appropriate intervention ?at this time.? We will monitor/initiate medications and make changes as indicated.? She will be in the hospital for over 2 midnights.? Her likely length of stay 7-10 days. Coding Level of Care Code Acute Code for Chg Fwd Diagnoses Chronic schizophrenia F20.9 Drug-induced psychotic disorder F19.959 Post-traumatic stress disorder, chronic F43.12 Methamphetamine dependence F15.20 Depression, unspecified F32.A
[2023-03-11] MEDS: gabapentin 300 mg Capsule PO (10:15)
[2023-03-11] MEDS: paliperidone ER 6 mg Tablet PO (10:15)
[2023-03-11 14:00] VITALS: BP 149/96; PULSE 107; RESP 15; TEMP 37.4; O2SAT 96
[2023-03-11] MEDS: lamoTRIgine 100 mg Tablet PO (18:43)
[2023-03-11 21:19] VITALS: BP 92/61; PULSE 98; RESP 16; TEMP 36.9; O2SAT 96
[2023-03-12 06:00] VITALS: RESP 16
--- NOTE | 2023-03-12 09:31 | P.NPUPN_ITS ---
Subjective NPU 2 Subjective: Patient presented today continuing to have very limited spontaneous verbalizations. Except for can I have Suboxone? We discussed her refusal of her medications and the need for us to get an antipsychotic in her system and debating with her guardian whether we should go back to the 234 mg Invega Sustenna every 3 weeks given her possible negative response to Clozaril. Mental Status Exam 2 MSE Comments: This is an obese versus morbidly obese white female in hospital scrubs with poor grooming but adequate eye contact. No abnormal movements except for significant psychomotor retardation. Cooperative with exam in mild distress. Her speech very limited in speech production, monotone in quality and limited spontaneity of speech. Mood described as okay, affect odd. Her thought process was concrete and nonlinear and she struggled to answer questions appropriately. Thought content: Patient denies suicidal or homicidal ideation, there were no delusions reported but paranoia noted, she denied auditory or visual hallucinations but concerns about hallucinations and internal preoccupation exist. Attention and concentration are limited and memory appears unreliable but none were formally tested. Her insight is poor. Her judgment is poor. Her impulse control appeared impaired. Intellectual ability appears limited. Vitals/I&O/Wt Last Vital Signs Temp 98.4 F 03/11/23 21:19 Pulse 98 03/11/23 21:19 Resp 16 03/12/23 06:00 BP 92/61 03/11/23 21:19 Pulse Ox 96 03/11/23 21:19 O2 Del Method Room Air 03/10/23 20:23 Data NPU 03/09/23 11:43 03/09/23 11:43 A&P Assessment and plan (1) Chronic schizophrenia: (2) Drug-induced psychotic disorder: (3) Post-traumatic stress disorder, chronic: (4) Methamphetamine dependence: (5) Depression, unspecified: Plan This is a 32-year-old white female with schizophrenia, known from previous significant hospitalization who presents again with disorganized thinking and disorganized behavior unable to maintain safety while residing in an inpatient substance abuse treatment center off of her medication. 1. ?Encourage individual, group and milieu therapy. 2. Recommend sober living treatment at the highest level of care to which the patient is willing to commit. 3. Continue q-15 minute checks for safety.? 4. Continue current medication and get collateral information as to how he got to this point and whether the Clozaril we had started before june have played a role in her aspiration event making it a nonstarter medication montanez. Restart Invega evaluate for other changes. Involuntary Hold Information 2 96 Hour Hold: 96 Hour Involuntary Admission: No 96 Hour Hold Ending Date: 96 Hour Hold Ending Time: 15:55 Attestations NPU 2 Medical Necessity Statement*: Inpatient hospitalization is medically necessary and the clinically appropriate intervention ?at this time.? We will monitor/initiate medications and make changes as indicated.? She will be in the hospital for over 2 midnights.? Her likely length of stay 7-10 days. Coding Level of Care Code Acute Code for [facility] Fwd Diagnoses Chronic schizophrenia F20.9 Drug-induced psychotic disorder F19.959 Post-traumatic stress disorder, chronic F43.12 Methamphetamine dependence F15.20 Depression, unspecified F32.A
--- NOTE | 2023-03-12 09:57 | PC.NURSE ---
Patient refused morning medications. Patient could not give any reason for refusal. Patient denies any needs at this time. Will notify Dr. Gurrola.
[2023-03-12] MEDS: nicotine 2 mg Gum BUCCAL (12:48)
--- NOTE | 2023-03-12 13:03 | PC.NURSE ---
patient at window frequently. patient's responses to questions are delayed or unanswered. patient appears to be responding to internal stimuli, laughing to self and talking to self at times
[2023-03-12] MEDS: lamoTRIgine 100 mg Tablet PO (17:12)
[2023-03-12] MEDS: diphenhydrAMINE 50 mg Capsule PO (18:47)
[2023-03-12 21:08] VITALS: BP 117/77; PULSE 101; RESP 18; O2SAT 95
[2023-03-13 06:00] VITALS: RESP 16
--- NOTE | 2023-03-13 07:33 | W.PM.NPUPNS ---
Subjective NPU Subjective: Patient presented today reporting she was okay. She continued to lack any significant spontaneous speech per staff reports and direct observation. She continues to ask for Suboxone. She continues to struggle with adherence. Mental Status Exam MSE Comments: This is an obese versus morbidly obese white female in hospital scrubs with poor grooming but adequate eye contact. No abnormal movements except for significant psychomotor retardation. Cooperative with exam in mild distress. Her speech very limited in speech production, monotone in quality and limited spontaneity of speech. Mood described as okay, affect odd. Her thought process was concrete and nonlinear and she struggled to answer questions appropriately. Thought content: Patient denies suicidal or homicidal ideation, there were no delusions reported but paranoia noted, she denied auditory or visual hallucinations but concerns about hallucinations and internal preoccupation exist. Attention and concentration are limited and memory appears unreliable but none were formally tested. Her insight is poor. Her judgment is poor. Her impulse control appeared impaired. Intellectual ability appears limited. Vitals/I&O/Wt Last Vital Signs Temp 98.4 F 03/11/23 21:19 Pulse 101 H 03/12/23 21:08 Resp 16 03/13/23 06:00 BP 117/77 03/12/23 21:08 Pulse Ox 95 03/12/23 21:08 O2 Del Method Room Air 03/10/23 20:23 Weight last 48 hrs Weight 113.398 kg Data NPU 03/09/23 11:43 03/09/23 11:43 A&P Assessment and plan (1) Drug-induced psychotic disorder: (2) Post-traumatic stress disorder, chronic: (3) Methamphetamine dependence: (4) Depression, unspecified: Plan This is a 32-year-old white female with schizophrenia, known from previous significant hospitalization who presents again with disorganized thinking and disorganized behavior unable to maintain safety while residing in an inpatient substance abuse treatment center off of her medication. 1. ?Encourage individual, group and milieu therapy. 2. Recommend sober living treatment at the highest level of care to which the patient is willing to commit. 3. Continue q-15 minute checks for safety.? 4. Continue current medication and get collateral information as to how he got to this point and whether the Clozaril we had started before may have played a role in her aspiration event making it a nonstarter medication montanez. Restart Invega evaluate for other changes. Involuntary Hold Information 96 Hour Hold: 96 Hour Involuntary Admission: No 96 Hour Hold Ending Date: 12/02/22 96 Hour Hold Ending Time: 15:55 Attestations NPU Medical Necessity Statement*: Inpatient hospitalization is medically necessary and the clinically appropriate intervention ?at this time.? We will monitor/initiate medications and make changes as indicated.? Her likely length of stay 7-10 days. Coding Level of Care Code Acute Code for [facility] Fwd Diagnoses Drug-induced psychotic disorder F19.959 Post-traumatic stress disorder, chronic F43.12 Methamphetamine dependence F15.20 Depression, unspecified F32.A
[2023-03-13] MEDS: paliperidone ER 6 mg Tablet PO (09:42)
[2023-03-13] MEDS: gabapentin 300 mg Capsule PO (09:42)
--- NOTE | 2023-03-13 17:22 | PC.NURSE ---
Patient continues to ask staff if we have anything to give her for a tapeworm. When asked what makes her think she has a tapeworm she replied that she has been seeing worms in her stool. Staff requested that the patient let the staff know when she has a bowel movement so we can observe it as well. Patient agreed.
[2023-03-13] MEDS: lamoTRIgine 100 mg Tablet PO (17:23)
--- NOTE | 2023-03-13 20:09 | PC.NURSE ---
pt refused vital signs. respiration rate 18
[2023-03-14 06:00] VITALS: RESP 16
--- NOTE | 2023-03-14 07:33 | PC.NURSE ---
Patient seems irritated that she is being assessed this morning, answering questions in an annoyed tone and very short. She denies si/hi and avh. She denies any feelings of depression, but when asked if she felt anxious she replied, annoyed, uhhh yah...for coffee. Patient given coffee shortly after.
[2023-03-14 08:33] LABS: Basophils % 0.4 %; Eosinophils # 0.1 10^3/uL (0.0-0.8); Eosinophils % 1.9 %; Hematocrit 43.5 % (36-47); Lymphocytes # 2.2 10^3/uL (0.8-4.8); Lymphocytes % 30.6 %; Mean Corpuscular HGB Conc 33.8 g/dL (30-55); Mean Corpuscular Hemoglobin 30.4 pg (27-33); Mean Corpuscular Volume 90.1 fl (85-98); Mean Platelet Volume 9.2 fL (7.4-10.4); Monocytes # 0.5 10^3/uL (0.2-0.9); Monocytes % 7.2 %; Neutrophils # 4.26 10^3/uL (1.8-7.7); Neutrophils % 59.2 %; Nucleated Red Blood Cells % 0 %; Platelet Count 233 10^3/cmm (157-399); Red Blood Count 4.83 10^6/uL (3.85-5.65); Red Cell Distribution Width 11.8 % (12.1-15.1)
[2023-03-14 08:50] LABS: Alanine Aminotransferase 14 U/L (0-33); Albumin Level 3.9 g/dL (3.5-5.2); Alkaline Phosphatase 83 U/L (35-105); Anion Gap 15.7 (5-19); Aspartate Amino Transferase 13 U/L (0-32); Blood Urea Nitrogen 8 mg/dL (6-20); Carbon Dioxide 24 mmol/L (22-29); Chloride 102 mmol/L (98-107); Creatinine Clr Calc Pharmacy 152.4521; Globulin 3.1 g/dL (1.3-4.6); Glucose 118 mg/dL (65-115); Osmolality Calculated 283 mOsm/kg (285-295); Potassium 4.7 mmol/L (3.5-5.1); Sodium 137 mmol/L (136-145); Total Bilirubin 0.2 mg/dL (0.15-1.2)
[2023-03-14] MEDS: gabapentin 300 mg Capsule PO (09:29)
[2023-03-14] MEDS: paliperidone ER 6 mg Tablet PO (09:29)
[2023-03-14] MEDS: ondansetron 4 MG Tablet PO (12:32)
[2023-03-14 14:00] VITALS: BP 110/81; PULSE 97; RESP 14; TEMP 36.9; O2SAT 98
[2023-03-14] MEDS: lamoTRIgine 100 mg Tablet PO (18:19)
[2023-03-14] MEDS: diphenhydrAMINE 50 mg Capsule PO (18:37)
--- NOTE | 2023-03-14 19:44 | W.PM.NPUPNS ---
Subjective NPU Subjective: 32-year-old white female with a history of polysubstance abuse along with psychosis currently on Invega admitted with further mental health issues leading her to decompensate while staying at the [facility]. The patient is under guardianship. She was unable to provide any reasonable information regarding her stay but it appears that she had been refusing her psychotropic medications. She had reported that she continued to feel as if she was infested by worms inside of her body. She had stated that she wished to be put on medications for pinworms. The patient had not expressed any desire to use any illicit drugs or alcohol. She did request Suboxone but did not appear to be having any clear opiate related withdrawal symptoms. Mental Status Exam MSE Comments: This is an obese versus morbidly obese white female in hospital scrubs with improved grooming and fair eye contact. No abnormal movements except for significant psychomotor retardation. Cooperative with exam in mild distress. Her speech had limited production and monotone in quality and limited spontaneity of speech. Mood described as okay., affect odd. Her thought process was concrete and nonlinear and she struggled to answer questions appropriately. Thought content: Patient denies suicidal or homicidal ideation, Delusions of parasitic infestation remains. She denied auditory or visual hallucinations but concerns about hallucinations and internal preoccupation exist. Attention and concentration are limited and memory appears unreliable but none were formally tested. Her insight is poor. Her judgment is poor. Her impulse control appeared impaired. Intellectual ability appears limited. Vitals/I&O/Wt Last Vital Signs Temp 98.5 F 03/14/23 14:00 Pulse 97 03/14/23 14:00 Resp 14 03/14/23 14:00 BP 110/81 03/14/23 14:00 Pulse Ox 98 03/14/23 14:00 O2 Del Method Room Air 03/10/23 20:23 Weight last 48 hrs Weight 113.398 kg Data NPU 03/14/23 08:20 03/14/23 08:20 A&P Assessment and plan (1) Drug-induced psychotic disorder: (2) Post-traumatic stress disorder, chronic: (3) Methamphetamine dependence: (4) Depression, unspecified: Plan This is a 32-year-old white female with schizophrenia, known from previous significant hospitalization who presents again with disorganized thinking and disorganized behavior unable to maintain safety while residing in an inpatient substance abuse treatment center off of her medication. 1. ?Encourage individual, group and milieu therapy. 2. Recommend sober living treatment at the highest level of care to which the patient is willing to commit. 3. Continue q-15 minute checks for safety.? 4. Continue Invega as prescribed. Involuntary Hold Information 96 Hour Hold: 96 Hour Involuntary Admission: No 96 Hour Hold Ending Date: 12/02/22 96 Hour Hold Ending Time: 15:55 Attestations NPU Medical Necessity Statement*: Inpatient hospitalization is medically necessary and the clinically appropriate intervention ?at this time.? We will monitor/initiate medications and make changes as indicated.? Her likely length of stay 7-10 days. Coding Level of Care Code Acute Code for [facility] Fwd Diagnoses Drug-induced psychotic disorder F19.959 Post-traumatic stress disorder, chronic F43.12 Methamphetamine dependence F15.20 Depression, unspecified F32.A
--- NOTE | 2023-03-14 20:13 | PC.NURSE ---
pt refused vital signs. respiration rate 16
--- NOTE | 2023-03-14 22:02 | PC.NURSE ---
IN BED RESTING DENIES SI/HI AND AVH AT THIS TIME. PT HAS DELAYED RESPONSES TO QUESTIONS. AFFECT IS NOTED TO BE FLAT. PT WAS ENCOURAGED MANY TIMES TO TAKE BEDTIME MEDICATIONS BUT DECLINES. ALL QUESTIONS ANSWERED AND SUPPORT WAS VOICED.
--- NOTE | 2023-03-15 08:19 | PC.NURSE ---
during assessment, kiara states that she is anxious and depressed and wants to kill herself. When asked about a plan , patient stated noithing . patient blocking, refused to expand on her statements.
[2023-03-15 14:00] VITALS: BP 98/64; PULSE 86; RESP 18; TEMP 37; O2SAT 98
--- NOTE | 2023-03-15 17:37 | W.PM.NPUPNS ---
Subjective NPU Subjective: 32-year-old white female with a history of polysubstance abuse along with psychosis currently on Invega admitted with further mental health issues leading her to decompensate while staying at the [facility]. The patient continued to appear confused on the unit. She was unable to provide any recent information regarding her care over the past few months including providing any information about her current whereabouts. She had reported continuing to believe that she had parasites inside of her. She had required significant prompting for completion of activities of daily living. She had refused her oral medications and had stated that she needed Suboxone but was unable to elaborate regarding what current problem had required her to need Suboxone. The patient reported no mood symptoms. Mental Status Exam MSE Comments: This is an obese versus morbidly obese white female in hospital scrubs with limited grooming and fleeting eye contact. No abnormal movements except for significant psychomotor retardation. She was cooperative with exam in moderate distress. Her speech had limited in production and monotone in quality and limited in spontaneity of speech with simple yes and no answers. Mood was not endorsed today. affect: bizarre, blunted. Her thought process was concrete and nonlinear and she struggled to answer questions appropriately. Thought content: Patient denies suicidal or homicidal ideation, Delusions of parasitic infestation remains. She denied auditory or visual hallucinations but concerns about hallucinations and internal preoccupation exist. Attention and concentration are limited and memory appears unreliable but none were formally tested. Her insight is poor. Her judgment is poor. Her impulse control appeared impaired. Intellectual ability appears limited. Vitals/I&O/Wt Last Vital Signs Temp 98.6 F 03/15/23 14:00 Pulse 86 03/15/23 14:00 Resp 18 03/15/23 14:00 BP 98/64 03/15/23 14:00 Pulse Ox 98 03/15/23 14:00 O2 Del Method Room Air 03/10/23 20:23 Data NPU 03/14/23 08:20 03/14/23 08:20 A&P Assessment and plan (1) Drug-induced psychotic disorder: (2) Post-traumatic stress disorder, chronic: (3) Methamphetamine dependence: (4) Depression, unspecified: Plan This is a 32-year-old white female with schizophrenia, known from previous significant hospitalization who presents again with disorganized thinking and disorganized behavior unable to maintain safety while residing in an inpatient substance abuse treatment center off of her medication. 1. ?Encourage individual, group and milieu therapy. 2. Recommend sober living treatment at the highest level of care to which the patient is willing to commit. 3. Continue q-15 minute checks for safety.? 4. Continue Invega as prescribed. Invega 234mg ordered IM. Involuntary Hold Information 96 Hour Hold: 96 Hour Involuntary Admission: No 96 Hour Hold Ending Date: 12/02/22 96 Hour Hold Ending Time: 15:55 Attestations NPU Medical Necessity Statement*: Inpatient hospitalization is medically necessary and the clinically appropriate intervention ?at this time.? We will monitor/initiate medications and make changes as indicated.? Her likely length of stay 15-20 days. Coding Level of Care Code Acute Code for [facility] Fwd Diagnoses Drug-induced psychotic disorder F19.959 Post-traumatic stress disorder, chronic F43.12 Methamphetamine dependence F15.20 Depression, unspecified F32.A
[2023-03-15 20:48] VITALS: BP 99/68; PULSE 89; RESP 18; TEMP 36.9; O2SAT 97
--- NOTE | 2023-03-16 06:21 | PC.NURSE ---
Attempted to obtain vitals. Patient stated no thank you
[2023-03-16] MEDS: gabapentin 300 mg Capsule PO (08:16)
[2023-03-16] MEDS: paliperidone ER 6 mg Tablet PO (08:16)
--- NOTE | 2023-03-16 10:37 | PC.NURSE ---
I CALLED AND SPOKE WITH DEANGELO KELLEY, PT GUARDIAN, TO SIGN A RELEASE FORM TO GET PT RECORDS FROM [place]. HE REQUEST WE EMAIL OR FAX PAPERWORK TO HIM. FAX NUMBER [phone].
[2023-03-16] MEDS: paliperidone palmitate 234 mg Syringe IM (11:23)
[2023-03-16 14:00] VITALS: BP 117/80; PULSE 74; RESP 17; TEMP 36.7; O2SAT 94
[2023-03-16] MEDS: lamoTRIgine 100 mg Tablet PO (18:00)
--- NOTE | 2023-03-16 18:19 | W.PM.NPUPNS ---
Subjective NPU Subjective: 32-year-old white female with a history of polysubstance abuse along with psychosis currently on Invega admitted with further mental health issues leading her to decompensate while staying at the [facility]. patient had continued to isolate herself on the milieu. She had appeared difficult and demanding. She continued to struggle with engaging in care of self and particularly her environment in her room. Patient had stated that she needed Suboxone and stated that it helped her for her methamphetamine use. She had continued to report craving for methamphetamine. She continued to appear at times odd and appeared to be engaging in conversations with herself. She continued to appear confused 1 regarding her recent history as she remained unable to provide information for how and why she had come to this place. Mental Status Exam MSE Comments: This is an obese versus morbidly obese white female in hospital scrubs with limited grooming and fleeting eye contact. No abnormal movements except for significant psychomotor retardation. She was cooperative with exam in moderate distress. Her speech had limited in production and monotone in quality and limited in spontaneity of speech with simple one word answers with evidence of thought blocking. Mood was described as good. affect: odd. Her thought process was superficial but linear. Thought content: Patient denies suicidal or homicidal ideation, Delusions of parasitic infestation remains. She denied auditory or visual hallucinations but concerns about hallucinations and internal preoccupation exist. Attention and concentration are limited and memory appears unreliable but none were formally tested. Her insight is poor. Her judgment is poor. Her impulse control appeared impaired. Intellectual ability appears limited. Vitals/I&O/Wt Last Vital Signs Temp 98.0 F 03/16/23 14:00 Pulse 74 03/16/23 14:00 Resp 17 03/16/23 14:00 BP 117/80 03/16/23 14:00 Pulse Ox 94 03/16/23 14:00 O2 Del Method Room Air 03/15/23 20:48 Data NPU 03/14/23 08:20 03/14/23 08:20 A&P Assessment and plan (1) Drug-induced psychotic disorder: (2) Post-traumatic stress disorder, chronic: (3) Methamphetamine dependence: (4) Depression, unspecified: Plan This is a 32-year-old white female with schizophrenia, known from previous significant hospitalization who presents again with disorganized thinking and disorganized behavior unable to maintain safety while residing in an inpatient substance abuse treatment center off of her medication. 1. ?Encourage individual, group and milieu therapy. 2. Recommend sober living treatment at the highest level of care to which the patient is willing to commit. 3. Continue q-15 minute checks for safety.? 4. Continue Invega as prescribed. Invega 234mg ordered IM and given today. (03/16/23) Involuntary Hold Information 96 Hour Hold: 96 Hour Involuntary Admission: No 96 Hour Hold Ending Date: 12/02/22 96 Hour Hold Ending Time: 15:55 Attestations NPU Medical Necessity Statement*: Inpatient hospitalization is medically necessary and the clinically appropriate intervention ?at this time.? We will monitor/initiate medications and make changes as indicated.? Her likely length of stay 15-20 days. Coding Level of Care Code Acute Code for [facility] Fwd Diagnoses Drug-induced psychotic disorder F19.959 Post-traumatic stress disorder, chronic F43.12 Methamphetamine dependence F15.20 Depression, unspecified F32.A
[2023-03-16 20:51] VITALS: RESP 20
--- NOTE | 2023-03-16 20:51 | PC.NURSE ---
Patient refused vitals. RR obtained
[2023-03-17 06:00] VITALS: RESP 18
--- NOTE | 2023-03-17 06:45 | PC.NURSE ---
Patient resting. RR obtained
[2023-03-17] MEDS: paliperidone ER 6 mg Tablet PO (08:33)
[2023-03-17 14:00] VITALS: RESP 18
--- NOTE | 2023-03-17 17:04 | P.NPUPN_ITS ---
Subjective NPU 2 Subjective: 32-year-old white female with a history of polysubstance abuse along with psychosis currently on Invega admitted with further mental health issues leading her to decompensate while staying at the [facility]. Patient made isolative on the milieu. She had required significant prompting for completion of activities of daily living. Patient's struggled with engaging in any meaningful activity here. She had reported that she was doing good . She had not made any requests for being placed on Suboxone. She continued to report that she was sleeping well. She continued to provide little information as to how she had come to be here in the hospital. She had continued to refuse her oral paliperidone and Lamictal. She had acknowledged the use of methamphetamine and opiates in the past. Mental Status Exam 2 MSE Comments: This is an obese versus morbidly obese white female in hospital scrubs with poor grooming and fleeting eye contact. She had the blankets covering her body and appeared to be engaging in some type of self stimulation under the blankets. No abnormal movements except for significant psychomotor retardation. She was cooperative with exam in moderate distress. Her speech had limited in production and monotone in quality and limited in spontaneity of speech with simple one word answers with continued evidence of thought blocking. Mood was described as okay. affect: odd, subdued and mood incogruent. Her thought process was very superficial. Thought content: Patient denies suicidal or homicidal ideation, Delusions of parasitic infestation remains. She denied auditory or visual hallucinations but concerns about hallucinations and internal preoccupation exist. Attention and concentration are limited and memory appears unreliable but none were formally tested. Her insight is poor. Her judgment is poor. Her impulse control appeared impaired. Intellectual ability appears limited. Vitals/I&O/Wt Last Vital Signs Temp 98.0 F 03/16/23 14:00 Pulse 74 03/16/23 14:00 Resp 18 03/17/23 14:00 BP 117/80 03/16/23 14:00 Pulse Ox 94 03/16/23 14:00 O2 Del Method Room Air 03/15/23 20:48 Data NPU 03/14/23 08:20 03/14/23 08:20 A&P Assessment and plan (1) Drug-induced psychotic disorder: (2) Post-traumatic stress disorder, chronic: (3) Methamphetamine dependence: (4) Depression, unspecified: Plan This is a 32-year-old white female with schizophrenia, known from previous significant hospitalization who presents again with disorganized thinking and disorganized behavior unable to maintain safety while residing in an inpatient substance abuse treatment center off of her medication. 1. ?Encourage individual, group and milieu therapy. 2. Recommend sober living treatment at the highest level of care to which the patient is willing to commit. 3. Continue q-15 minute checks for safety.? 4. Continue Invega as prescribed. Invega 234mg ordered IM and given on (03/17/23) 5. Patient under guardianship, level 2 completed-seeking extended placement at assisted living facility or even higher level of care. Involuntary Hold Information 2 96 Hour Hold: 96 Hour Involuntary Admission: No 96 Hour Hold Ending Date: 96 Hour Hold Ending Time: 15:55 Attestations NPU 2 Medical Necessity Statement*: Inpatient hospitalization is medically necessary and the clinically appropriate intervention ?at this time.? We will monitor/initiate medications and make changes as indicated.? Her likely length of stay 15-20 days. Coding Level of Care Code Acute Code for [facility] Fwd Diagnoses Drug-induced psychotic disorder F19.959 Post-traumatic stress disorder, chronic F43.12 Methamphetamine dependence F15.20 Depression, unspecified F32.A
[2023-03-17] MEDS: lamoTRIgine 100 mg Tablet PO (18:01)
[2023-03-17] MEDS: hyDROXYzine 25 mg Capsule 50 MG PO (20:02)
[2023-03-17] MEDS: gabapentin 300 mg Capsule PO (20:02)
[2023-03-17] MEDS: trazodone 50 mg Tablet PO (20:02)
[2023-03-17 20:38] VITALS: BP 114/67; PULSE 89; RESP 18; TEMP 36.4; O2SAT 97
--- NOTE | 2023-03-17 21:00 | PC.NURSE ---
IN ROOM, PT CAME OVER TO RN AND STOOD OVER ME WATCHING EVERYTHING THAT WAS WRITTEN DOWN. PT IS DELUSIONAL, REQUEST TO HAVE ALL THE CURES FOR HERPES AND THE REST OF THE DISEASES I HAVE, YOU NEED TO DRAW MY BLOOD. PT WAS ASKED IF SHE WAS HAVING SYMPTOMS OF THESE ILLNESSES BUT PT IS UNABLE TO VERBALIZE ANY SYMPTOMS. PT CONTINUES ASHLEY HAVE SOMATIC THOUGHTS. DENIES SI/HI AND AVH AT THIS TIME. PT IS EVASIVE WITH ASSESSMENT. DENIES ANXIETY AND DEPRESSION, RATING THEM 0/10, BUT THEN STATED SHE NEEDED SOMETHING FOR ANXIETY AND SLEEP. PT TOOK HER HS MEDICATIONS AND WAS GIVEN TRAZODONE 50 MG ORDERED FOR SLEEP AND VISTARIL 50 MG FOR INCREASED REPORTS OF ANXIETY. ALL QUESTIONS ANSWERED AND SUPPORT WAS VOICED.
[2023-03-18 06:00] VITALS: RESP 16
--- NOTE | 2023-03-18 06:30 | PC.NURSE ---
PT WAS GIVEN TRAZODONE AND VISTARIL LAST NIGHT FOR INSOMNIA AND ANXIETY. PT HAS SLEPT APPROXIMATELY 9 HOURS LAST NIGHT. MEDICATIONS ARE DEEMED EFFECTIVE.
[2023-03-18] MEDS: paliperidone ER 6 mg Tablet PO (11:29)
[2023-03-18 14:00] VITALS: BP 101/61; PULSE 132; RESP 20; TEMP 36.3; O2SAT 97
[2023-03-18] MEDS: lamoTRIgine 100 mg Tablet PO (16:52)
--- NOTE | 2023-03-18 17:01 | W.PM.NPUPNS ---
Subjective NPU Subjective: 32-year-old white female with a history of polysubstance abuse along with psychosis currently on Invega admitted with further mental health issues leading her to decompensate while staying at the [facility]. The patient had limited social engagement today. She had kept herself under the covers and revealed very little information. She had reported to staff that she continue to feel as if her body had worms inside of it. She continued to struggle with completion of activities of daily living. She showed relative disregard for specific rules. She did not require any as needed medications. She continued to have no evidence of desire to communicate with others. She was unable to describe having any family members or friends that she could communicate with outside of the hospital. Mental Status Exam MSE Comments: This is an obese versus morbidly obese white female in hospital scrubs with poor grooming and fleeting eye contact. She had the blankets covering her body with the patient's head being visible outside the covers. No abnormal movements except for significant psychomotor retardation. She was cooperative with exam in no acute distress. Her speech had limited in production and monotone in quality and limited in spontaneity of speech. Mood was not endorsed today. affect: odd, subdued and mood incogruent. Her thought process was difficult to assess as she was essentially nonverbal. Thought content: Patient denies suicidal or homicidal ideation, Delusions of parasitic infestation remains. She denied auditory or visual hallucinations but concerns about hallucinations and internal preoccupation exist. Attention and concentration are limited and memory appears unreliable but none were formally tested. Her insight is poor. Her judgment is poor. Her impulse control appeared impaired. Intellectual ability appears limited. Vitals/I&O/Wt Last Vital Signs Temp 97.4 F L 03/18/23 14:00 Pulse 132 H 03/18/23 14:00 Resp 20 H 03/18/23 14:00 BP 101/61 03/18/23 14:00 Pulse Ox 97 03/18/23 14:00 O2 Del Method Room Air 03/17/23 20:38 Data NPU 03/14/23 08:20 03/14/23 08:20 A&P Assessment and plan (1) Drug-induced psychotic disorder: (2) Post-traumatic stress disorder, chronic: (3) Methamphetamine dependence: (4) Depression, unspecified: Plan This is a 32-year-old white female with schizophrenia, known from previous significant hospitalization who presents again with disorganized thinking and disorganized behavior unable to maintain safety while residing in an inpatient substance abuse treatment center off of her medication. 1. ?Encourage individual, group and milieu therapy. 2. Recommend sober living treatment at the highest level of care to which the patient is willing to commit. 3. Continue q-15 minute checks for safety.? 4. Continue Invega as prescribed. Invega 234mg ordered IM and given on (03/17/23) 5. Patient under guardianship, level 2 completed-seeking extended placement at assisted living facility or even higher level of care. Will consider restarting Clozaril but awaiting records of patient's extended hospital stay in [place]. Concern exists as to whether respiratory depression occurred secondary to clozaril. Involuntary Hold Information 96 Hour Hold: 96 Hour Involuntary Admission: No 96 Hour Hold Ending Date: 12/02/22 96 Hour Hold Ending Time: 15:55 Attestations NPU Medical Necessity Statement*: Inpatient hospitalization is medically necessary and the clinically appropriate intervention ?at this time.? We will monitor/initiate medications and make changes as indicated.? Her likely length of stay 15-20 days. Coding Level of Care Code Acute Code for [facility] Fwd Diagnoses Drug-induced psychotic disorder F19.959 Post-traumatic stress disorder, chronic F43.12 Methamphetamine dependence F15.20 Depression, unspecified F32.A
--- NOTE | 2023-03-18 20:20 | PC.NURSE ---
IN BED RESTING, DENIES SI/HI AND AVH AT THIS TIME. DENIES PAIN. PT IS NOTED TO HAVE FLAT AFFECT AND BIZARRE BEHAVIORS AT TIMES. PT WAS ENCOURAGED TO TAKE PM MEDS BUT THEN ROLLED HER EYES AT STAFF AND SAID PROBABLE NOT.: ALL QUESTIONS ANSWERED AND SUPPORT VOICED.
[2023-03-18 20:41] VITALS: BP 97/57; PULSE 104; RESP 16; TEMP 36.9; O2SAT 96
[2023-03-19 06:00] VITALS: RESP 18
--- NOTE | 2023-03-19 06:34 | PC.NURSE ---
Patient sleeping. RR obtained.
--- NOTE | 2023-03-19 10:10 | PC.NURSE ---
patient refused morning invega medication.
[2023-03-19 14:00] VITALS: BP 124/92; PULSE 107; RESP 18; TEMP 36.8; O2SAT 98
--- NOTE | 2023-03-19 14:54 | PC.NURSE ---
Patient requested that this nurse check her stool for worms. Upon inspection, stool appeared normal. This nurse did not observe any worms. Patient stated don't you see them glowing. This nurse stated that there is some reflection from the overhead light hitting the water, but that nothing is glowing in her feces.
--- NOTE | 2023-03-19 16:04 | W.PM.NPUPNS ---
Subjective NPU Subjective: 32-year-old white female with a history of polysubstance abuse along with psychosis currently on Invega admitted with further mental health issues leading her to decompensate while staying at the [facility]. The patient continued to isolate herself on the milieu. She continued to refuse to take a shower. She had requested Suboxone to help with manage meant of her history of opiate use. She reported that she had been hospitalized for only 1 day in [place] after which [facility]. Patient was informed that she would likely need to be placed in a ch[facility] or assisted living facility and did not report any concern regarding that matter. She did not endorse having any place to live at this time. She had expressed worry that she would go back to using opiates or methamphetamine if she were to leave the hospital without services. She continued to complain of having some infestation of bugs in her body despite there being no evidence of infection. Mental Status Exam MSE Comments: This is a morbidly obese white female in hospital scrubs malodorous with fleeting eye contact. No abnormal movements except for significant psychomotor retardation. She was minimally cooperative with exam in no acute distress. Her speech had limited in production and monotone in quality and limited in spontaneity of speech. Mood was described as fine. affect: odd, subdued and mood incongruent. Her thought process was linear but superficial Thought content: Patient denies suicidal or homicidal ideation, Delusions of parasitic infestation remains. She denied auditory or visual hallucinations. Attention and concentration are limited and memory appears unreliable but none were formally tested. Her insight is poor. Her judgment is poor. Her impulse control appeared impaired. Intellectual ability appears limited. Vitals/I&O/Wt Last Vital Signs Temp 98.4 F 03/18/23 20:41 Pulse 104 H 03/18/23 20:41 Resp 18 03/19/23 06:00 BP 97/57 03/18/23 20:41 Pulse Ox 96 03/18/23 20:41 O2 Del Method Room Air 03/17/23 20:38 Data NPU 03/14/23 08:20 03/14/23 08:20 A&P Assessment and plan (1) Drug-induced psychotic disorder: (2) Post-traumatic stress disorder, chronic: (3) Methamphetamine dependence: (4) Depression, unspecified: Plan This is a 32-year-old white female with schizophrenia, known from previous significant hospitalization who presents again with disorganized thinking and disorganized behavior unable to maintain safety while residing in an inpatient substance abuse treatment center off of her medication. 1. Encourage individual, group and milieu therapy. 2. Recommend sober living treatment at the highest level of care to which the patient is willing to commit. 3. Continue q-15 minute checks for safety.? 4. Continue Invega as prescribed. Invega 234mg ordered IM and given on (03/17/23) 2nd dose of invega 156mg due on 03/22/23 5. Patient under guardianship, level 2 completed-seeking extended placement at assisted living facility or even higher level of care. Will consider restarting Clozaril but awaiting records of patient's extended hospital stay in [place]. Concern exists as to whether respiratory depression occurred secondary to clozaril. Involuntary Hold Information 96 Hour Hold: 96 Hour Involuntary Admission: No 96 Hour Hold Ending Date: 12/02/22 96 Hour Hold Ending Time: 15:55 Attestations NPU Medical Necessity Statement*: Inpatient hospitalization is medically necessary and the clinically appropriate intervention ?at this time.? We will monitor/initiate medications and make changes as indicated.? Her likely length of stay 15-20 days. Coding Level of Care Code Acute Code for [facility] Fwd Diagnoses Drug-induced psychotic disorder F19.959 Post-traumatic stress disorder, chronic F43.12 Methamphetamine dependence F15.20 Depression, unspecified F32.A
--- NOTE | 2023-03-19 17:32 | PC.NURSE ---
Patient refused 1800 lamictal
[2023-03-19] MEDS: trazodone 50 mg Tablet PO (20:11)
[2023-03-19] MEDS: haloperidol 5 mg Tablet PO (20:11)
[2023-03-19] MEDS: gabapentin 300 mg Capsule PO (20:11)
--- NOTE | 2023-03-19 20:53 | PC.NURSE ---
COMES TO NURSES STATION AND STARES AT STAFF THEN GOES TO ROOM. DENIES PAIN. DENIES SI/HI AND AVH AT THIS TIME. PT IS EVASIVE WITH ASSESSMENT AND DOES NOT ELABORATE ON ANY TOPICS. ONLY ANSWERS YES/NO THEN MAKES STATEMENTS SHE HAS STD'S AND WORMS, I KNOW I DO, PT WAS REASSURED THAT THE DR ORDERED TESTS TODAY TO CHECK FOR STDS AND THE RESULTS ARE PENDING BUT THIS RN WOULD REPORT THE RESULTS TO HER SOON WE HAD THEM AVAILABLE. PT RATES ANXIETY AND DEPRESSION 0/10. PT DID TAKE HER PM MEDICATIONS AND WAS GIVEN HALDOL 5 MG FOR INCREASED ANXIETY AND PACING UNIT, TRAZODONE 50 MG GIVEN FOR INSOMNIA. ALL QUESTIONS ANSWERED AND SUPPORT WAS VOICED.
[2023-03-19 22:00] VITALS: BP 143/112; PULSE 113; RESP 18; TEMP 37; O2SAT 97
--- NOTE | 2023-03-20 06:35 | PC.NURSE ---
PT WAS GIVEN HALDOL 5 MG FOR INCREASED ANXIETY AND TRAZODONE 50 MG FOR INSOMNIA LAST SHIFT. MEDICATIONS DEEMED EFFFECTIVE, PT SLEPT APPROXIMATELY 9 HOURS LAST SHIFT WITH EASE.
--- NOTE | 2023-03-20 06:42 | PC.NURSE ---
Asked pt multiple times to obtain vital signs. Pt refused. RN notified. Respiration Rate 16.
[2023-03-20] MEDS: paliperidone ER 6 mg Tablet PO (08:14)
[2023-03-20] MEDS: haloperidol 5 mg Tablet PO (08:14)
--- NOTE | 2023-03-20 13:20 | P.NPUPN_ITS ---
Subjective NPU 2 Subjective: 32-year-old white female with a history of polysubstance abuse along with psychosis currently on Invega admitted with further mental health issues leading her to decompensate while staying at the [facility]. The patient had continued to report that she felt that she was inhabited by parasites and worms in her body. She had reported that she continued to have cravings for opiates and wished to be started on Suboxone. She had been compliant with the oral intake of Invega and gabapentin yesterday. However, the patient has for the most part been refusing her oral medications. She had also requested medications to help her with her parasitic infestation. She had been more talkative to staff but remained isolative and spending most of the day and nighttime in her room. She reported no sleep continuity disruption. She reported having no friends or family that she communicated with on the phone. She did not report having knowledge of where she would go when she left the hospital. Mental Status Exam 2 MSE Comments: This is a morbidly obese white female in hospital scrubs malodorous with fleeting eye contact. She appeared somewhat childlike. No abnormal involuntary movements except for significant psychomotor retardation. She was minimally cooperative with exam in no acute distress. Her speech had limited in production and monotone in quality and limited in spontaneity of speech. Mood was described as okay. affect: odd, subdued and mood incongruent. Her thought process was linear but superficial Thought content: Patient denies suicidal or homicidal ideation, Delusions of parasitic infestation remains. She denied auditory or visual hallucinations. Attention and concentration are limited and memory appears unreliable but none were formally tested. Her insight is poor. Her judgment is poor. Her impulse control appeared impaired. Intellectual ability appears limited. Vitals/I&O/Wt Last Vital Signs Temp 98.6 F 03/19/23 22:00 Pulse 113 H 03/19/23 22:00 Resp 18 03/19/23 22:00 BP 143/112 03/19/23 22:00 Pulse Ox 97 03/19/23 22:00 O2 Del Method Room Air 03/19/23 22:00 Weight last 48 hrs Weight 129.727 kg Data NPU 03/14/23 08:20 03/14/23 08:20 A&P Assessment and plan (1) Drug-induced psychotic disorder: (2) Post-traumatic stress disorder, chronic: (3) Methamphetamine dependence: (4) Depression, unspecified: Plan This is a 32-year-old white female with schizophrenia, known from previous significant hospitalization who presents again with disorganized thinking and disorganized behavior unable to maintain safety while residing in an inpatient substance abuse treatment center off of her medication. 1. Encourage individual, group and milieu therapy. 2. Recommend sober living treatment at the highest level of care to which the patient is willing to commit. 3. Continue q-15 minute checks for safety.? 4. Continue Invega as prescribed. Invega 234mg ordered IM and given on (03/17/23) 2nd dose of invega 156mg due on 03/22/23 5. Patient under guardianship, level 2 completed-seeking extended placement at assisted living facility or even higher level of care. Will consider restarting Clozaril but awaiting records of patient's extended hospital stay in [place]. Concern exists as to whether respiratory depression occurred secondary to clozaril. Involuntary Hold Information 2 96 Hour Hold: 96 Hour Involuntary Admission: No 96 Hour Hold Ending Date: 96 Hour Hold Ending Time: 15:55 Attestations NPU 2 Medical Necessity Statement*: Inpatient hospitalization is medically necessary and the clinically appropriate intervention ?at this time.? We will monitor/initiate medications and make changes as indicated.? Her likely length of stay 15-20 days. Coding Level of Care Code Acute Code for [facility] Fwd Diagnoses Drug-induced psychotic disorder F19.959 Post-traumatic stress disorder, chronic F43.12 Methamphetamine dependence F15.20 Depression, unspecified F32.A
[2023-03-20 14:00] VITALS: BP 140/64; PULSE 96; RESP 18; TEMP 36.6; O2SAT 98
--- NOTE | 2023-03-20 20:39 | PC.NURSE ---
asked pt multiple times to obtain vital signs. pt stated no thank you RN notified. Respiration Rate 16.
--- NOTE | 2023-03-21 06:32 | PC.NURSE ---
Attempted to obtain vitals from patient. Patient stated no thank you
[2023-03-21] MEDS: paliperidone ER 6 mg Tablet PO (09:36)
[2023-03-21] MEDS: paliperidone palmitate 156 mg Syringe IM (09:36)
[2023-03-21 14:00] VITALS: BP 127/78; PULSE 82; RESP 16; TEMP 36.9; O2SAT 96
[2023-03-21] MEDS: buprenorphine-naloxone 4-1 mg Film 1 EACH SUBLINGUAL (15:07)
--- NOTE | 2023-03-21 17:47 | W.PM.NPUPNS ---
Subjective NPU Subjective: 32-year-old white female with a history of polysubstance abuse along with psychosis currently on Invega admitted with further mental health issues leading her to decompensate while staying at the [facility]. The patient continued to report having bug infestation. She had reported that she was waiting to go back to [place]. She was unable to describe where she would live or whom she would live with at this time. Patient was informed that she was under guardianship and would be going to another facility. She was compliant with her Suboxone today. She had continued to require significant redirection as she had required significant prompting to complete activities daily living including showering. Mental Status Exam MSE Comments: This is a morbidly obese white female in hospital scrubs malodorous with fleeting eye contact. She appeared somewhat childlike. No abnormal involuntary movements except for significant psychomotor retardation. She was minimally cooperative with exam in no acute distress. Her speech had limited in production and monotone in quality and limited in spontaneity of speech. Mood was described as allright. Her affect: odd, subdued and mood incongruent. Her thought process was linear but superficial Thought content: Patient denies suicidal or homicidal ideation, Delusions of parasitic infestation remains. She denied auditory or visual hallucinations. Attention and concentration are limited and memory appears unreliable but none were formally tested. Her insight is poor. Her judgment is poor. Her impulse control appeared impaired. Intellectual ability appears limited. Vitals/I&O/Wt Last Vital Signs Temp 98.5 F 03/21/23 14:00 Pulse 82 03/21/23 14:00 Resp 16 03/21/23 14:00 BP 127/78 03/21/23 14:00 Pulse Ox 96 03/21/23 14:00 O2 Del Method Room Air 03/19/23 22:00 Weight last 48 hrs Weight 129.727 kg Data NPU 03/14/23 08:20 03/14/23 08:20 A&P Assessment and plan (1) Drug-induced psychotic disorder: (2) Post-traumatic stress disorder, chronic: (3) Methamphetamine dependence: (4) Depression, unspecified: Plan This is a 32-year-old white female with schizophrenia, known from previous significant hospitalization who presents again with disorganized thinking and disorganized behavior unable to maintain safety while residing in an inpatient substance abuse treatment center off of her medication. 1. Encourage individual, group and milieu therapy. 2. Recommend sober living treatment at the highest level of care to which the patient is willing to commit. 3. Continue q-15 minute checks for safety.? 4. Continue Invega as prescribed. Invega 234mg ordered IM and given on (03/17/23) 2nd dose of invega 156mg due on 03/22/23 5. Patient under guardianship, level 2 completed-seeking extended placement at assisted living facility or even higher level of care. Awaiting intermediate facility. Patient possibly at baseline now, able to maintain safety here, but not able to live independently. Involuntary Hold Information 96 Hour Hold: 96 Hour Involuntary Admission: No 96 Hour Hold Ending Date: 12/02/22 96 Hour Hold Ending Time: 15:55 Attestations NPU Medical Necessity Statement*: Inpatient hospitalization is medically necessary and the clinically appropriate intervention ?at this time.? We will monitor/initiate medications and make changes as indicated.? Her likely length of stay 7-10 days. Coding Level of Care Code Acute Code for [facility] Diagnoses Drug-induced psychotic disorder F19.959 Post-traumatic stress disorder, chronic F43.12 Methamphetamine dependence F15.20 Depression, unspecified F32.A
[2023-03-21 17:53] LABS: Chlamydia Trachomatis RNA TMA NOT DETECTED (NOT DETECTED); Neisseria Gonorrhoeae RNA, TMA NOT DETECTED (NOT DETECTED); Trichomonas Vaginalis RNA NOT DETECTED (NOT DETECTED)
--- NOTE | 2023-03-22 06:38 | PC.NURSE ---
Attempted to obtain vitals from patient. Patient stated no thank you
[2023-03-22] MEDS: paliperidone ER 6 mg Tablet PO (08:38)
[2023-03-22] MEDS: buprenorphine-naloxone 4-1 mg Film 1 EACH SUBLINGUAL (08:38)
--- NOTE | 2023-03-22 15:56 | W.PM.NPUPNS ---
Subjective NPU Subjective: 32-year-old white female with a history of polysubstance abuse along with psychosis currently on Invega admitted with further mental health issues leading her to decompensate while staying at the [facility]. The patient had stated that she continued to feel that she would like to leave here. She was informed that she would likely be returning to a nursing facility as per her guardian request. She had been unable to describe any specific details regarding where she would go. She continued to appear confused on the unit while appearing to be engaged in no goal-directed activities. She had spent much of the afternoon wandering around the unit. She did not attend groups. She had spent much of the day in her room. She reported having little to no interest. She reported no side effects from her Suboxone. She had refused the other medications prescribed to her orally. Mental Status Exam MSE Comments: This is a morbidly obese white female in hospital scrubs malodorous with fleeting eye contact. She appeared somewhat childlike. No abnormal involuntary movements except for significant psychomotor retardation. She was minimally cooperative with exam in no acute distress. Her speech had limited in production and monotone in quality and limited in spontaneity of speech. Mood was described as allright. Her affect was bizarre. Her thought process was linear but superficial. Thought content: Patient denies suicidal or homicidal ideation, Delusions of parasitic infestation remains. She denied auditory or visual hallucinations. Attention and concentration are limited and memory appears unreliable but none were formally tested. Her insight is poor. Her judgment is poor. Her impulse control appeared impaired. Intellectual ability appears limited. Vitals/I&O/Wt Last Vital Signs Temp 98.5 F 03/21/23 14:00 Pulse 82 03/21/23 14:00 Resp 16 03/21/23 14:00 BP 127/78 03/21/23 14:00 Pulse Ox 96 03/21/23 14:00 O2 Del Method Room Air 03/19/23 22:00 Data NPU 03/14/23 08:20 03/14/23 08:20 Involuntary Hold Information 96 Hour Hold: 96 Hour Involuntary Admission: No 96 Hour Hold Ending Date: 12/02/22 96 Hour Hold Ending Time: 15:55 Attestations NPU Medical Necessity Statement*: Inpatient hospitalization is medically necessary and the clinically appropriate intervention ?at this time.? We will monitor/initiate medications and make changes as indicated.? Her likely length of stay 7-10 days. Coding Level of Care Code Acute Code for [facility]
--- NOTE | 2023-03-22 20:04 | PC.NURSE ---
Attempted to obtain vitals from patient. Patient stated no thank you
[2023-03-23] MEDS: buprenorphine-naloxone 4-1 mg Film 1 EACH SUBLINGUAL (09:04)
[2023-03-23] MEDS: paliperidone ER 6 mg Tablet PO (09:04)
[2023-03-23 14:00] VITALS: RESP 16
--- NOTE | 2023-03-23 15:06 | PC.NURSE ---
PT REFUSED 1400 VITALS, RESPIRTATIONS WERE OBTAINED AT 16. WILL CONTINUE TO MONITOR.
--- NOTE | 2023-03-23 15:35 | W.PM.NPUPNS ---
Subjective NPU Subjective: 32-year-old white female with a history of polysubstance abuse along with psychosis currently on Invega admitted with further mental health issues leading her to decompensate while staying at the [facility]. The patient was redirectable on the milieu. There was no acts of aggression. She reported that she was feeling fine. She had made no complaints regarding her Suboxone. She had reported having little family or friends to communicate with and was isolative and minimally interested in anything other than sleeping on the unit. Mental Status Exam MSE Comments: This is a morbidly obese white female in hospital scrubs malodorous with fleeting eye contact. She appeared somewhat childlike. No abnormal involuntary movements except for significant psychomotor retardation. She was minimally cooperative with exam in no acute distress. Her speech had limited in production and monotone in quality and limited in spontaneity of speech. Mood was described as good. Her affect was bizarre and mood incongruent. Her thought process was linear but superficial. Thought content: Patient denies suicidal or homicidal ideation, Delusions of parasitic infestation remains. She denied auditory or visual hallucinations. Attention and concentration are limited and memory appears unreliable but none were formally tested. Her insight is poor. Her judgment is poor. Her impulse control appeared impaired. Intellectual ability appears limited. Vitals/I&O/Wt Last Vital Signs Temp 98.5 F 03/21/23 14:00 Pulse 82 03/21/23 14:00 Resp 16 03/23/23 14:00 BP 127/78 03/21/23 14:00 Pulse Ox 96 03/21/23 14:00 O2 Del Method Room Air 03/19/23 22:00 Data NPU 03/14/23 08:20 03/14/23 08:20 A&P Assessment and plan (1) Drug-induced psychotic disorder: (2) Post-traumatic stress disorder, chronic: (3) Methamphetamine dependence: (4) Depression, unspecified: Plan This is a 32-year-old white female with schizophrenia, known from previous significant hospitalization who presents again with disorganized thinking and disorganized behavior unable to maintain safety while residing in an inpatient substance abuse treatment center off of her medication. 1. Encourage individual, group and milieu therapy. 2. Recommend sober living treatment at the highest level of care to which the patient is willing to commit. 3. Continue q-15 minute checks for safety.? 4. Continue Invega as prescribed. Invega 234mg ordered IM and given on (03/17/23) 2nd dose of invega 156mg given on 03/21/23. 5. Patient under guardianship, level 2 completed-seeking extended placement at assisted living facility or even higher level of care. [facility]. Patient possibly at baseline now, able to maintain safety here, but not able to live independently. Involuntary Hold Information 96 Hour Hold: 96 Hour Involuntary Admission: No 96 Hour Hold Ending Date: 12/02/22 96 Hour Hold Ending Time: 15:55 Attestations NPU Medical Necessity Statement*: Inpatient hospitalization is medically necessary and the clinically appropriate intervention?at this time.? We will monitor/initiate medications and make changes as indicated.? Her likely length of stay 7-10 days. Coding Level of Care Code Acute Code for [facility] Fwd Diagnoses Drug-induced psychotic disorder F19.959 Post-traumatic stress disorder, chronic F43.12 Methamphetamine dependence F15.20 Depression, unspecified F32.A
--- NOTE | 2023-03-23 20:47 | PC.NURSE ---
RESTING IN BED, AROUSES AND ANSWERS ASSESSMENT QUESTIONS THEN ROLLED OVER AND WENT BACK TO SLEEPING. DENIES PAIN, SI/HI And AVH AT THIS TIME. RATES ANXIETY AND DEPRSSION 0/10. NOTED TO HAVE FLAT AFFECT AND EVASIVE WITH QUESTIONS. ALL QUESTIONS ANSWERED AND SUPPORT WAS VOICED.
--- NOTE | 2023-03-23 22:09 | PC.NURSE ---
Patient refused vitals. RR is 18
[2023-03-24 06:00] VITALS: RESP 18
--- NOTE | 2023-03-24 06:52 | PC.NURSE ---
Attempted to obtain vitals from patient. Patient stated no thank you. RR documented. Charge nurse notified.
[2023-03-24] MEDS: buprenorphine-naloxone 4-1 mg Film 1 EACH SUBLINGUAL (08:30)
[2023-03-24] MEDS: paliperidone ER 6 mg Tablet PO (08:30)
--- NOTE | 2023-03-24 13:37 | W.PM.NPUPNS ---
Subjective NPU Subjective: Patient presented today reporting that she was doing fine and no problems with medications reported. She denied any side effects. We discussed the fact that some possibilities were starting to exist for where she might be able to go next and she denied any reason why she would be resistant to those recommendations. She continued to have limited spontaneous speech. Mental Status Exam MSE Comments: This is a morbidly obese white female in hospital scrubs malodorous with fleeting eye contact. She appeared somewhat childlike. No abnormal involuntary movements except for significant psychomotor retardation. She was minimally cooperative with exam in no acute distress. Her speech had limited in production and monotone in quality and limited in spontaneity of speech. Mood was described as good. Her affect was bizarre and mood incongruent. Her thought process was linear but superficial. Thought content: Patient denies suicidal or homicidal ideation, Delusions of parasitic infestation remains. She denied auditory or visual hallucinations. Attention and concentration are limited and memory appears unreliable but none were formally tested. Her insight is poor. Her judgment is poor. Her impulse control appeared impaired. Intellectual ability appears limited. Vitals/I&O/Wt Last Vital Signs Temp 98.5 F 03/21/23 14:00 Pulse 82 03/21/23 14:00 Resp 18 03/24/23 06:00 BP 127/78 03/21/23 14:00 Pulse Ox 96 03/21/23 14:00 O2 Del Method Room Air 03/19/23 22:00 Data NPU 03/14/23 08:20 03/14/23 08:20 A&P Assessment and plan (1) Drug-induced psychotic disorder: (2) Post-traumatic stress disorder, chronic: (3) Methamphetamine dependence: (4) Depression, unspecified: Plan This is a 32-year-old white female with schizophrenia, known from previous significant hospitalization who presents again with disorganized thinking and disorganized behavior unable to maintain safety while residing in an inpatient substance abuse treatment center off of her medication. 1. Encourage individual, group and milieu therapy. 2. Recommend sober living treatment at the highest level of care to which the patient is willing to commit. 3. Continue q-15 minute checks for safety.? 4. Continue Invega as prescribed. Invega 234mg ordered IM and given on (03/17/23) 2nd dose of invega 156mg given on 03/21/23. Next dose is due 04/21/2023. She likely will need to go back to every 3 week administration of the 234 mg. 5. Patient under guardianship, level 2 completed-seeking extended placement at assisted living facility or even higher level of care. Awaiting assisted facility. Patient likely at baseline now, able to maintain safety here, but not able to live independently. Involuntary Hold Information 96 Hour Hold: 96 Hour Involuntary Admission: No 96 Hour Hold Ending Date: 12/02/22 96 Hour Hold Ending Time: 15:55 Attestations NPU Medical Necessity Statement*: Inpatient hospitalization is medically necessary and the clinically appropriate intervention?at this time.? We will monitor/initiate medications and make changes as indicated.? Her likely length of stay 7-10 days. Her length of stay will likely be dictated by finding placement. Coding Level of Care Code Acute Code for g Fwd Diagnoses Drug-induced psychotic disorder F19.959 Post-traumatic stress disorder, chronic F43.12 Methamphetamine dependence F15.20 Depression, unspecified F32.A
[2023-03-24 14:00] VITALS: BP 108/71; PULSE 96; RESP 16; TEMP 37; O2SAT 94
[2023-03-24 20:15] VITALS: RESP 18
--- NOTE | 2023-03-24 20:16 | PC.NURSE ---
Attempted to obtain vitals. Patient stated no thank you. RR documented
--- NOTE | 2023-03-24 20:40 | PC.NURSE ---
EVASIVE WITH ASSESSMENT, ANSWERS ALL QUESTIONS NO NO NO NO. DENIES SI/HI AND AVH AT THIS TIME. DENIES PAIN. PT IS OBSERVED TO HAVE A FLAT AFFECT AND NO EYE CONTACT DURING ASSESSMENT.RATES ANXIETY AND DEPRESSION 0/10 AND NO SUPPORT WAS VOICED. PT ROLLED OVER AND WENT BACK TO SLEEP.
--- NOTE | 2023-03-25 06:48 | PC.NURSE ---
Attempted to obtain patients vitals. Patient states no thank you. Educated patient on the importance of obtaining vitals. Patient repeated herself with a no thank you.Charge Nurse notified.
[2023-03-25] MEDS: paliperidone ER 6 mg Tablet PO (08:42)
[2023-03-25] MEDS: buprenorphine-naloxone 4-1 mg Film 1 EACH SUBLINGUAL (08:42)
[2023-03-25 14:00] VITALS: BP 104/72; PULSE 127; RESP 20; TEMP 37; O2SAT 92
--- NOTE | 2023-03-25 14:59 | W.PM.NPUPNS ---
Subjective NPU Subjective: Patient presented today reporting that she is doing okay. She has been fairly isolative and staying in bed a lot. She reports being happy with the news that she will be discharged on Tuesday and we discussed her talking to social work team about the specifics of the facility. Mental Status Exam MSE Comments: This is a morbidly obese white female in hospital scrubs malodorous with fleeting eye contact. She appeared somewhat childlike. No abnormal involuntary movements except for significant psychomotor retardation. She was minimally cooperative with exam in no acute distress. Her speech had limited in production and monotone in quality and limited in spontaneity of speech. Mood was described as good. Her affect was bizarre and mood incongruent. Her thought process was linear but superficial. Thought content: Patient denies suicidal or homicidal ideation, Delusions of parasitic infestation remains. She denied auditory or visual hallucinations. Attention and concentration are limited and memory appears unreliable but none were formally tested. Her insight is poor. Her judgment is poor. Her impulse control appeared impaired. Intellectual ability appears limited. Vitals/I&O/Wt Last Vital Signs Temp 98.6 F 03/24/23 14:00 Pulse 96 03/24/23 14:00 Resp 18 03/24/23 20:15 BP 108/71 03/24/23 14:00 Pulse Ox 94 03/24/23 14:00 O2 Del Method Room Air 03/19/23 22:00 Data NPU 03/14/23 08:20 03/14/23 08:20 A&P Assessment and plan (1) Drug-induced psychotic disorder: (2) Post-traumatic stress disorder, chronic: (3) Methamphetamine dependence: (4) Depression, unspecified: Plan This is a 32-year-old white female with schizophrenia, known from previous significant hospitalization who presents again with disorganized thinking and disorganized behavior unable to maintain safety while residing in an inpatient substance abuse treatment center off of her medication. 1. Encourage individual, group and milieu therapy. 2. Recommend sober living treatment at the highest level of care to which the patient is willing to commit. 3. Continue q-15 minute checks for safety.? 4. Continue Invega as prescribed. Invega 234mg ordered IM and given on (03/17/23) 2nd dose of invega 156mg given on 03/21/23. Next dose is due 04/21/2023. She likely will need to go back to every 3 week administration of the 234 mg. 5. Patient under guardianship, level 2 completed-seeking extended placement at assisted living facility or even higher level of care. Awaiting snf facility. Patient likely at baseline now, able to maintain safety here, but not able to live independently. Patient has been accepted at a facility and will be discharged on Tuesday morning. Involuntary Hold Information 96 Hour Hold: 96 Hour Involuntary Admission: No 96 Hour Hold Ending Date: 12/02/22 96 Hour Hold Ending Time: 15:55 Attestations NPU Medical Necessity Statement*: Inpatient hospitalization is medically necessary and the clinically appropriate intervention?at this time.? We will monitor/initiate medications and make changes as indicated.? Her likely length of stay 3 days. Coding Level of Care Code Acute Code for [facility] Fwd Diagnoses Drug-induced psychotic disorder F19.959 Post-traumatic stress disorder, chronic F43.12 Methamphetamine dependence F15.20 Depression, unspecified F32.A
--- NOTE | 2023-03-25 20:30 | PC.NURSE ---
EVASIVE WITH RN DURING ASSESSMENT, ONLY ANSWERED NO NO NO TO EVERY QUESTION. DENIES SI/HI AND AVH AT THIS TIME. DENIES PAIN. PT HAS LIMITED EYE CONTACT, FLAT AFFECT AND WITHDRAWS AND ISOLATES TO ROOM. SUPPORT WAS VOICED.
[2023-03-25 20:43] VITALS: BP 94/65; PULSE 99; RESP 18; TEMP 37.2; O2SAT 94
[2023-03-26 06:00] VITALS: BP 112/44; PULSE 95; RESP 16; TEMP 37; O2SAT 95
[2023-03-26] MEDS: buprenorphine-naloxone 4-1 mg Film 1 EACH SUBLINGUAL (10:00)
[2023-03-26] MEDS: paliperidone ER 6 mg Tablet PO (10:00)
--- NOTE | 2023-03-26 14:06 | P.NPUPN_ITS ---
Subjective NPU 2 Subjective: Patient presents today with reports of staff that she has been unchanged. She was moved to the other side and continues to lay in that bed. She was seen up a couple times for meals and brief requests from the nursing station. We discussed the fact that she is likely leaving on Tuesday and that we have found a placement which she reports being happy to be out of here. Mental Status Exam 2 MSE Comments: This is a morbidly obese white female in hospital scrubs malodorous with fleeting eye contact. She appeared somewhat childlike. No abnormal involuntary movements except for significant psychomotor retardation. She was minimally cooperative with exam in no acute distress. Her speech had limited in production and monotone in quality and limited in spontaneity of speech. Mood was described as good. Her affect was bizarre and mood incongruent. Her thought process was linear but superficial. Thought content: Patient denies suicidal or homicidal ideation, Delusions of parasitic infestation remains. She denied auditory or visual hallucinations. Attention and concentration are limited and memory appears unreliable but none were formally tested. Her insight is poor. Her judgment is poor. Her impulse control appeared impaired. Intellectual ability appears limited. Vitals/I&O/Wt Last Vital Signs Temp 98.6 F 03/26/23 06:00 Pulse 95 03/26/23 06:00 Resp 16 03/26/23 06:00 BP 112/44 03/26/23 06:00 Pulse Ox 95 03/26/23 06:00 O2 Del Method Room Air 03/26/23 06:00 Data NPU 03/14/23 08:20 03/14/23 08:20 A&P Assessment and plan (1) Drug-induced psychotic disorder: (2) Post-traumatic stress disorder, chronic: (3) Methamphetamine dependence: (4) Depression, unspecified: Plan This is a 32-year-old white female with schizophrenia, known from previous significant hospitalization who presents again with disorganized thinking and disorganized behavior unable to maintain safety while residing in an inpatient substance abuse treatment center off of her medication. 1. Encourage individual, group and milieu therapy. 2. Recommend sober living treatment at the highest level of care to which the patient is willing to commit. 3. Continue q-15 minute checks for safety.? 4. Continue Invega as prescribed. Invega 234mg ordered IM and given on (03/17/23) 2nd dose of invega 156mg given on 03/21/23. Next dose is due 04/21/2023. She likely will need to go back to every 3 week administration of the 234 mg. 5. Patient under guardianship, level 2 completed-seeking extended placement at assisted living facility or even higher level of care. Awaiting group home facility. Patient likely at baseline now, able to maintain safety here, but not able to live independently. Patient has been accepted at a facility and will be discharged on Tuesday morning. Involuntary Hold Information 2 96 Hour Hold: 96 Hour Involuntary Admission: No 96 Hour Hold Ending Date: 96 Hour Hold Ending Time: 15:55 Attestations NPU 2 Medical Necessity Statement*: Inpatient hospitalization is medically necessary and the clinically appropriate intervention?at this time.? We will monitor/initiate medications and make changes as indicated.? Her likely length of stay 2 days. Coding Level of Care Code Acute Code for [facility] Diagnoses Drug-induced psychotic disorder F19.959 Post-traumatic stress disorder, chronic F43.12 Methamphetamine dependence F15.20 Depression, unspecified F32.A
[2023-03-27 06:00] VITALS: BP 109/71; PULSE 98; RESP 16; TEMP 36.9; O2SAT 94
--- NOTE | 2023-03-27 08:15 | P.NPUPN_ITS ---
Subjective NPU 2 Subjective: Patient presented today continuing to be fairly lethargic and spending most of her time in bed. We continued to discuss the fact that the plan is for her to discharge tomorrow to a facility and she does seem to be appreciative of not having to be on the unit anymore. She is eating appropriately and laying in bed too much but otherwise denied any side effects from the medications. Mental Status Exam 2 MSE Comments: This is a morbidly obese white female in hospital scrubs malodorous with fleeting eye contact. She appeared somewhat childlike. No abnormal involuntary movements except for significant psychomotor retardation. She was minimally cooperative with exam in no acute distress. Her speech had limited in production and monotone in quality and limited in spontaneity of speech. Mood was described as good. Her affect was bizarre and mood incongruent. Her thought process was linear but superficial. Thought content: Patient denies suicidal or homicidal ideation, Delusions of parasitic infestation remains. She denied auditory or visual hallucinations. Attention and concentration are limited and memory appears unreliable but none were formally tested. Her insight is poor. Her judgment is poor. Her impulse control appeared impaired. Intellectual ability appears limited. Vitals/I&O/Wt Last Vital Signs Temp 98.5 F 03/27/23 06:00 Pulse 98 03/27/23 06:00 Resp 16 03/27/23 06:00 BP 109/71 03/27/23 06:00 Pulse Ox 94 03/27/23 06:00 O2 Del Method Room Air 03/26/23 06:00 Weight last 48 hrs Weight 131.905 kg Weight 131.905 kg Data NPU 03/14/23 08:20 03/14/23 08:20 A&P Assessment and plan (1) Drug-induced psychotic disorder: (2) Post-traumatic stress disorder, chronic: (3) Methamphetamine dependence: (4) Depression, unspecified: Plan This is a 32-year-old white female with schizophrenia, known from previous significant hospitalization who presents again with disorganized thinking and disorganized behavior unable to maintain safety while residing in an inpatient substance abuse treatment center off of her medication. 1. Encourage individual, group and milieu therapy. 2. Recommend sober living treatment at the highest level of care to which the patient is willing to commit. 3. Continue q-15 minute checks for safety.? 4. Continue Invega as prescribed. Invega 234mg ordered IM and given on (03/17/23) 2nd dose of invega 156mg given on 03/21/23. Next dose is due 04/21/2023. She likely will need to go back to every 3 week administration of the 234 mg. 5. Patient under guardianship, level 2 completed-seeking extended placement at assisted living facility or even higher level of care. Awaiting care home facility. Patient likely at baseline now, able to maintain safety here, but not able to live independently. Patient has been accepted at a facility and will be discharged on tomorrow morning. Involuntary Hold Information 2 96 Hour Hold: 96 Hour Involuntary Admission: No 96 Hour Hold Ending Date: 96 Hour Hold Ending Time: 15:55 Attestations NPU 2 Medical Necessity Statement*: Inpatient hospitalization is medically necessary and the clinically appropriate intervention?at this time.? We will monitor/initiate medications and make changes as indicated.? Her likely length of stay 1 days. Coding Level of Care Code [facility] Diagnoses Drug-induced psychotic disorder F19.959 Post-traumatic stress disorder, chronic F43.12 Methamphetamine dependence F15.20 Depression, unspecified F32.A
[2023-03-27] MEDS: buprenorphine-naloxone 4-1 mg Film 1 EACH SUBLINGUAL (09:40)
[2023-03-27] MEDS: paliperidone ER 6 mg Tablet PO (09:40)
[2023-03-27] MEDS: nicotine 2 mg Gum BUCCAL (09:40)
[2023-03-28 06:00] VITALS: BP 95/64; PULSE 86; RESP 16; TEMP 36.8; O2SAT 95
[2023-03-28] MEDS: buprenorphine-naloxone 4-1 mg Film 1 EACH SUBLINGUAL (12:10)
[2023-03-28] MEDS: paliperidone ER 6 mg Tablet PO (12:10)
--- NOTE | 2023-03-28 13:02 | PC.NURSE ---
called report to [facility], [place] at [phone].
--- NOTE | 2023-03-28 14:18 | W.PM.NPUDCS ---
Diagnoses at Discharge Discharge Diagnosis (1) Drug-induced psychotic disorder: Status: Inactive (2) Post-traumatic stress disorder, chronic: Status: Inactive (3) Methamphetamine dependence: Status: Inactive (4) Depression, unspecified: Status: Inactive Reason for Visit Reason for Visit: [facility] Involuntary Hold Information 96 Hour Hold: 96 Hour Involuntary Admission: No 96 Hour Hold Ending Date: 12/02/22 96 Hour Hold Ending Time: 15:55 Mental Status Exam MSE Comments: This is a morbidly obese white female in hospital scrubs malodorous with fleeting eye contact. She appeared somewhat childlike. No abnormal involuntary movements except for significant psychomotor retardation. She was minimally cooperative with exam in no acute distress. Her speech had limited in production and monotone in quality and limited in spontaneity of speech. Mood was described as good. Her affect was bizarre and mood incongruent. Her thought process was linear but superficial. Thought content: Patient denies suicidal or homicidal ideation, Delusions of parasitic infestation remains. She denied auditory or visual hallucinations. Attention and concentration are limited and memory appears unreliable but none were formally tested. Her insight is poor. Her judgment is poor. Her impulse control appeared impaired. Intellectual ability appears limited. Discharge Data Studies Completed and Pending: Laboratory Results WBC 7.20 10^3/uL (3.2 9-11.43) 03/14/23 08:20 RBC 4.83 10^6/uL (3.8 5-5.65) 03/14/23 08:20 Hgb 14.70 g/dL (11.27 -16.99) 03/14/23 08:20 Hct 43.5 % (36-47) 03/14/23 08:20 MCV 90.1 fl (85-98) 03/14/23 08:20 MCH 30.4 pg (27-33) 03/14/23 08:20 MCHC 33.8 g/dL (30-55) 03/14/23 08:20 RDW 11.8 % (12.1-15.1 ) L 03/14/23 08:20 Plt Count 233 10^3/cmm (157 -399) 03/14/23 08:20 MPV 9.2 fL (7.4-10.4) 03/14/23 08:20 Neut % (Auto) 59.2 % 03/14/23 08:20 Lymph % (Auto) 30.6 % 03/14/23 08:20 Custer % (Auto) 7.2 % 03/14/23 08:20 Eos % (Auto) 1.9 % 03/14/23 08:20 Baso % (Auto) 0.4 % 03/14/23 08:20 Neut # (Auto) 4.26 10^3/uL (1.8 -7.7) 03/14/23 08:20 Lymph # (Auto) 2.2 10^3/uL (0.8- 4.8) 03/14/23 08:20 Custer # (Auto) 0.5 10^3/uL (0.2- 0.9) 03/14/23 08:20 Eos # (Auto) 0.1 10^3/uL (0.0- 0.8) 03/14/23 08:20 Baso # (Auto) 0.0 10^3/uL (0.0- 0.1) 03/14/23 08:20 Nucleated RBC % (a uto) 0 % 03/14/23 08:20 Nucleated RBCs # 0.0 /100WBC 03/14/23 08:20 Sodium 137 mmol/L (136-1 45) 03/14/23 08:20 Potassium 4.7 mmol/L (3.5-5 .1) 03/14/23 08:20 Chloride 102 mmol/L (98-10 7) 03/14/23 08:20 Carbon Dioxide 24 mmol/L (22-29) 03/14/23 08:20 Anion Gap 15.7 (5-19) 03/14/23 08:20 BUN 8 mg/dL (6-20) 03/14/23 08:20 Creatinine 0.7 mg/dL (0.5-0. 9) 03/14/23 08:20 GFR Calculation 97.0 mL/min (90-1 30) 03/14/23 08:20 Glucose 118 mg/dL (65-115 ) H 03/14/23 08:20 Calculated Osmolal ity 283 mOsm/kg (285- 295) L 03/14/23 08:20 Calcium 9.0 mg/dL (8.5-10 .5) 03/14/23 08:20 Total Bilirubin 0.2 mg/dL (0.15-1 .2) 03/14/23 08:20 AST 13 U/L (0-32) 03/14/23 08:20 ALT 14 U/L (0-33) 03/14/23 08:20 Alkaline Phosphata se 83 U/L (35-105) 03/14/23 08:20 Total Protein 7.0 g/dL (6.6-8.7 ) 03/14/23 08:20 Albumin 3.9 g/dL (3.5-5.2 ) 03/14/23 08:20 Globulin 3.1 g/dL (1.3-4.6 ) 03/14/23 08:20 TSH 2.01 uIU/mL (0.27 -4.20) 03/09/23 11:43 HCG, Qual Negative (Negati ve) 03/09/23 13:10 Urine Color Yellow (Yellow) 03/09/23 13:10 Urine Appearance Hazy (CLEAR) A 03/09/23 13:10 Urine pH 5 (5-7) 03/09/23 13:10 Ur Specific Gravit y 1.025 (1.005-1.0 30) 03/09/23 13:10 Urine Protein Neg (Negative) 03/09/23 13:10 Urine Glucose (UA) Norm (Normal) 03/09/23 13:10 Urine Ketones 1+ (Negative) H 03/09/23 13:10 Urine Blood Neg (Negative) 03/09/23 13:10 Urine Nitrate Negative (Negati ve) 03/09/23 13:10 Urine Bilirubin Neg (Negative) 03/09/23 13:10 Urine Urobilinogen 1 mg/dL (Negative ) H 03/09/23 13:10 Ur Leukocyte Hanh ase 1+ (Negative) H 03/09/23 13:10 Urine RBC 0-4 /hpf (0-2) H 03/09/23 13:10 Urine WBC 0-4 /hpf (0-5) H 03/09/23 13:10 Ur Squamous Epith Cells 15-25 /hpf (0-5) H 03/09/23 13:10 Amorphous Sediment Not Reportable 03/09/23 13:10 Urine Bacteria 1+ /hpf (NONE) H 03/09/23 13:10 Urine Mucus 1+ /hpf 03/09/23 13:10 Urine Yeast 2+ /hpf H 03/09/23 13:10 Salicylates 0.6 mg/dL (3-10) L 03/09/23 11:43 Urine Opiates Scre en Negative ng/mL (N egative) 03/09/23 13:10 Acetaminophen < 5.0 ug/mL (10-3 0) L 03/09/23 11:43 Ur Barbiturates Sc reen Negative ng/mL (N egative) 03/09/23 13:10 Ur Phencyclidine S crn Negative ng/mL (N egative) 03/09/23 13:10 Ur Amphetamines Sc reen Negative ng/mL (N egative) 03/09/23 13:10 U Benzodiazepines Scrn Negative ng/mL (N egative) 03/09/23 13:10 Urine Cocaine Scre en Negative ng/mL (N egative) 03/09/23 13:10 U Marijuana (THC) Screen Negative ng/mL (N egative) 03/09/23 13:10 Ethyl Alcohol < 10 mg/dL (0-10) 03/09/23 11:43 C.trachomatis RNA (TMA) Not detected (NO T DETECTED) 03/19/23 13:35 Chlamydia/GC Comme nt See note 03/19/23 13:35 N.gonorrhoeae RNA (TMA) Not detected (NO T DETECTED) 03/19/23 13:35 T. vaginalis Amp R NA Not detected (NO T DETECTED) 03/19/23 13:35 Vitals: Last Vital Signs Temp 98.3 F 03/28/23 06:00 Pulse 86 03/28/23 06:00 Resp 16 03/28/23 06:00 BP 95/64 03/28/23 06:00 Pulse Ox 95 03/28/23 06:00 O2 Del Method Room Air 03/28/23 06:00 Discharge Plan Discharge Patient Disposition: Home Condition: Stable Prescriptions: New trazodone 50 mg Tablet 50 mg PO BEDTIME PRN (Reason: Sleep) 3 Days Qty: 3 0RF buprenorphine-naloxone 4-1 mg Film 1 film sublingual DAILY 3 Days Qty: 3 0RF Continued albuterol sulfate 90 mcg/actuation HFA aerosol inhaler 1 inh inhalation QID PRN (Reason: shortness of breath or wheezing) Qty: 8.5 0RF paliperidone [Invega] 6 mg Tablet Extended Release 24 Hr 6 mg PO QAM 3 Days Qty: 3 0RF Invega Sustenna 234 mg/1.5 mL syringe 234 mg IM .Q 3 weeks Qty: 1.5 2RF Rx Instructions: next injection 04/13/23 Discontinued gabapentin 300 mg capsule 300 mg PO BID Lamictal 100 mg Tablet 100 mg PO QPM Discharge Orders: Discharge Order (Routine); Ordered 03/28/23 Ordered By: Yonatan Gurrola Referrals: Braden Powell MD [Other] - 03/29/23 8:00 am (Will visit at the facility and time/date is only estimated) [facility] [Other] Discharge Diet: Regular Discharge Activity: Resume usual activity Patient Instructions: Opioid Safety Discharge Attestations NPU Time Spent in Discharge Care*: less than 30 min Specific Discharge Activities: Specific discharge activities: educating patient, discussing with case preparer and liner/social workers/dc planners, documenting/other paperwork and evaluating patient/reviewing data Coding Level of Care Code Acute Code for g Fwd Diagnoses Drug-induced psychotic disorder F19.959 Post-traumatic stress disorder, chronic F43.12 Methamphetamine dependence F15.20 Depression, unspecified F32.A
[2023-03-28 14:22] VITALS: BP 95/64; PULSE 86; RESP 16; TEMP 36.8; O2SAT 95
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
== END 2023-03-28 15:36 | disposition home or self-care (01) | DRG 885 ==
LOC: ER 12:19 → NP 13:16
PROVIDERS: Admitting Provider Psychiatry & Neurology Psychiatry; Emergency Provider Emergency Medicine; Visit Provider Psychiatry & Neurology Psychiatry
DX: F20.9 Schizophrenia, unspecified (principal); Z72.0 Tobacco use; F15.11 Other stimulant abuse, in remission; F11.21 Opioid dependence, in remission
CPT/HCPCS: 36415; 80053; 80306; 80307; 81001; 81025; 84443; 85025; 87491; 87591; 93005; 96372; 97150; 97165; 99285; J0573; Q0162; Q0163